=== PATIENT | male | born 1950 | race Caucasian/White ===

== ENCOUNTER → 2016-10-04 | Outpatient (CLI) | payer BC ==
[2016-10-04 07:42] LABS: ALT 43 U/L (21-72); AST 22 U/L (17-59); Alkaline Phosphatase 46 U/L (38-126); Anion Gap 11 mmol/L; Blood Urea Nitrogen 32 mg/dL (9-20); Calcium 9.5 mg/dL (8.4-10.2); Carbon Dioxide 26 mmol/L (22-30); Chloride 105 mmol/L (98-107); Cholesterol 197 mg/dL (<200); Glucose 102 mg/dL (74-99); HDL Cholesterol 38 mg/dL (40-60); Non-African American GFR(MDRD) >60 (>60 ml/min/1.73 sqM); Potassium 3.8 mmol/L (3.5-5.1); Sodium 142 mmol/L (137-145); Total Bilirubin 0.6 mg/dL (0.2-1.3); Total Protein 7.5 g/dL (6.3-8.2); Triglycerides 257 mg/dL (<150)
== END | disposition home or self-care (01) ==
LOC: LABWHC1 06:39
PROVIDERS: ATTEND Internal Medicine Endocrinology, Diabetes & Metabolism
DX: E11.65 Type 2 diabetes mellitus with hyperglycemia (principal)
CPT/HCPCS: 36415; 80053; 80061; 82043

== ENCOUNTER → 2018-01-01 | Outpatient (CLI) | payer MEDICARE ==
[2018-01-01 13:26] LABS: ALT 31 U/L (21-72); AST 21 U/L (17-59); Albumin 4.5 g/dL (3.5-5.0); Alkaline Phosphatase 67 U/L (38-126); Anion Gap 14 mmol/L; Blood Urea Nitrogen 27 mg/dL (9-20); Calcium 9.8 mg/dL (8.4-10.2); Carbon Dioxide 29 mmol/L (22-30); Chloride 98 mmol/L (98-107); Cholesterol 160 mg/dL (<200); Glucose 110 mg/dL (74-99); HDL Cholesterol 35 mg/dL (40-60); LDL Cholesterol,Calculated 75 mg/dL (0-99); Potassium 4.3 mmol/L (3.5-5.1); Sodium 141 mmol/L (137-145); Total Protein 7.5 g/dL (6.3-8.2); Triglycerides 250 mg/dL (<150)
== END ==
LOC: LABWHC1 12:27
PROVIDERS: ATTEND Internal Medicine Endocrinology, Diabetes & Metabolism
DX: E11.65 Type 2 diabetes mellitus with hyperglycemia (principal)
CPT/HCPCS: 36415; 80053; 80061; 82043; 82570

== ENCOUNTER → 2018-09-25 | Outpatient (CLI) | payer MEDICARE ==
[2018-09-25 09:54] LABS: HGB 15.3 gm/dL (13.0-17.5); MCH 28.5 pg (25.0-35.0); MCHC 32.6 g/dL (31.0-37.0); MCV 87.4 fL (80.0-100.0); Mean Platelet Volume 6.7; Platelet Count 237 k/uL (150-450); RBC 5.38 m/uL (4.30-5.90); RDW 14.5 % (11.5-15.5); WBC 5.5 k/uL (3.8-10.6)
[2018-09-25 10:04] LABS: Anion Gap 9 mmol/L; Blood Urea Nitrogen 30 mg/dL (9-20); Carbon Dioxide 27 mmol/L (22-30); Chloride 105 mmol/L (98-107); Potassium 4.4 mmol/L (3.5-5.1); Sodium 141 mmol/L (137-145)
== END | disposition home or self-care (01) ==
LOC: LABPAT 08:54
PROVIDERS: ATTEND Internal Medicine Interventional Cardiology
DX: I10 Essential (primary) hypertension (principal); I20.9 Angina pectoris, unspecified; I44.7 Left bundle-branch block, unspecified
CPT/HCPCS: 80051; 82565; 84520; 85027

== ENCOUNTER 2018-10-08 10:08 | Day surgery (SDC) | payer MEDICARE ==
[2018-10-06 13:25] VITALS: BMI 51.3
[~2018-10-08 10:08] MED LIST: ALPRAZolam 0.25 MG TAB PO PRN; ALPRAZolam 0.5 MG TAB PO PRN; ASPIRIN 325 MG TAB PO ONE; ATORVASTATIN 80 MG TAB PO ONE; NITROGLYCERIN SL TABS 0.4 MG TAB SUBLINGUAL PRN; SODIUM CHLORIDE 0.9% 1,000 ML in EMPTY BAG 1 BAG IV ONE
[2018-10-08 11:04] VITALS: TEMP 98.1
[2018-10-08 11:06] LABS: Glucose,Whole Blood 131 mg/dL (75-99)
[2018-10-08] MEDS ORDERED: SODIUM CHLORIDE 0.9% 1,000 ML IV ONE (11:16)
[2018-10-08] MEDS ORDERED: HEPARIN SODIUM 1,000 UN/ML (10ML VL) ONE (12:49)
[2018-10-08] MEDS ORDERED: VERAPAMIL 2.5 MG/ML 2 ML AMP ONE (12:49)
[2018-10-08] MEDS ORDERED: LIDOCAINE 1% INJ 10MG/ML (20 ML MDV) ONE (12:49)
[2018-10-08] MEDS ORDERED: fentaNYL (PF) 50 MCG/ML 2 ML AMP ONE (12:49)
[2018-10-08] MEDS ORDERED: fentaNYL (PF) 50 MCG/ML 2 ML AMP IV ONE (12:53)
[2018-10-08] MEDS ORDERED: LIDOCAINE 1% INJ 10MG/ML (20 ML MDV) SQ ONE ×2 (12:56→12:57)
[2018-10-08] MEDS ORDERED: VERAPAMIL SYRINGE (5 MG/10 ML) INTRAARTER ONE (12:57)
[2018-10-08] MEDS ORDERED: HEPARIN SODIUM 1,000 UN/ML (10ML VL) IV ONE (13:00)
[2018-10-08] MEDS ORDERED: IOPAMIDOL-370 125ML BTL INJ ONE (13:12)
[2018-10-08] MEDS ORDERED: RX INFO: IV CONTRAST WAS GIVEN 1 EACH MISC MISCELLANE PRN (13:29)
[2018-10-08] MEDS ORDERED: SODIUM CHLORIDE 0.9% 1,000 ML IV SCH (13:30)
--- NOTE | 2018-10-08 14:08 | CC ---
CARDIAC CATHETERIZATION REPORT Mr. Baez is a 68-year-old male with known history of hypertension, hyperlipidemia, diabetes mellitus, who recently was found to have evidence of left bundle branch block. He has been complaining of progressive dyspnea on exertion. His echocardiogram revealed evidence of mild cardiomyopathy and he had a fixed inferoapical inferoseptal wall defect with mild normalization. In view of that, recommendation made regarding cardiac catheterization. The procedures, risks and complications were discussed with the patient who is in full understanding and agreement. PROCEDURE: Patient was brought to the labeler in a fasting semi-sedated state after receiving fentanyl and Benadryl and achieving moderate conscious sedated state. Using Xylocaine anesthesia and Seldinger technique, a a 6-Vietnamese sheath was introduced in the right radial artery. Selective right and left coronary angiography was performed using 5- Vietnamese 3.5 bend right and left Juan catheter, multiple views of the coronary artery including hemiaxial views obtained. Following that, a 5-Vietnamese tight pigtail catheter was introduced in the left ventricle and a 30 degree JAMISON view of the left ventricle was obtained. Following that, catheter and sheath were removed. Hemostasis was obtained with deployment of a TR band. There was no immediate complication. Patient is returned to his room in stable condition. Of note, the patient received 5000 units of intravenous heparin as well as intra-arterial verapamil. FINDINGS: LEFT MAIN: This is a large-sized vessel bifurcating into left circumflex, left anterior descending artery, left main coronary artery has no evidence of high-grade stenosis. LEFT ANTERIOR DESCENDING ARTERY: This is a large-sized vessel, reaching toward the apex, tapers down the distal third, giving rise to 2 diagonal branches, proximally the left anterior descending artery has a 30% to 40% plaque. The rest of the vessel has no high-grade stenosis. LEFT CIRCUMFLEX: This is a codominant vessel, large in caliber, giving rise to a large obtuse marginal branch, distally giving rise to a PDA and a PLV. The left circumflex as well as branches have no evidence of high-grade stenosis. RIGHT CORONARY ARTERY: This is a codominant vessel, moderate in caliber, bifurcating distally into PDA and posterolateral segment branches. The right coronary artery as well as branches have no evidence of obstructive coronary artery disease. LEFT VENTRICULOGRAM: Left ventriculogram is performed in 30 degree JAMISON view and revealed normal left ventricular size with mild global hypokinesis. The estimated ejection fraction is 45%. There was no significant mitral regurgitation. HEMODYNAMICS: There was no gradient across the aortic valve. The left ventricle end-diastolic pressure was 12 to 14 mmHg. CONCLUSION: 1. Mild proximal LAD plaque. 2. Mildly impaired left ventricular systolic function. RECOMMENDATION: In view of finding anatomy, I would recommend continue medical therapy with aggressive coronary risk modifications being initiated. Depending on his left ventricular systolic function, the patient may be a candidate for a biventricular ICD implantation. Those findings and recommendation were discussed with the patient and his family and they are in full understanding and agreement. Duration of procedure, 21 minutes. MMODL / IJN: [id number] /
--- NOTE | 2018-10-08 14:14 | LTR ---
DATE OF SERVICE: 10/08/2017 RE: BaezGamaliel Dear Dr. Juarez; I had the pleasure to perform cardiac catheterization on Mr. Baez at [facility] on October 08, 2018 and a full copy of the procedure note will be forwarded to you. In brief, he was found to have mild disease involving the proximal LAD with a mildly impaired left ventricular systolic function. At this time, I would recommend to maximize his medical therapy and follow his left ventricular systolic function and depending on his progress, he may be a candidate for biventricular pacing. I will keep you updated on his progress and thank you again for allowing me to participate in this patient's care. Please feel free to call for any questions. Sincerely yours, MD NAYE Cardenas / ALBERTO: [id number] /
[2018-10-08 16:05] VITALS: PULSE 71; RESP 18
[2018-10-08] MEDS ORDERED: INSULIN ASPART 40 UNIT SQ SCH (17:30)
[2018-10-08 18:29] VITALS: BP 133/74
[2018-10-08] MEDS ORDERED: GLIPIZIDE 10 MG PO SCH (21:00)
[2018-10-08] MEDS ORDERED: NON-FORMULARY DRUG (Rosuvastatin 10 MG) PO SCH (21:00)
[2018-10-08] MEDS ORDERED: ENALAPRIL MALEATE 20 MG PO SCH (21:00)
[2018-10-08] MEDS ORDERED: INSULIN GLARGINE HUM REC ANLOG 100 UNIT SQ SCH (21:00)
[2018-10-09] MEDS ORDERED: NON-FORMULARY DRUG (Ubidecarenone [Co Q-10] 100 MG) PO SCH (09:00)
[2018-10-09] MEDS ORDERED: CHLORTHALIDONE 25 MG TAB PO SCH (09:00)
[2018-10-09] MEDS ORDERED: ASPIRIN 81 MG PO SCH (09:00)
[2018-10-09] MEDS ORDERED: ATENOLOL 50 MG TAB PO SCH (09:00)
[2018-10-09] MEDS ORDERED: Canagliflozin [Invokana] 300 MG PO SCH (09:00)
[2018-10-09] MEDS ORDERED: MULTIVITAMINS, THERA 1 EACH TAB PO SCH (12:00)
== END 2018-10-08 18:20 | disposition home or self-care (01) ==
LOC: CATHCVL 10:08
PROVIDERS: ATTEND Internal Medicine Interventional Cardiology
DX: I25.10 Atherosclerotic heart disease of native coronary artery without angina pectoris (principal); I11.9 Hypertensive heart disease without heart failure; I44.7 Left bundle-branch block, unspecified; Z82.49 Family history of ischemic heart disease and other diseases of the circulatory system; E78.2 Mixed hyperlipidemia; E78.00 Pure hypercholesterolemia, unspecified; G47.33 Obstructive sleep apnea (adult) (pediatric); E11.9 Type 2 diabetes mellitus without complications; Z79.4 Long term (current) use of insulin; Z79.899 Other long term (current) drug therapy
CPT/HCPCS: 93458; C1894; C1769; J2001; J3010; J1644; Q9967

== ENCOUNTER → 2018-10-23 | Outpatient (CLI) | payer MEDICARE ==
[2018-10-23 15:48] LABS: Basophils % (A) 1 %; Eosinophils # (A) 0.2 k/uL (0-0.7); Eosinophils % (A) 3 %; HCT 46.6 % (39.0-53.0); HGB 15.5 gm/dL (13.0-17.5); Lymphocytes # (A) 1.2 k/uL (1.0-4.8); Lymphocytes % (A) 16 %; MCH 29.1 pg (25.0-35.0); MCHC 33.2 g/dL (31.0-37.0); MCV 87.5 fL (80.0-100.0); Mean Platelet Volume 6.7; Monocytes # (A) 0.6 k/uL (0-1.0); Monocytes % (A) 8 %; Neutrophils # (A) 5.2 k/uL (1.3-7.7); Neutrophils % (A) 71 %; Platelet Count 236 k/uL (150-450); RBC 5.33 m/uL (4.30-5.90); RDW 14.4 % (11.5-15.5); WBC 7.4 k/uL (3.8-10.6)
[2018-10-23 23:07] LABS: Calcium 9.3 mg/dL (8.7-10.3); Potassium 4.9 mmol/L (3.5-5.5)
[2018-10-24 00:43] LABS: Anion Gap 12.1 mmol/L (4.00-12.00); Carbon Dioxide 26.9 mmol/L (21.6-31.8)
== END | disposition home or self-care (01) ==
LOC: LABWHC1 14:59
PROVIDERS: ATTEND Radiology Radiation Oncology
DX: C61 Malignant neoplasm of prostate (principal); Z92.3 Personal history of irradiation
CPT/HCPCS: 36415; 80048; 84153; 85025

== ENCOUNTER → 2019-04-19 | Outpatient (CLI) | payer MEDICARE ==
[2019-04-19 12:40] LABS: Basophils % (A) 1 %; Eosinophils # (A) 0.2 k/uL (0-0.7); Eosinophils % (A) 3 %; HCT 45.8 % (39.0-53.0); HGB 15.6 gm/dL (13.0-17.5); Lymphocytes # (A) 1.2 k/uL (1.0-4.8); Lymphocytes % (A) 19 %; MCH 29.6 pg (25.0-35.0); MCHC 34.1 g/dL (31.0-37.0); MCV 86.7 fL (80.0-100.0); Monocytes # (A) 0.5 k/uL (0-1.0); Monocytes % (A) 9 %; Neutrophils # (A) 4.3 k/uL (1.3-7.7); Neutrophils % (A) 67 %; Platelet Count 223 k/uL (150-450); RBC 5.28 m/uL (4.30-5.90); RDW 14.2 % (11.5-15.5); WBC 6.4 k/uL (3.8-10.6)
[2019-04-19 19:06] LABS: African American GFR (CKD) 102.1 (60.0-200.0); Anion Gap 7.2 mmol/L (4.00-12.00); BUN/Creat Ratio 42.22 Ratio (12.00-20.00); Calcium 9.6 mg/dL (8.7-10.3); Carbon Dioxide 27.8 mmol/L (21.6-31.8)
== END | disposition home or self-care (01) ==
LOC: LABWHC1 12:10
PROVIDERS: ATTEND Radiology Radiation Oncology
DX: C61 Malignant neoplasm of prostate (principal); Z92.3 Personal history of irradiation
CPT/HCPCS: 36415; 80048; 84153; 85025

== ENCOUNTER → 2019-06-17 | Outpatient (CLI) | payer MEDICARE ==
[2019-06-17 23:35] LABS: African American GFR (CKD) 102.1 (60.0-200.0); Albumin 4.5 g/dL (3.80-4.90); Albumin/Globulin Ratio 1.96 (1.60-3.17); Anion Gap 9.7 mmol/L (4.00-12.00); BUN/Creat Ratio 38.89 Ratio (12.00-20.00); Calcium 9.4 mg/dL (8.7-10.3); Carbon Dioxide 26.3 mmol/L (21.6-31.8); Chol/HDL Ratio 4.47; Globulin 2.3 g/dL (1.6-3.3); LDL Cholesterol,Calculated 62.4 mg/dL (0.0-131.0); Potassium 4.5 mmol/L (3.5-5.5); Total Bilirubin 0.7 mg/dL (0.3-1.2); Total Protein 6.8 g/dL (6.2-8.2); VLDL Calculation 55.6 mg/dL (5.00-40.00)
== END | disposition home or self-care (01) ==
LOC: LABWHC1 09:28
PROVIDERS: ATTEND Internal Medicine Endocrinology, Diabetes & Metabolism
DX: E11.65 Type 2 diabetes mellitus with hyperglycemia (principal)
CPT/HCPCS: 36415; 80053; 80061; 82043; 82570; 84443

== ENCOUNTER 2019-07-16 06:14 | Day surgery (SDC) | payer MEDICARE ==
[2019-07-14 10:40] VITALS: BMI 51.6
[~2019-07-16 06:14] MED LIST changes: -ALPRAZolam 0.25 MG TAB PO PRN; -ALPRAZolam 0.5 MG TAB PO PRN; -ASPIRIN 325 MG TAB PO ONE; -ATORVASTATIN 80 MG TAB PO ONE; +LACTATED RINGERS 1,000 ML IV SCH; -NITROGLYCERIN SL TABS 0.4 MG TAB SUBLINGUAL PRN; -SODIUM CHLORIDE 0.9% 1,000 ML in EMPTY BAG 1 BAG IV ONE
[2019-07-16 06:50] VITALS: TEMP 97.9
[2019-07-16 06:50] LABS: Glucose,Whole Blood 86 mg/dL (75-99)
[2019-07-16] MEDS ORDERED: fentaNYL (PF) 50 MCG/ML 2 ML AMP ONE (07:01)
[2019-07-16] MEDS ORDERED: PROPOFOL 10 MG/ML 20 ML VIAL IV ONE (07:01)
[2019-07-16] MEDS ORDERED: MIDAZOLAM 2 MG/2 ML VIAL ONE (07:01)
--- NOTE | 2019-07-16 07:36 | P.PCN ---
Date of Procedure: 07/16/19 Procedure(s) Performed: BRIEF HISTORY: Patient is a 69-year-old pleasant white male scheduled for an elective colonoscopy as a part of screening for colorectal neoplasia. PROCEDURE PERFORMED: Colonoscopy with snare polypectomy. PREOPERATIVE DIAGNOSIS: Screening for colon cancer. IV sedation per Anesthesia. PROCEDURE: After informed consent was obtained, the patient, was brought into the endoscopy unit. IV sedation was administered by Anesthesia under continuous monitoring. Digital rectal examination was normal. Initially the Olympus CF-160 flexible video colonoscope was then inserted in the rectum, gradually advanced into the cecum without any difficulty. Careful examination was performed as the scope was gradually being withdrawn. Ileocecal valve and the appendiceal orifice were visualized and appeared normal. Prep was extremely poor throughout the entire colon. Thorough irrigation was performed. Visualized portions of the mucosa of the cecum, appeared normal. In the ascending colon there were 2 polyps measuring 5 mm in size both of which were removed by snare polypectomy. In the proximal transverse colon there was a 2 mm sessile polyp removed by snare polypectomy. Rest of the visualized portions of the mucosa of the ascending colon, transverse colon, descending colon, sigmoid colon, and rectum appeared normal. . Areas in the descending colon; could not be adequately visualized because of poor prep that could not be thoroughly irrigated. Retroflexion was performed in the rectum and no lesions were seen. The patient tolerated the procedure well. IMPRESSION: 5 mm proximal ascending colon polyp status post polypectomy 2 mm sessile transverse colon polyp status post-polypectomy Extremely poor prep throughout the entire colon RECOMMENDATIONS: Findings of this examination were discussed with the patient as well as his family. He was advised to follow with the biopsy results and have a repeat coloscopy in 3 years
[2019-07-16 07:40] VITALS: RESP 16
[2019-07-16 07:45] LABS: Glucose,Whole Blood 82 mg/dL (75-99)
[2019-07-16 07:55] VITALS: BP 103/67; PULSE 90
== END 2019-07-16 08:23 | disposition home or self-care (01) ==
LOC: ORWHC2ENDO 06:14
PROVIDERS: ATTEND Internal Medicine Gastroenterology
DX: Z12.11 Encounter for screening for malignant neoplasm of colon (principal); D12.2 Benign neoplasm of ascending colon; I10 Essential (primary) hypertension; E78.5 Hyperlipidemia, unspecified; E11.9 Type 2 diabetes mellitus without complications; Z87.891 Personal history of nicotine dependence; Z85.46 Personal history of malignant neoplasm of prostate; Z79.4 Long term (current) use of insulin; Z79.899 Other long term (current) drug therapy; Z96.659 Presence of unspecified artificial knee joint
CPT/HCPCS: 88305; 45385; J2250; J3010; J2704

== ENCOUNTER → 2019-10-07 | Outpatient (CLI) | payer MEDICARE ==
[2019-10-07 13:08] LABS: Urine Creatinine 65.3 mg/dL
[2019-10-07 14:01] LABS: Hemoglobin A1C 8.3 % (4.0-6.0)
[2019-10-07 14:24] LABS: African American GFR (CKD) 102.1 (60.0-200.0); Albumin 4.8 g/dL (3.80-4.90); Albumin/Globulin Ratio 2.09 (1.60-3.17); Anion Gap 11.5 mmol/L (4.00-12.00); BUN/Creat Ratio 45.56 Ratio (12.00-20.00); Calcium 9.6 mg/dL (8.7-10.3); Carbon Dioxide 24.5 mmol/L (21.6-31.8); Globulin 2.3 g/dL (1.6-3.3); Non-African American GFR(CKD) 88.1 (60.0-200.0); Potassium 4.6 mmol/L (3.5-5.5); Total Bilirubin 0.6 mg/dL (0.2-1.2); Total Protein 7.1 g/dL (6.2-8.2)
[2019-10-07 14:25] LABS: Chol/HDL Ratio 4.27; LDL Cholesterol,Calculated 58.6 mg/dL (0.0-131.0); VLDL Calculation 49.4 mg/dL (5.00-40.00)
== END | disposition home or self-care (01) ==
LOC: LABWHC1 07:30
PROVIDERS: ATTEND Internal Medicine Endocrinology, Diabetes & Metabolism
DX: E11.65 Type 2 diabetes mellitus with hyperglycemia (principal)
CPT/HCPCS: 36415; 80053; 80061; 82043; 82570; 83036; 84443

== ENCOUNTER 2020-01-25 05:19 | Emergency (ER) | payer MEDICARE ==
[2020-01-25 05:30] VITALS: PULSE 111; RESP 22; TEMP 98.4
[2020-01-25 05:56] LABS: Appearance,Urine Cloudy (Clear); Bilirubin,Urine Negative (Negative); Blood,Urine Large (Negative); Color,Urine Red; Glucose,Urine (UA) 4+ (Negative); Ketones,Urine Negative (Negative); Leukocyte Esterase,Urine Moderate (Negative); Nitrite,Urine Negative (Negative); PH, Urine 5.5 (5.0-8.0); Protein,Urine 1+ (Negative); RBC,Urine >182 /hpf (0-5); Specific Gravity,Urine 1.017 (1.001-1.035); Urobilinogen,Urine <2.0 mg/dL (<2.0)
[2020-01-25 05:57] LABS: WBC,Urine 10 /hpf (0-5)
--- NOTE | 2020-01-25 05:58 | ED ---
Male Urogenital HPI - General Chief complaint: Urogenital Stated complaint: Blood in urine Time Seen by Provider: 01/25/20 05:51 Source: patient Mode of arrival: ambulatory Limitations: no limitations - History of Present Illness Initial comments: This patient is 69-year-old man who presents to be evaluated for symptoms related to urination that is been going on for about 2 hours now. Patient states that he started feeling near to urinate and then noticed that his urine initially had a or just tinge and then became frankly bloody. He is feeling fr equent urge to urinate but only urinating small volumes. He denies other symptoms. No fever or chills. No dysuria. No penile discharge. No abdominal or flank pain. No testicular pain or mass. MD Complaint: other Onset/Timin -: hour(s) Severity scale (1-10): 0 Consistency: constant Improves with: none Worsens with: none Reports: blood in urine, other (Frequency) - Related Data Home Medications Medication Instructions Recorded Confirmed Atenolol/Chlorthalidone 1 tab PO DAILY 09/13/17 01/25/20 [Atenolol-Chlorthalidone 50-25] Canagliflozin [Invokana] 300 mg PO DAILY 09/13/17 01/25/20 Enalapril Maleate [Vasotec] 20 mg PO BID 09/13/17 01/25/20 Multivitamin/Iron/Folic Acid 1 tab PO DAILY 09/13/17 01/25/20 [Centrum Complete Multivit Tab] Ubidecarenone [Co Q-10] 100 mg PO DAILY 09/13/17 01/25/20 glipiZIDE XL [Glucotrol XL] 10 mg PO BID 09/13/17 01/25/20 metFORMIN HCL ER [Glucophage Xr] 1,000 mg PO BID 09/14/17 01/25/20 Insulin Aspart [NovoLOG Flexpen] 40 units SQ TID-W/MEALS 10/06/18 01/25/20 Insulin Glargine,Hum.rec.anlog 100 units SQ BID 10/06/18 01/25/20 [Tousarah Solostar] Rosuvastatin Calcium 20 mg PO HS 07/14/19 01/25/20 Previous Rx's Medication Instructions Recorded Ciprofloxacin HCl [Cipro] 500 mg PO Q12HR #14 tablet 01/25/20 Phenazopyridine [Pyridium] 100 mg PO TID #6 tablet 01/25/20 Allergies Allergy/AdvReac Type Severity Reaction Status Date / Time No Known Allergies Allergy Verified 01/25/20 05:30 Review of Systems ROS Statement: Those systems with pertinent positive or pertinent negative responses have been documented in the HPI. ROS Other: All systems not noted in ROS Statement are negative. Constitutional: Denies: fever, chills Respiratory: Denies: cough, dyspnea Cardiovascular: Denies: chest pain, palpitations, edema Gastrointestinal: Denies: abdominal pain, nausea, vomiting, diarrhea, constipation Genitourinary: Reports: frequency, hematuria. Denies: dysuria, discharge, testicular pain, testicular mass Musculoskeletal: Denies: back pain Skin: Denies: rash Hematological/Lymphatic: Denies: easy bleeding Past Medical History Past Medical History: Diabetes Mellitus, Hyperlipidemia, Hypertension History of Any Multi-Drug Resistant Organisms: None Reported Past Surgical History: Appendectomy, Orthopedic Surgery Past Anesthesia/Blood Transfusion Reactions: No Reported Reaction Past Psychological History: No Psychological Hx Reported Smoking Status: Never smoker Past Alcohol Use History: Rare Past Drug Use History: None Reported - Past Family History Father Family Medical History: Cancer Brother(s) Family Medical History: Cancer General Exam Limitations: no limitations General appearance: alert, in no apparent distress Head exam: Present: atraumatic, normocephalic Eye exam: Present: normal appearance Respiratory exam: Present: normal lung sounds bilaterally. Absent: respiratory distress, wheezes, rales, rhonchi, stridor Cardiovascular Exam: Present: regular rate, normal rhythm, normal heart sounds. Absent: systolic murmur, diastolic murmur, rubs, gallop GI/Abdominal exam: Present: soft. Absent: distended, tenderness, guarding, rebound, rigid, mass Extremities exam: Present: normal capillary refill, pedal edema. Absent: calf tenderness Back exam: Absent: CVA tenderness (R), CVA tenderness (L) Neurological exam: Present: alert Skin exam: Present: warm, dry, intact, normal color. Absent: rash Course Vital Signs 01/25/20 05:24 Temperature 98.4 F Pulse Rate 111 H Respiratory 22 Rate Blood Pressure 154/105 O2 Sat by Pulse 94 L Oximetry Medical Decision Making - Lab Data Lab Results 01/25/20 Range/Units 05:37 Urine Color Red Urine Appearance Cloudy (Clear) Urine pH 5.5 (5.0-8.0) Ur Specific [place] 1.017 (1.001-1.035) Urine Protein 1+ H (Negative) Urine Glucose (UA) 4+ H (Negative) Urine Ketones Negative (Negative) Urine Blood Large H (Negative) Urine Nitrite Negative (Negative) Urine Bilirubin Negative (Negative) Urine Urobilinogen <2.0 (<2.0) mg/dL Ur Leukocyte Esterase Moderate H (Negative) Urine RBC >182 H (0-5) /hpf Urine WBC 10 H (0-5) /hpf Disposition Clinical Impression: Hematuria Disposition: HOME SELF-CARE Condition: Good Instructions (If sedation given, give patient instructions): Urinary Tract Infection in Men (ED) Prescriptions: Ciprofloxacin HCl [Cipro] 500 mg PO Q12HR #14 tablet Phenazopyridine [Pyridium] 100 mg PO TID #6 tablet Is patient prescribed a controlled substance at d/c from ED?: No Referrals: Darren Juarez DO [Primary Care Provider] - 1-2 days
--- NOTE | 2020-01-25 07:02 | CT ---
EXAMINATION TYPE: CT abdomen pelvis wo con DATE OF EXAM: 01/25/2020 HISTORY: Hematuria CT DLP: 2877 mGycm. Automated Exposure Control for Dose Reduction was Utilized. TECHNIQUE: CT scan of the abdomen and pelvis is performed without oral or IV contrast. COMPARISON: CT abdomen and pelvis September 13, 2017. FINDINGS: Within the limitations of a non-contrast study, the following observations are made. LUNG BASES: Focal Left basilar linear scarring and/or atelectasis redemonstrated. LIVER/GB: No significant abnormality is appreciated. PANCREAS: No significant abnormality is seen. SPLEEN: No significant abnormality is seen. ADRENALS: No significant abnormality is seen. KIDNEYS: No renal stones or hydronephrosis is seen bilaterally. No intraluminal calculi in the poorly distended bladder. BOWEL: Small bowel feces sign in the terminal ileum. No suspicious small or large bowel dilatation. F inding consistent with delayed passage of ingested material to colonic level. GENITAL ORGANS: Upper limits of normal. Occasional scattered phleboliths. LYMPH NODES: No greater than 1cm abdominal or pelvic lymph nodes are appreciated. OSSEOUS STRUCTURES: Moderate chronic compression fracture L1 level. Reversal of normal curvature. Mod erate multilevel disc space narrowing and vacuum disc phenomenon mid to lower lumbar spine. OTHER: No significant additional abnormality is seen. IMPRESSION: No renal stones or hydronephrosis is seen bilaterally. No acute findings clearly identifi ed.
[2020-01-25] MEDS ORDERED: LEVOFLOXACIN 750 MG TAB PO STA (07:20)
[2020-01-25] MEDS ORDERED: PHENAZOPYRIDINE 100 MG TAB PO STA (07:20)
[2020-01-25 08:00] VITALS: BP 149/99
== END 2020-01-25 08:00 | disposition home or self-care (01) ==
LOC: EC 05:19
DX: R31.9 Hematuria, unspecified (principal); E11.9 Type 2 diabetes mellitus without complications; E78.5 Hyperlipidemia, unspecified; I10 Essential (primary) hypertension; Z79.4 Long term (current) use of insulin; Z79.899 Other long term (current) drug therapy
CPT/HCPCS: 74176; 81001; 87086; 99284

== ENCOUNTER 2020-04-12 18:27 | Inpatient (IN) | payer MEDICARE ==
[2020-04-12] MEDS ORDERED: ACETAMINOPHEN TAB 500 MG TAB PO STA (18:48)
--- NOTE | 2020-04-12 19:02 | ED ---
General Adult HPI - General Chief complaint: Skin/Abscess/Foreign Body Stated complaint: leg swelling/redness Time Seen by Provider: 04/12/20 18:48 Source: patient Mode of arrival: wheelchair Limitations: no limitations - History of Present Illness Initial comments: Dictation was produced using [employer] dictation software. please excuse any grammatical, word or spelling errors. This patient was cared for during a federal and state declared state of emergency secondary to Covid 19 Chief Complaint: 70-year-old male presents with left lower extremity cellulitic symptoms History of Present Illness: Patient is a 70-year-old male he has past medical history of cellulitis to both extremities on multiple occasions. Since yesterday patient has been having redness and pain to his left lower extremity. 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 They've been applying this new medication on there. Yesterday his leg started to look red and painful. Today patient has been feeling consti tutional symptoms. He has been feeling lightheaded and having fevers with chills. at bedside reports that patient usually presents this way when he's had cellulitis in his legs before. Denies any urinary symptoms. No cough no abdominal pain. The ROS documented in this emergency department record has been reviewed and confirmed by me. Those systems with pertinent positive or negative responses have been documented in the HPI. All other systems are other negative and/or noncontributory. PHYSICAL EXAM: General Impression: Alert and oriented x3, not in acute distress HEENT: Normocephalic atraumatic, extra-ocular movements intact, pupils equal and reactive to light bilaterally, mucous membranes moist. Cardiovascular: Heart regular rate and rhythm Chest: Able to complete full sentences, no retractions, no tachypnea Abdomen: abdomen soft, non-tender, non-distended, no organomegaly Musculoskeletal: Pulses present and equal in all extremities, no peripheral edema Motor: no focal deficits noted Neurological: CN II-XII grossly intact, no focal motor or sensory deficits noted Skin: Warm and redness to the left lower extremity, circumferential. Tenderness to palpation of the left tibial area Psych: Normal affect and mood ED course: 70-year-old male presents with clinical presentation consistent with cellulitis. Vital signs upon arrival shows temperature 102.8, heart rate 123, oxygen saturation of 90%. Clinical presentation concerning for sepsis secondary to shortness cellulitis. Patient given 2250 mL of normal saline per sepsis guidelines. His ideal body weight is 75 kg for 5 10 height. Laboratory evaluation obtained. No leukocytosis. Rest of CBC unremarkable. Coag panel unremarkable. Metabolic panel shows elevated BUN. Glucose 102. Urinalysis shows greater than 182 white blood cells. X-ray of the tibia-fibula shows edema and cellulitis without any soft tissue gas chest x-ray is nonacute. Patient will be admitted for early sepsis. No concern for necrotizing fasciitis at this time given that patient labs are benign and imaging does not suggest any gas formation in the leg. Discussed patient case with Dr. Juarez was A patient care. Patient given vancomycin and Zosyn. Family is agreeable to disposition. Infectious disease on consult EKG interpretation: Ventricular rate 119, sinus tachycardia, left bundle branch block. Interval 136, QRS 134, QTC 549. No AL prolongation, no QTC prolongation, no ST or T-wave changes noted. No old EKG for comparison. Overall, this EKG is unremarkable - Related Data Home Medications Medication Instructions Recorded Confirmed Atenolol/Chlorthalidone 1 tab PO DAILY 09/13/17 01/25/20 [Atenolol-Chlorthalidone 50-25] Canagliflozin [Invokana] 300 mg PO DAILY 09/13/17 01/25/20 Enalapril Maleate [Vasotec] 20 mg PO BID 09/13/17 01/25/20 Multivitamin/Iron/Folic Acid 1 tab PO DAILY 09/13/17 01/25/20 [Centrum Complete Multivit Tab] Ubidecarenone [Co Q-10] 100 mg PO DAILY 09/13/17 01/25/20 glipiZIDE XL [Glucotrol XL] 10 mg PO BID 09/13/17 01/25/20 metFORMIN HCL ER [Glucophage Xr] 1,000 mg PO BID 09/14/17 01/25/20 Insulin Aspart [NovoLOG Flexpen] 40 units SQ TID-W/MEALS 10/06/18 01/25/20 Insulin Glargine,Hum.rec.anlog 100 units SQ BID 10/06/18 01/25/20 [Tousarah Solostar] Rosuvastatin Calcium 20 mg PO HS 07/14/19 01/25/20 Previous Rx's Medication Instructions Recorded Ciprofloxacin HCl [Cipro] 500 mg PO Q12HR #14 tablet 01/25/20 Phenazopyridine [Pyridium] 100 mg PO TID #6 tablet 01/25/20 Allergies Allergy/AdvReac Type Severity Reaction Status Date / Time No Known Allergies Allergy Verified 04/12/20 18:40 Review of Systems ROS Statement: Those systems with pertinent positive or pertinent negative responses have been documented in the HPI. ROS Other: All systems not noted in ROS Statement are negative. Past Medical History Past Medical History: Diabetes Mellitus, Hyperlipidemia, Hypertension History of Any Multi-Drug Resistant Organisms: None Reported Past Surgical History: Appendectomy, Orthopedic Surgery Past Anesthesia/Blood Transfusion Reactions: No Reported Reaction Past Psychological History: No Psychological Hx Reported Smoking Status: Former smoker Past Alcohol Use History: Rare Past Drug Use History: None Reported - Past Family History Father Family Medical History: Cancer Brother(s) Family Medical History: Cancer General Exam Limitations: no limitations Course Vital Signs 04/12/20 04/12/20 18:37 19:45 Temperature 102.8 F H 99.9 F H Pulse Rate 123 H 110 H Respiratory 20 18 Rate Blood Pressure 142/59 128/71 O2 Sat by Pulse 90 L 98 Oximetry Medical Decision Making - Lab Data Result diagrams: 04/12/20 19:12 04/12/20 19:12 Lab Results 04/12/20 04/12/20 04/12/20 Range/Units 19:12 19:12 19:12 WBC 8.9 (3.8-10.6) k/uL RBC 5.45 (4.30-5.90) m/uL Hgb 15.6 (13.0-17.5) gm/dL Hct 47.5 (39.0-53.0) % MCV 87.2 (80.0-100.0) fL MCH 28.6 (25.0-35.0) pg MCHC 32.8 (31.0-37.0) g/dL RDW 15.0 (11.5-15.5) % Plt Count 207 (150-450) k/uL Neutrophils % 94 % Lymphocytes % 3 % Monocytes % 1 % Eosinophils % 1 % Basophils % 0 % Neutrophils # 8.4 H (1.3-7.7) k/uL Lymphocytes # 0.3 L (1.0-4.8) k/uL Monocytes # 0.1 (0-1.0) k/uL Eosinophils # 0.1 (0-0.7) k/uL Basophils # 0.0 (0-0.2) k/uL PT 10.1 (9.0-12.0) sec INR 1.0 (<1.2) APTT 25.6 (22.0-30.0) sec Sodium (137-145) mmol/L Potassium (3.5-5.1) mmol/L Chloride (98-107) mmol/L Carbon Dioxide (22-30) mmol/L Anion Gap mmol/L BUN (9-20) mg/dL Creatinine (0.66-1.25) mg/dL Est GFR (CKD-EPI)AfAm (>60 ml/min/1.73 sqM) Est GFR (CKD-EPI)NonAf (>60 ml/min/1.73 sqM) Glucose (74-99) mg/dL Plasma Lactic Acid Salomon (0.7-2.0) mmol/L Calcium (8.4-10.2) mg/dL Total Bilirubin (0.2-1.3) mg/dL AST (17-59) U/L ALT (4-49) U/L Alkaline Phosphatase (38-126) U/L Creatine Kinase (55-170) U/L Total Protein (6.3-8.2) g/dL Albumin (3.5-5.0) g/dL Urine Color Yellow Urine Appearance Cloudy (Clear) Urine pH 6.0 (5.0-8.0) Ur Specific [place] 1.023 (1.001-1.035) Urine Protein 1+ H (Negative) Urine Glucose (UA) 4+ H (Negative) Urine Ketones Negative (Negative) Urine Blood Small H (Negative) Urine Nitrite Negative (Negative) Urine Bilirubin Negative (Negative) Urine Urobilinogen <2.0 (<2.0) mg/dL Ur Leukocyte Esterase Large H (Negative) Urine RBC 5 (0-5) /hpf Urine WBC >182 H (0-5) /hpf Urine WBC Clumps Many H (None) /hpf Urine Bacteria Few H (None) /hpf Hyaline Casts 1 (0-2) /lpf Urine Mucus Rare H (None) /hpf 07/29/20 07/29/20 Range/Units 19:12 19:12 WBC (3.8-10.6) k/uL RBC (4.30-5.90) m/uL Hgb (13.0-17.5) gm/dL Hct (39.0-53.0) % MCV (80.0-100.0) fL MCH (25.0-35.0) pg MCHC (31.0-37.0) g/dL RDW (11.5-15.5) % Plt Count (150-450) k/uL Neutrophils % % Lymphocytes % % Monocytes % % Eosinophils % % Basophils % % Neutrophils # (1.3-7.7) k/uL Lymphocytes # (1.0-4.8) k/uL Monocytes # (0-1.0) k/uL Eosinophils # (0-0.7) k/uL Basophils # (0-0.2) k/uL PT (9.0-12.0) sec INR (<1.2) APTT (22.0-30.0) sec Sodium 136 L (137-145) mmol/L Potassium 4.2 (3.5-5.1) mmol/L Chloride 101 (98-107) mmol/L Carbon Dioxide 25 (22-30) mmol/L Anion Gap 10 mmol/L BUN 41 H (9-20) mg/dL Creatinine 1.06 (0.66-1.25) mg/dL Est GFR (CKD-EPI)AfAm 84 (>60 ml/min/1.73 sqM) Est GFR (CKD-EPI)NonAf 72 (>60 ml/min/1.73 sqM) Glucose 192 H (74-99) mg/dL Plasma Lactic Acid Salomon 1.5 (0.7-2.0) mmol/L Calcium 8.6 (8.4-10.2) mg/dL Total Bilirubin 1.5 H (0.2-1.3) mg/dL AST 40 (17-59) U/L ALT 28 (4-49) U/L Alkaline Phosphatase 77 (38-126) U/L Creatine Kinase 417 H (55-170) U/L Total Protein 7.1 (6.3-8.2) g/dL Albumin 4.1 (3.5-5.0) g/dL Urine Color Urine Appearance (Clear) Urine pH (5.0-8.0) Ur Specific [place] (1.001-1.035) Urine Protein (Negative) Urine Glucose (UA) (Negative) Urine Ketones (Negative) Urine Blood (Negative) Urine Nitrite (Negative) Urine Bilirubin (Negative) Urine Urobilinogen (<2.0) mg/dL Ur Leukocyte Esterase (Negative) Urine RBC (0-5) /hpf Urine WBC (0-5) /hpf Urine WBC Clumps (None) /hpf Urine Bacteria (None) /hpf Hyaline Casts (0-2) /lpf Urine Mucus (None) /hpf Disposition Clinical Impression: Cellulitis, UTI (urinary tract infection) Disposition: ADMITTED IP TO THIS HOSP Condition: Fair Referrals: Darren Juarez DO [Primary Care Provider] - 1-2 days Decision Time: 20:55
[2020-04-12] MEDS ORDERED: SODIUM CHLORIDE 0.9% 500 ML 250 ML IV STA (19:03)
[2020-04-12] MEDS ORDERED: VANCOMYCIN IV PER PHARMACY 1 EACH MISC MISCELLANE PRN (19:04)
[2020-04-12] MEDS ORDERED: VANCOMYCIN 2,500 MG in SODIUM CHLORIDE 0.9% 500 ML 500 ML IVPB STA (19:09)
[2020-04-12] MEDS: SODIUM CHLORIDE 0.9% 500 ML 500 ML IV SCH ×4 (19:15→21:07)
[2020-04-12 19:21] LABS: Basophils % (A) 0 %; Eosinophils # (A) 0.1 k/uL (0-0.7); Eosinophils % (A) 1 %; HCT 47.5 % (39.0-53.0); HGB 15.6 gm/dL (13.0-17.5); Lymphocytes # (A) 0.3 k/uL (1.0-4.8); Lymphocytes % (A) 3 %; MCH 28.6 pg (25.0-35.0); MCHC 32.8 g/dL (31.0-37.0); MCV 87.2 fL (80.0-100.0); Mean Platelet Volume 7.6; Monocytes # (A) 0.1 k/uL (0-1.0); Monocytes % (A) 1 %; Neutrophils # (A) 8.4 k/uL (1.3-7.7); Neutrophils % (A) 94 %; Platelet Count 207 k/uL (150-450); RBC 5.45 m/uL (4.30-5.90); WBC 8.9 k/uL (3.8-10.6)
[2020-04-12 19:33] LABS: Albumin 4.1 g/dL (3.5-5.0); Calcium 8.6 mg/dL (8.4-10.2); Potassium 4.2 mmol/L (3.5-5.1); Total Bilirubin 1.5 mg/dL (0.2-1.3); Total Protein 7.1 g/dL (6.3-8.2)
[2020-04-12 19:39] LABS: Partial Thromboplastin Time 25.6 sec (22.0-30.0); Prothrombin Time 10.1 sec (9.0-12.0)
[2020-04-12 19:42] LABS: Appearance,Urine Cloudy (Clear); Bacteria,Urine Few /hpf; Bilirubin,Urine Negative (Negative); Blood,Urine Small (Negative); Color,Urine Yellow; Glucose,Urine (UA) 4+ (Negative); Hyaline Casts,Urine 1 /lpf (0-2); Ketones,Urine Negative (Negative); Leukocyte Esterase,Urine Large (Negative); Mucus,Urine Rare /hpf; Nitrite,Urine Negative (Negative); Protein,Urine 1+ (Negative); RBC,Urine 5 /hpf (0-5); Specific Gravity,Urine 1.023 (1.001-1.035); Urobilinogen,Urine <2.0 mg/dL (<2.0); WBC,Urine >182 /hpf (0-5)
--- NOTE | 2020-04-12 19:43 | XR ---
Left leg HISTORY: Cellulitis Frontal and lateral views of the left leg, correlation prior exam left knee 02/16/2013 Patient is status post left knee arthroplasty. There is lucency in the soft tissues. No periostitis e vident to suggest osteomyelitis. No fracture or dislocation. IMPRESSION: Correlate for edema, cellulitis.
--- NOTE | 2020-04-12 19:45 | XR ---
EXAMINATION TYPE: XR chest 1V portable DATE OF EXAM: 04/12/2020 COMPARISON: Prior chest x-ray 09/16/2017 HISTORY: Fever, abnormal chest x-ray TECHNIQUE: Single frontal view of the chest is obtained on 2 images. FINDINGS: There is no focal air space opacity, pleural effusion, or pneumothorax seen. Some minimal scarring thought present in the lingula The cardiac silhouette size is within normal limits. The o sseous structures are remarkable for some deformities in the left suggesting old fractures which have healed. Postop change in the left shoulder IMPRESSION: No acute process. Old fractures, correlate for appropriate history, there is scarring at the left lung base
[2020-04-12] MEDS ORDERED: PIPERACILLIN-TAZOBACTAM 3.375 GM in SODIUM CHLORIDE 0.9% 100 ML IVPB STA (19:55)
[2020-04-12] MEDS ORDERED: NALOXONE 0.4 MG/ML 1 ML VIAL IV PRN (20:51)
[2020-04-12] MEDS ORDERED: ACETAMINOPHEN TAB 325 MG TAB PO PRN (20:51)
[2020-04-12] MEDS ORDERED: ONDANSETRON 4 MG/2 ML VIAL IVP PRN (20:51)
[2020-04-12] MEDS ORDERED: MORPHINE SULFATE 4 MG/ML SYRINGE IV PRN (20:51)
[2020-04-12] MEDS: SODIUM CHLORIDE 0.9% 1,000 ML IV SCH (22:25)
[2020-04-12] MEDS: HEPARIN SODIUM,PORCINE 5,000 UNIT/ML 1 ML VIAL SQ SCH (23:58)
[2020-04-13 07:00] LABS: Glucose,Whole Blood 131 mg/dL (75-99)
[2020-04-13] MEDS: PANTOPRAZOLE 40 MG/10 ML VIAL IV SCH (09:00)
[2020-04-13] MEDS: HEPARIN SODIUM,PORCINE 5,000 UNIT/ML 1 ML VIAL SQ SCH ×3 (09:00→23:44)
[2020-04-13] MEDS ORDERED: CHLORTHALIDONE PO SCH (09:30)
[2020-04-13] MEDS ORDERED: ATENOLOL PO SCH (09:30)
[2020-04-13] MEDS ORDERED: NON FORMULARY DRUG (Ubidecarenone [Co Q-10] 100 MG) PO SCH (09:30)
[2020-04-13] MEDS: CANAGLIFLOZIN 300 MG PO SCH (10:29)
[2020-04-13] MEDS ORDERED: VANCOMYCIN 2,250 MG in SODIUM CHLORIDE 0.9% 500 ML 500 ML IVPB SCH (11:00)
[2020-04-13] MEDS: CALCIUM ACETATE-ALUMINUM SULF 1 EACH PACKET TOPICAL SCH ×2 (11:10→20:28)
[2020-04-13] MEDS: atenoloL 50 MG TAB PO SCH (11:11)
[2020-04-13] MEDS: INSULIN DETEMIR (LEVEMIR) 100 UNIT/ML SYR SQ SCH ×2 (11:11→20:27)
[2020-04-13] MEDS: glipiZIDE 10 MG TAB PO SCH ×2 (11:11→20:28)
[2020-04-13] MEDS: lisinopriL 20 MG TAB PO SCH ×2 (11:11→20:28)
--- NOTE | 2020-04-13 11:29 | P.HPIM ---
History of Present Illness H&P Date: 04/13/20 Chief Complaint: Worsening lower extremity cellulitis, chills, fevers This is a 70-year-old gentleman with medical history of chronic back pain, lumbar fracture, diabetes, hypertension, hyperlipidemia and multiple other medical issues presented to the ER with complaints of worsening cellulitis of the left lower extremity, 2 days of fever and chills, nausea vomiting 1 with accompanying lightheadedness. On admission T-max 102.8, normal WBC. Hematology unremarkable with the exception of elevated neutrophils 8.4 and low lymphocytes 0.3. Sodium 136, potassium 4.2, BUN 41, creatinine 1.06, glucose 192, total bili 1.5, creatinine kinase 417. Coagulation unremarkable. UA reporting elevated WBCs 182, large leukocytes, negative nitrates, 4+ glucose, negative ketones, culture pending. Blood cultures pending. Coronavirus pending. Chest x-ray reports no acute process, old healed fractures scarring of left lung base. 2 feeds via x-ray reporting lucency and soft tissues, no periostitis to suggest osteomyelitis, no fracture or dislocation, positive edema, positive cellulitis. EKG reporting sinus tachycardia, left bundle branch block. Denies any chest pain, palpitations or shortness of breath. Currently denies any lightheadedness, dizziness or focal deficits. Denies any abdominal pain. Denies urinary frequency or suprapubic pain. Review of Systems ROS Statement: Those systems with pertinent positive or pertinent negative responses have been documented in the HPI. ROS Other: All systems not noted in ROS Statement are negative. Past Medical History Past Medical History: Diabetes Mellitus, Hyperlipidemia, Hypertension History of Any Multi-Drug Resistant Organisms: None Reported Past Surgical History: Appendectomy, Orthopedic Surgery Past Anesthesia/Blood Transfusion Reactions: No Reported Reaction Past Psychological History: No Psychological Hx Reported Smoking Status: Never smoker Past Alcohol Use History: Rare Past Drug Use History: None Reported - Past Family History Father Family Medical History: Cancer Brother(s) Family Medical History: Cancer Medications and Allergies Home Medications Medication Instructions Recorded Confirmed Type Atenolol/Chlorthalidone 1 tab PO DAILY 09/13/17 04/12/20 History [Atenolol-Chlorthalidone 50-25] Canagliflozin [Invokana] 300 mg PO DAILY 09/13/17 04/12/20 History Enalapril Maleate [Vasotec] 20 mg PO BID 09/13/17 04/12/20 History Multivitamin/Iron/Folic Acid 1 tab PO HS 09/13/17 04/12/20 History [Centrum Complete Multivit Tab] Ubidecarenone [Co Q-10] 100 mg PO DAILY 09/13/17 04/12/20 History glipiZIDE XL [Glucotrol XL] 10 mg PO BID 09/13/17 04/12/20 History metFORMIN HCL ER [Glucophage Xr] 1,000 mg PO BID 09/14/17 04/12/20 History Insulin Aspart [NovoLOG Flexpen] See Protocol SQ TID-W/MEALS 10/06/18 04/12/20 History Insulin Glargine,Hum.rec.anlog 60 units SQ BID 10/06/18 04/12/20 History [Toujeo Solostar] Rosuvastatin Calcium 20 mg PO HS 07/14/19 04/12/20 History Aspirin EC [Ecotrin Low Dose] 81 mg PO HS 04/12/20 04/12/20 History Calcium Acetate-Aluminum Sulf 1 packet TOPICAL BID 04/12/20 04/12/20 History [[place] Packet] Clobetasol Propionate [Temovate 1 applic TOPICAL BID 04/12/20 04/12/20 History 0.05% Oint] Hydrocortisone Oint 1 applic TOPICAL BID 04/12/20 04/12/20 History [Hydrocortisone 2.5% Oint] Rosuvastatin [Crestor] 20 mg PO HS 04/12/20 04/12/20 History Allergies Allergy/AdvReac Type Severity Reaction Status Date / Time No Known Allergies Allergy Verified 04/12/20 20:56 Physical Exam Vitals: Vital Signs Temp Pulse Pulse Resp BP BP Pulse Ox 04/13/20 07:00 98.0 F 86 16 122/76 91 L 04/13/20 01:19 98.0 F 89 20 137/75 94 L 04/13/20 00:00 92 20 04/12/20 22:00 98.2 F 92 20 135/75 92 L 04/12/20 21:09 98.4 F 95 16 131/65 93 L 04/12/20 19:45 99.9 F H 110 H 18 128/71 93 L 04/12/20 18:37 102.8 F H 123 H 20 142/59 90 L Intake and Output 04/12/20 04/13/20 04/13/20 22:59 06:59 14:59 Intake Total 300 620 Balance 300 620 Intake: Intake, IV Titration 100 220 Amount Piperacillin-Tazobactam 3 100 100 .375 gm In Sodium Chloride 0.9% 100 ml @ 200 mls/hr IVPB ONCE STA Rx#:[id number] Sodium Chloride 0.9% 1, 120 000 ml @ 20 mls/hr IV . Q24H [facility] Rx#:[id number] Oral 200 400 Other: Voiding Method Toilet # Voids 3 Weight 167.829 kg PHYSICAL EXAM: VITAL SIGNS: As above GENERAL: Sitting up in bed, in no acute distress HEENT: Conjunctivae normal. eyes normal. Oral mucosa moist NECK: No JVD. No thyroid enlargement. No LNs CARDIOVASCULAR: S1, S2 regular.. No murmur RESPIRATION: Breath sounds diminished in the bases. No rhonchi or crackles. No bronchial breathing. ABDOMEN: Soft, nontender . No guarding. no masses palpable. No ascites, No hepatosplenomegaly.Bowel sounds heard. LEGS: Bilateral lower extremity with stasis dermatitis, left lower extremity with topical anterior tibia molting/weeping with edema, redness, erythema, tenderness. PSYCHIATRY: Alert and oriented X3, mood and affect normal. NERVOUS SYSTEM: Cranial N 2-12 grossly normal. Moves all 4 limbs. Diffuse weakness No focal deficits. Strength and sensation grossly intact.. Skin: Warm and dry, no rash Lymphatic system. No LN neck axilla. Results CBC & Chem 7: 04/12/20 19:12 04/12/20 19:12 Labs: Abnormal Lab Results - Last 24 Hours (Table) 04/12/20 04/12/20 04/12/20 Range/Units 19:12 19:12 19:12 Neutrophils # 8.4 H (1.3-7.7) k/uL Lymphocytes # 0.3 L (1.0-4.8) k/uL Sodium 136 L (137-145) mmol/L BUN 41 H (9-20) mg/dL Glucose 192 H (74-99) mg/dL POC Glucose (mg/dL) (75-99) mg/dL Total Bilirubin 1.5 H (0.2-1.3) mg/dL Creatine Kinase 417 H (55-170) U/L Urine Protein 1+ H (Negative) Urine Glucose (UA) 4+ H (Negative) Urine Blood Small H (Negative) Ur Leukocyte Esterase Large H (Negative) Urine WBC >182 H (0-5) /hpf Urine WBC Clumps Many H (None) /hpf Urine Bacteria Few H (None) /hpf Urine Mucus Rare H (None) /hpf 04/13/20 Range/Units 06:59 Neutrophils # (1.3-7.7) k/uL Lymphocytes # (1.0-4.8) k/uL Sodium (137-145) mmol/L BUN (9-20) mg/dL Glucose (74-99) mg/dL POC Glucose (mg/dL) 131 H (75-99) mg/dL Total Bilirubin (0.2-1.3) mg/dL Creatine Kinase (55-170) U/L Urine Protein (Negative) Urine Glucose (UA) (Negative) Urine Blood (Negative) Ur Leukocyte Esterase (Negative) Urine WBC (0-5) /hpf Urine WBC Clumps (None) /hpf Urine Bacteria (None) /hpf Urine Mucus (None) /hpf Microbiology - Last 24 Hours (Table) 04/12/20 19:12 Urine Culture - Preliminary Urine,Voided Thrombosis Risk Factor Assmnt - Choose All That Apply Each Factor Represents 1 point: Obesity (BMI >25), Swollen legs (current) Each Risk Factor Represents 2 Points: Age 61-74 years Thrombosis Risk Factor Assessment Total Risk Factor Score: 4 Thrombosis Risk Factor Assessment Level: Moderate Risk Assessment and Plan Assessment: Sepsis secondary to bilateral lower lower extremity cellulitis, greatest on the left, possible acute UTI, possible bacteremia present on admission. Workup in progress. Diabetes mellitus type 2, uncontrolled, hyperglycemia Hypertension Hyperlipidemia Degenerative joint disease Chronic back pain Morbid obesity, BMI currently not documented Hospital course: Continue on current medication regime ,monitoring and symptomatic treatment. Silvadene wraps ordered for bilateral lower extremity cellulitis. Urine cultures pending. Currently on Zosyn for antibiotic coverage. Infectious disease consulted with recommendations pending. Tight blood sugar control. GI and DVT prophylaxis in place. The impression and plan of care has been dictated as directed. : I performed a history and examination of this patient, discussed the same with the dictator. I agree with the dictator's note ,documented as a scribe. Any additional findings or plans will be noted.
[2020-04-13 11:30] LABS: Glucose,Whole Blood 173 mg/dL (75-99)
[2020-04-13] MEDS ORDERED: PIPERACILLIN-TAZOBACTAM 3.375 GM in SODIUM CHLORIDE 0.9% 100 ML IVPB SCH (12:00)
[2020-04-13] MEDS: INSULIN ASPART (NovoLOG) 100 UNIT/ML VIAL SQ SCH ×3 (13:15→20:37)
[2020-04-13 16:42] LABS: Glucose,Whole Blood 266 mg/dL (75-99)
[2020-04-13 17:47] LABS: Hemoglobin A1C 8.8 % (4.0-6.0)
[2020-04-13 20:27] LABS: Glucose,Whole Blood 281 mg/dL (75-99)
[2020-04-13] MEDS: ASPIRIN 81 MG PO SCH (20:27)
[2020-04-13] MEDS: MULTIVITAMINS, THERA 1 EACH TAB PO SCH (20:27)
[2020-04-13] MEDS: ATORVASTATIN 40 MG TAB PO SCH (20:27)
[2020-04-13] MEDS: SODIUM CHLORIDE 0.9% 1,000 ML IV SCH (20:28)
--- NOTE | 2020-04-13 23:25 | P.CONS ---
History of Present Illness - Reason for Consult Consult date: 04/13/20 left lower extremity cellulitis Requesting physician: Darren Juarez - Chief Complaint left leg swelling and redness 1 day - History of Present Illness patient is 70-year-old male with a past medical history significant for bilateral lower extremity wound and cellulitis in this patient is in the hospital with acute pain and swelling and redness of left lower extremity of one day duration, patient did have diffuse swelling and redness of left lower extremity in the complaining of some dull aching pain to the left leg with intensity 4-5 out of 10 and no radiation patient currently do not have any open wound or any purulent drainage patient has been complaining of some chills and on arrival to the ER the patient did have a fever of 102F the patient did have x-rays of the left leg which did show some soft tissue swelling correlated for cellulitis chest x-ray was negative patient has been started on vancomycin and Zosyn and admitted to the hospital infectious disease was consulted for further management of antibiotic therapy Review of Systems Positive point has been mentioned in the HPI rest of the systems are negative Past Medical History Past Medical History: Diabetes Mellitus, Hyperlipidemia, Hypertension History of Any Multi-Drug Resistant Organisms: None Reported Past Surgical History: Appendectomy, Orthopedic Surgery Past Anesthesia/Blood Transfusion Reactions: No Reported Reaction Past Psychological History: No Psychological Hx Reported Smoking Status: Never smoker Past Alcohol Use History: Rare Past Drug Use History: None Reported - Past Family History Father Family Medical History: Cancer Brother(s) Family Medical History: Cancer Medications and Allergies Home Medications Medication Instructions Recorded Confirmed Type Atenolol/Chlorthalidone 1 tab PO DAILY 09/13/17 04/12/20 History [Atenolol-Chlorthalidone 50-25] Canagliflozin [Invokana] 300 mg PO DAILY 09/13/17 04/12/20 History Enalapril Maleate [Vasotec] 20 mg PO BID 09/13/17 04/12/20 History Multivitamin/Iron/Folic Acid 1 tab PO HS 09/13/17 04/12/20 History [Centrum Complete Multivit Tab] Ubidecarenone [Co Q-10] 100 mg PO DAILY 09/13/17 04/12/20 History glipiZIDE XL [Glucotrol XL] 10 mg PO BID 09/13/17 04/12/20 History metFORMIN HCL ER [Glucophage Xr] 1,000 mg PO BID 09/14/17 04/12/20 History Insulin Aspart [NovoLOG Flexpen] See Protocol SQ TID-W/MEALS 10/06/18 04/12/20 History Insulin Glargine,Hum.rec.anlog 60 units SQ BID 10/06/18 04/12/20 History [Toujeo Solostar] Rosuvastatin Calcium 20 mg PO HS 07/14/19 04/12/20 History Aspirin EC [Ecotrin Low Dose] 81 mg PO HS 04/12/20 04/12/20 History Calcium Acetate-Aluminum Sulf 1 packet TOPICAL BID 04/12/20 04/12/20 History [[place] Packet] Clobetasol Propionate [Temovate 1 applic TOPICAL BID 04/12/20 04/12/20 History 0.05% Oint] Hydrocortisone Oint 1 applic TOPICAL BID 04/12/20 04/12/20 History [Hydrocortisone 2.5% Oint] Rosuvastatin [Crestor] 20 mg PO HS 04/12/20 04/12/20 History Allergies Allergy/AdvReac Type Severity Reaction Status Date / Time No Known Allergies Allergy Verified 04/12/20 20:56 Physical Exam Vitals: Vital Signs Temp Pulse Pulse Resp BP BP Pulse Ox 04/13/20 14:10 98.0 F 68 17 122/83 93 L 04/13/20 07:00 98.0 F 86 16 122/76 91 L 04/13/20 01:19 98.0 F 89 20 137/75 94 L 04/13/20 00:00 92 20 04/12/20 22:00 98.2 F 92 20 135/75 92 L 04/12/20 21:09 98.4 F 95 16 131/65 93 L 04/12/20 19:45 99.9 F H 110 H 18 128/71 93 L 04/12/20 18:37 102.8 F H 123 H 20 142/59 90 L Intake and Output 04/13/20 04/13/20 04/13/20 06:59 14:59 22:59 Intake Total 620 540 Balance 620 540 Intake: Intake, IV Titration 220 Amount Piperacillin-Tazobactam 3 100 .375 gm In Sodium Chloride 0.9% 100 ml @ 200 mls/hr IVPB ONCE STA Rx#:[id number] Sodium Chloride 0.9% 1, 120 000 ml @ 20 mls/hr IV . Q24H [facility] Rx#:[id number] Oral 400 540 Other: Voiding Method Toilet Toilet # Voids 3 3 GENERAL DESCRIPTION: an elderly male lying in bed, no distress. No tachypnea or accessory muscle of respiration use. HEENT: Shows Pallor , no scleral icterus. Oral mucous membrane is dry. No pharyngeal erythema or thrush NECK: Trachea central, no thyromegaly. LUNGS: Unlabored breathing. Clear to auscultation anteriorly. No wheeze or crackle. HEART: S1, S2, regular rate and rhythm. No loud murmur ABDOMEN: Soft, no tenderness , guarding or rigidity, no organomegaly EXTREMITIES: left leg with diffuse swelling redness or warmth no induration. SKIN: No rash, no masses palpable. NEUROLOGICAL: The patient is awake, alert, oriented x3, mood and affect normal. Results CBC & Chem 7: 04/12/20 19:12 04/12/20 19:12 Labs: Abnormal Lab Results - Last 24 Hours (Table) 04/12/20 04/12/20 04/12/20 Range/Units 19:12 19:12 19:12 Neutrophils # 8.4 H (1.3-7.7) k/uL Lymphocytes # 0.3 L (1.0-4.8) k/uL Sodium 136 L (137-145) mmol/L BUN 41 H (9-20) mg/dL Glucose 192 H (74-99) mg/dL POC Glucose (mg/dL) (75-99) mg/dL Total Bilirubin 1.5 H (0.2-1.3) mg/dL Creatine Kinase 417 H (55-170) U/L Urine Protein 1+ H (Negative) Urine Glucose (UA) 4+ H (Negative) Urine Blood Small H (Negative) Ur Leukocyte Esterase Large H (Negative) Urine WBC >182 H (0-5) /hpf Urine WBC Clumps Many H (None) /hpf Urine Bacteria Few H (None) /hpf Urine Mucus Rare H (None) /hpf 04/13/20 04/13/20 Range/Units 06:59 11:29 Neutrophils # (1.3-7.7) k/uL Lymphocytes # (1.0-4.8) k/uL Sodium (137-145) mmol/L BUN (9-20) mg/dL Glucose (74-99) mg/dL POC Glucose (mg/dL) 131 H 173 H (75-99) mg/dL Total Bilirubin (0.2-1.3) mg/dL Creatine Kinase (55-170) U/L Urine Protein (Negative) Urine Glucose (UA) (Negative) Urine Blood (Negative) Ur Leukocyte Esterase (Negative) Urine WBC (0-5) /hpf Urine WBC Clumps (None) /hpf Urine Bacteria (None) /hpf Urine Mucus (None) /hpf Microbiology - Last 24 Hours (Table) 04/12/20 19:12 Urine Culture - Preliminary Urine,Voided Assessment and Plan Assessment: 1- patient presented to hospital with sepsis in this patient did have a fever tachycardia cirrhosis acute left lower extremity cellulitis in this patient did have diffuse swelling and redness likely represents streptococcal cellulitis clinically doubt MRSA or gram-negative infection (1) Sepsis Current Visit: Yes Status: Acute Code(s): A41.9 - SEPSIS, UNSPECIFIED ORGANISM SNOMED Code(s): 81588493 (2) Left leg cellulitis Current Visit: Yes Status: Acute Code(s): L03.116 - CELLULITIS OF LEFT LOWER LIMB SNOMED Code(s): 910423130 Plan: 1- discontinue vancomycin and Zosyn 2- start the patient cefazolin 2 g every 8 hours 3- Bernardino wrap to the leg from just above the toe to below the knee We will follow on clinical condition and cultures to further adjust medication if needed Thank you for this consultation will follow this patient with you Time with Patient: Greater than 30
[2020-04-14 06:54] LABS: Glucose,Whole Blood 118 mg/dL (75-99)
[2020-04-14] MEDS: INSULIN ASPART (NovoLOG) 100 UNIT/ML VIAL SQ SCH ×4 (07:51→21:37)
[2020-04-14] MEDS: CANAGLIFLOZIN 300 MG PO SCH (07:51)
[2020-04-14] MEDS: lisinopriL 20 MG TAB PO SCH ×2 (08:03→21:36)
[2020-04-14] MEDS: glipiZIDE 10 MG TAB PO SCH ×2 (08:03→21:36)
[2020-04-14] MEDS: atenoloL 50 MG TAB PO SCH (08:03)
[2020-04-14] MEDS: HEPARIN SODIUM,PORCINE 5,000 UNIT/ML 1 ML VIAL SQ SCH ×2 (08:04→16:48)
[2020-04-14] MEDS: PANTOPRAZOLE 40 MG/10 ML VIAL IV SCH (08:07)
[2020-04-14] MEDS: CALCIUM ACETATE-ALUMINUM SULF 1 EACH PACKET TOPICAL SCH ×2 (08:14→21:44)
[2020-04-14] MEDS: INSULIN DETEMIR (LEVEMIR) 100 UNIT/ML SYR SQ SCH ×2 (08:15→21:35)
[2020-04-14 08:18] LABS: HCT 46.5 % (39.0-53.0); HGB 14.9 gm/dL (13.0-17.5); MCH 28.4 pg (25.0-35.0); MCV 88.8 fL (80.0-100.0); Mean Platelet Volume 7.5; Platelet Count 212 k/uL (150-450); RBC 5.23 m/uL (4.30-5.90); RDW 14.9 % (11.5-15.5); WBC 6.5 k/uL (3.8-10.6)
[2020-04-14 08:50] LABS: ALT 29 U/L (4-49); AST 30 U/L (17-59); African American GFR (CKD) >90 (>60 ml/min/1.73 sqM); Albumin 3.9 g/dL (3.5-5.0); Alkaline Phosphatase 64 U/L (38-126); Anion Gap 10 mmol/L; Blood Urea Nitrogen 26 mg/dL (9-20); Calcium 8.7 mg/dL (8.4-10.2); Carbon Dioxide 26 mmol/L (22-30); Chloride 107 mmol/L (98-107); Glucose 109 mg/dL (74-99); Non-African American GFR(CKD) >90 (>60 ml/min/1.73 sqM); Potassium 4.5 mmol/L (3.5-5.1); Sodium 143 mmol/L (137-145); Total Bilirubin 0.8 mg/dL (0.2-1.3); Total Protein 6.9 g/dL (6.3-8.2)
[2020-04-14 09:58] LABS: Band Neutrophils % 1 %; Eosinophils # (M) 0.13 k/uL (0-0.7); Lymphocytes # (M) 1.04 k/uL (1.0-4.8); Monocytes # (M) 0.52 k/uL (0-1.0); Neutrophils % (M) 73 %; Nucleated Red Blood Cells 0 /100 WBC (0-0); Poikilocytosis (M) Present; Total Cells Counted 100
[2020-04-14] MEDS: SILVER sulfADIAZINE Cream 400 GM 1 APPLIC APPLIC TOPICAL SCH (10:01)
[2020-04-14 11:23] LABS: Glucose,Whole Blood 213 mg/dL (75-99)
--- NOTE | 2020-04-14 15:04 | P.PN ---
Subjective Progress Note Date: 04/14/20 Principal diagnosis: Chief Complaint: Worsening lower extremity cellulitis, chills, fevers This is a 70-year-old gentleman with medical history of chronic back pain, lumbar fracture, diabetes, hypertension, hyperlipidemia and multiple other medical issues presented to the ER with complaints of worsening cellulitis of the left lower extremity, 2 days of fever and chills, nausea vomiting 1 with accompanying lightheadedness. On admission T-max 102.8, normal WBC. Hematology unremarkable with the exception of elevated neutrophils 8.4 and low lymphocytes 0.3. Sodium 136, potassium 4.2, BUN 41, creatinine 1.06, glucose 192, total bili 1.5, creatinine kinase 417. Coagulation unremarkable. UA reporting elevated WBCs 182, large leukocytes, negative nitrates, 4+ glucose, negative ketones, culture pending. Blood cultures pending. Coronavirus pending. Chest x-ray reports no acute process, old healed fractures scarring of left lung base. 2 feeds via x-ray reporting lucency and soft tissues, no periostitis to suggest osteomyelitis, no fracture or dislocation, positive edema, positive cellulitis. EKG reporting sinus tachycardia, left bundle branch block. Denies any chest pain, palpitations or shortness of breath. Currently denies any lig htheadedness, dizziness or focal deficits. Denies any abdominal pain. Denies urinary frequency or suprapubic pain. 04/14/2020 Patient is seen and evaluated in follow-up with urine cultures preliminary showing gram-negative bacilli. Patient is being closely monitored. Infectious disease is following. Patient is maintained on IV antibiotics in the form of cefazolin and will continue at this time while awaiting for cultures to finalize. Blood cultures thus far continue to be negative. white blood count is 6.5 today. Sodium is 143, creatinine is 0.75. Patient remains on sliding scale along with long-acting and will continue at this time. Continue monitoring blood sugars before meals and at bedtime and treat accordingly. Patient also has some bilateral lower extremity cellulitis worse on the left and is continued on wound care. Bernardino wraps noted in dressings are dry and intact. Patient does have bilateral lower extremities elevated at this time. No edema noted. Currently patient denies any chest pain, shortness of breath, or palpitations. Patient is afebrile. No reports of nausea or vomiting and patient is tolerating diet. Review of systems: constitutional: No reports of fatigue, fevers, or chills Cardiovascular: No reports of chest pain or palpitations Respiratory: No reports of shortness of breath or cough GI: No reports of nausea, vomiting, or diarrhea : No reports of dysuria or retention Active Medications Acetaminophen (Tylenol Tab) 650 mg PO Q6HR PRN PRN Reason: Mild Pain or Fever > 100.5 Aluminum Sulfate/Calcium Acetate ([place] Packet) 1 each TOPICAL BID [facility] Last Admin: 04/14/20 08:14 Dose: Not Given Documented by: Aspirin (Aspirin) 81 mg PO [facility] Last Admin: 04/13/20 20:27 Dose: 81 mg Documented by: Atenolol (Tenormin) 50 mg PO DAILY [facility] Last Admin: 04/14/20 08:03 Dose: 50 mg Documented by: Atorvastatin Calcium (Lipitor) 40 mg PO [facility] Last Admin: 04/13/20 20:27 Dose: 40 mg Documented by: Glipizide (Glucotrol) 10 mg PO BID [facility] Last Admin: 04/14/20 08:03 Dose: 10 mg Documented by: Heparin Sodium (Porcine) (Heparin) 5,000 unit SQ Q8HR [facility] Last Admin: 04/14/20 08:04 Dose: 5,000 unit Documented by: Sodium Chloride (Saline 0.9%) 1,000 mls @ 20 mls/hr IV .Q24H [facility] Last Admin: 04/13/20 20:28 Dose: 20 mls/hr Documented by: Cefazolin Sodium 2 gm/ Sodium (Chloride) 50 mls @ 100 mls/hr IVPB Q8HR [facility] Last Admin: 04/14/20 08:27 Dose: 100 mls/hr Documented by: Insulin Aspart (Novolog) 0 unit SQ ACHS [facility]; Protocol Last Admin: 04/14/20 11:37 Dose: 6 unit Documented by: Insulin Detemir (Levemir) 60 unit SQ BID@0700,2100 [facility] Last Admin: 04/14/20 08:15 Dose: 60 unit Documented by: Lisinopril (Zestril) 40 mg PO BID [facility] Last Admin: 04/14/20 08:03 Dose: 40 mg Documented by: Morphine Sulfate (Morphine Sulfate (Inj)) 4 mg IV Q4HR PRN PRN Reason: Severe Pain Multivitamins (Theragran) 1 each PO HS [facility] Last Admin: 04/13/20 20:27 Dose: 1 each Documented by: Naloxone HCl (Narcan) 0.2 mg IV Q2M PRN PRN Reason: Opioid Reversal Non-Formulary Medication (Canagliflozin [Invokana]) 300 mg PO DAILY [facility] Last Admin: 04/14/20 07:51 Dose: Not Given Documented by: Ondansetron HCl (Zofran) 4 mg IVP Q8HR PRN PRN Reason: Nausea And Vomiting Pantoprazole Sodium (Protonix) 40 mg IV DAILY [facility] Last Admin: 04/14/20 08:07 Dose: 40 mg Documented by: Silver Sulfadiazine (Silvadene Cream) 1 applic TOPICAL DAILY [facility] Last Admin: 04/14/20 10:01 Dose: 1 applic Documented by: Objective - Vital Signs Vital signs: Vital Signs Temp 99.2 F 04/14/20 07:00 Pulse 79 04/14/20 10:38 Resp 20 04/14/20 07:00 BP 149/89 04/14/20 07:00 Pulse Ox 94 L 04/14/20 07:00 Intake & Output 04/13/20 04/14/20 04/14/20 18:59 06:59 18:59 Intake Total 540 960 200 Balance 540 960 200 Intake: Intake, IV Titration 60 Amount Sodium Chloride 0.9% 1, 60 000 ml @ 20 mls/hr IV . Q24H [facility] Rx#:[id number] Oral 540 900 200 Other: Voiding Method Toilet Toilet Toilet # Voids 3 2 2 - Exam VITAL SIGNS:temp is 97.8F, pulse is 66, respirations are 17, blood pressure is 121/80, oxygen saturation is 94% on room air. GENERAL: asleep but easily arousable sitting up in the chair, alert and oriented 3, well-developed, well-nourished, obese HEENT: Conjunctivae normal. eyes normal. Oral mucosa moist NECK: No JVD. No thyroid enlargement. No LNs CARDIOVASCULAR: S1, S2 regular.. No murmur RESPIRATION: Breath sounds diminished in the bases. No rhonchi or crackles. No bronchial breathing. ABDOMEN: Soft, obese, nontender . No guarding. no masses palpable. No ascites, No hepatosplenomegaly. Bowel sounds heard. LEGS: Bilateral lower extremity with stasis dermatitis, left lower extremity with topical anterior tibia molting/weeping with edema, redness, erythema, tenderness. erythema and swelling slightly improved. Bernardino wraps and dressings recently changed and are dry and intact PSYCHIATRY: Alert and oriented X3, mood and affect normal. NERVOUS SYSTEM: Cranial N 2-12 grossly normal. Moves all 4 limbs. Diffuse weakness No focal deficits. Strength and sensation grossly intact.. Skin: Warm and dry, no rash Lymphatic system. No LN neck axilla. - Labs CBC & Chem 7: 04/14/20 07:45 04/14/20 07:45 Labs: Abnormal Lab Results - Last 24 Hours (Table) 04/12/20 04/13/20 04/13/20 Range/Units 19:10 16:41 20:26 BUN (9-20) mg/dL Glucose (74-99) mg/dL POC Glucose (mg/dL) 266 H 281 H (75-99) mg/dL Hemoglobin A1c 8.8 H (4.0-6.0) % 04/14/20 04/14/20 04/14/20 Range/Units 06:52 07:45 11:22 BUN 26 H (9-20) mg/dL Glucose 109 H (74-99) mg/dL POC Glucose (mg/dL) 118 H 213 H (75-99) mg/dL Hemoglobin A1c (4.0-6.0) % Microbiology - Last 24 Hours (Table) 04/12/20 20:59 Blood Culture - Preliminary Blood No Growth after 24 hours 04/12/20 19:12 Urine Culture - Preliminary Urine,Voided Gram Neg Bacilli Assessment and Plan Assessment: Sepsis secondary to bilateral lower lower extremity cellulitis, greatest on the left, possible acute UTI, possible bacteremia present on admission. Diabetes mellitus type 2, uncontrolled, hyperglycemia Hypertension Hyperlipidemia Degenerative joint disease Chronic back pain Morbid obesity, BMI currently not documented GI prophylaxis: Protonix DVT prophylaxis: Subcu heparin plan: Continue current medications, management, and symptomatic treatment. She continues on IV cefazolin and will continue at this time. To continue with lo graham wound care and Silvadene wraps along with Bernardino wraps to bilateral lower extremities. Instructed to continue elevating the legs while at rest. Urine culture preliminary showing gram-negative bacilli and awaiting for culture finalization. Infectious disease is following. Patient to continue on sliding scale along with long-acting and will continue to monitor closely.CBC and BMP within normal limits. Will repeat a.m. labs and monitor closely. Further recommendations to follow. Will discharge in 24-48 hours.
[2020-04-14 17:00] LABS: Glucose,Whole Blood 259 mg/dL (75-99)
[2020-04-14 20:02] VITALS: RESP 18
[2020-04-14 20:39] LABS: Glucose,Whole Blood 320 mg/dL (75-99)
[2020-04-14] MEDS: ATORVASTATIN 40 MG TAB PO SCH (21:36)
[2020-04-14] MEDS: MULTIVITAMINS, THERA 1 EACH TAB PO SCH (21:36)
[2020-04-14] MEDS: ASPIRIN 81 MG PO SCH (21:36)
[2020-04-14] MEDS: SODIUM CHLORIDE 0.9% 1,000 ML IV SCH (21:38)
--- NOTE | 2020-04-14 23:39 | PN ---
PROGRESS NOTE DATE OF SERVICE: 04/14/2020 REASON FOR FOLLOWUP: Left lower extremity cellulitis. INTERVAL HISTORY: The patient is currently afebrile. The patient is breathing comfortably. The patient denies having any chest pain or shortness of breath or cough. No nausea, vomiting. No abdominal pain or diarrhea. PHYSICAL EXAMINATION: Blood pressure is 138/80 with a pulse of 77, temperature 98.5. He is 92% on room air. General description is an elderly male lying in bed in no distress. RESPIRATORY SYSTEM: Unlabored breathing. Clear to auscultation anteriorly. HEART: S1, S2. Regular rate and rhythm. ABDOMEN: Soft. No tenderness. Left leg swelling and redness slightly decreased. LABS: Hemoglobin is 14.9, white count 6.5, BUN of 26, creatinine 0.75. DIAGNOSTIC IMPRESSION AND PLAN: 1. Patient with left lower extremity cellulitis in this patient who is currently clinically responding to the cefazolin; to continue along with Bernardino wrap. 2. Positive urine culture. However, the patient does not have any urinary symptoms. Clinically doubt symptomatic UTI. No need for further coverage for the same. MMODL / IJN: [id number] /
[2020-04-15] MEDS: HEPARIN SODIUM,PORCINE 5,000 UNIT/ML 1 ML VIAL SQ SCH ×2 (00:29→07:33)
[2020-04-15 06:39] LABS: Glucose,Whole Blood 102 mg/dL (75-99)
[2020-04-15] MEDS: INSULIN ASPART (NovoLOG) 100 UNIT/ML VIAL SQ SCH ×2 (07:27→12:18)
[2020-04-15] MEDS: INSULIN DETEMIR (LEVEMIR) 100 UNIT/ML SYR SQ SCH (07:31)
[2020-04-15 07:33] VITALS: BP 142/86; PULSE 76; TEMP 98.7
[2020-04-15] MEDS: atenoloL 50 MG TAB PO SCH (07:34)
[2020-04-15] MEDS: lisinopriL 20 MG TAB PO SCH (07:34)
[2020-04-15] MEDS: glipiZIDE 10 MG TAB PO SCH (07:34)
[2020-04-15] MEDS: PANTOPRAZOLE 40 MG/10 ML VIAL IV SCH (07:34)
[2020-04-15] MEDS: CALCIUM ACETATE-ALUMINUM SULF 1 EACH PACKET TOPICAL SCH (07:35)
[2020-04-15] MEDS: SILVER sulfADIAZINE Cream 400 GM 1 APPLIC APPLIC TOPICAL SCH (07:35)
[2020-04-15] MEDS: CANAGLIFLOZIN 300 MG PO SCH (07:35)
[2020-04-15 07:44] LABS: African American GFR (CKD) >90 (>60 ml/min/1.73 sqM); Non-African American GFR(CKD) >90 (>60 ml/min/1.73 sqM)
[2020-04-15 07:49] LABS: HCT 42.6 % (39.0-53.0); HGB 14.1 gm/dL (13.0-17.5); MCH 29.4 pg (25.0-35.0); MCHC 33.2 g/dL (31.0-37.0); MCV 88.5 fL (80.0-100.0); Mean Platelet Volume 7.7; Platelet Count 197 k/uL (150-450); RBC 4.81 m/uL (4.30-5.90); RDW 14.8 % (11.5-15.5); WBC 6.1 k/uL (3.8-10.6)
[2020-04-15 08:26] LABS: Eosinophils # (M) 0.12 k/uL (0-0.7); Lymphocytes # (M) 0.85 k/uL (1.0-4.8); Monocytes # (M) 1.28 k/uL (0-1.0); Neutrophils # (M) 3.84 k/uL (1.3-7.7); Neutrophils % (M) 63 %; Nucleated Red Blood Cells 0 /100 WBC (0-0); Total Cells Counted 100
[2020-04-15 11:43] LABS: Glucose,Whole Blood 162 mg/dL (75-99)
--- NOTE | 2020-04-15 14:20 | PN ---
PROGRESS NOTE This is a redictation. REASON FOR FOLLOWUP: Left lower extremity cellulitis. INTERVAL HISTORY: Patient is currently afebrile. The patient is breathing comfortably. Patient denies having any chest pain. No shortness of breath or cough. No nausea, vomiting. No abdominal pain. Overall pain discomfort to the left leg has decreased. PHYSICAL EXAMINATION: Blood pressure is 140/86, pulse of 73, temperature 98.7. He is 95% on room air. General description is an elderly male up in the chair in no distress. Respiratory system: Unlabored breathing. Clear to auscultation anteriorly. Heart S1, S2. Regular rate and rhythm. Abdomen soft, no tenderness. Left leg swelling and redness has decreased. LABS: Hemoglobin is 14.3, white count 6.1, creatinine 0.76. Urine with Enterobacter. DIAGNOSTIC IMPRESSION AND PLAN: 1. Patient with left lower extremity cellulitis in this patient with overall clinical improvement on cefazolin, likely streptococcal disease. Finish therapy with oral Keflex. Prescription was sent to the pharmacy. 2. Positive culture with Enterobacter. Patient did not have any urinary symptom, possible contaminant. No need for any specific treatment for the same. This has been discussed in detail with the patient as well as at the bedside. MMODL / IJN: [id number] /
--- NOTE | 2020-04-15 20:32 | PN ---
PROGRESS NOTE DATE OF SERVICE: 04/15/2020. REASON FOR FOLLOW UP: Left lower extremity cellulitis. INTERVAL HISTORY: The patient is currently afebrile. The patient is breathing comfortably. He denies having any chest pain or shortness of breath or cough. No nausea or vomiting. No abdominal pain. No urinary symptoms. Left leg pain and swelling has improved. On examination, blood pressure is 142/86. Pulse is 76. Temperature 98.7. MMODL / IJN: [id number] /
[2020-04-16] MEDS ORDERED: PANTOPRAZOLE 40 MG TABLET PO SCH (09:00)
--- NOTE | 2020-04-17 15:09 | CDI ---
cellulitis follo Documentation Clarification Form Date: 04/17/2020 02:53:02 PM From: Sophie Ayala Phone: If you have a question about this query, please contact Josee Melendez [employer] at [phone] between 8am and 5pm. Admit Date: 04/12/2020 08:51:00 PM Patient Name: Gamaliel Baez Visit Number: [id number] Discharge Date: 04/15/2020 02:50:00 PM ATTENTION: The Clinical Documentation Specialists (CDI) and [facility] Coding Staff appreciate your assistance in clarifying documentation. Please respond to the clarification below the line at the bottom and electronically sign. The CDI & [facility] Coding staff will review the response and follow-up if needed. Please note: Queries are made part of the Legal Health Record. If you have any questions, please contact the author of this message via ITS. Dr. Darren Juarez Sepsis secondary to bilateral LE cellulits, greatest on the left. Patient also had DM with hyperglycemia. Please clarify if there is a link between the patient's cellulitis and diabetes. Clinical Indicators: cellulitis and DM fever Labs: Glucose 192 on admit Vital Signs: 102.8 F, 123 bpm, 20, 142/89 90% RA Other Clinical Indicators fever Treatment: Silvadene wraps for bilateral cellulitis, Zosyn Tigh Blood sugar controls Medication: Zosyn Consults: ID conult In your professional opinion, can you clarify if the cellulitis is linked to the DM Cellulitis linked to DM Cellulitis not linked to DM Other, please specify: Unable to determine cellulitis linked to diabetes and obesity MTDD
--- NOTE | 2020-04-23 22:59 | P.DS ---
Providers Date of admission: 04/12/20 20:51 Expected date of discharge: 04/15/20 Attending physician: Darren Juarez Consults: 04/12/20 20:52 Consult Physician Routine Consulting Provider: Piedad Nieves Consult Reason/Comments: infection Do you want consulting provider notified?: Yes Primary care physician: Darren Juarez [facility] Course: Discharge diagnosis Sepsis secondary to bilateral lower lower extremity cellulitis, greatest on the left, possible acute UTI,. urine culture showed Enterobacter species. Possible contaminant. No urinary symptoms. No need for antibiotics as per ID. Diabetes mellitus type 2, uncontrolled, hyperglycemia Hypertension Hyperlipidemia Degenerative joint disease Chronic back pain Morbid obesity, BMI currently not documented GI prophylaxis: Protonix DVT prophylaxis: Subcu heparin hospital course This is a 70-year-old gentleman with medical history of chronic back pain, lumba r fracture, diabetes, hypertension, hyperlipidemia and multiple other medical issues presented to the ER with complaints of worsening cellulitis of the left lower extremity, 2 days of fever and chills, nausea vomiting 1 with accompanying lightheadedness. On admission T-max 102.8, normal WBC. Hematology unremarkable with the exception of elevated neutrophils 8.4 and low lymphocytes 0.3. Sodium 136, potassium 4.2, BUN 41, creatinine 1.06, glucose 192, total bili 1.5, creatinine kinase 417. Coagulation unremarkable. UA reporting elevated WBCs 182, large leukocytes, negative nitrates, 4+ glucose, negative ketones, culture pending. Blood cultures pending. Coronavirus pending. Chest x-ray reports no acute process, old healed fractures scarring of left lung base. 2 feeds via x-ray reporting lucency and soft tissues, no periostitis to suggest osteomyelitis, no fracture or dislocation, positive edema, positive cellulitis. EKG reporting sinus tachycardia, left bundle branch block. Denies any chest pain, palpitations or shortness of breath. Currently denies any lightheadedness, dizziness or focal deficits. Denies any abdominal pain. Denies urinary frequency or suprapubic pain. 04/14/2020 Patient is seen and evaluated in follow-up with urine cultures preliminary showing gram-negative bacilli. Patient is being closely monitored. Infectious disease is following. Patient is maintained on IV antibiotics in the form of cefazolin and will continue at this time while awaiting for cultures to finalize. Blood cultures thus far continue to be negative. white blood count is 6.5 today. Sodium is 143, creatinine is 0.75. Patient remains on sliding scale along with long-acting and will continue at this time. Continue monitoring blood sugars before meals and at bedtime and treat accordingly. Patient also has some bilateral lower extremity cellulitis worse on the left and is continued on wound care. Bernardino wraps noted in dressings are dry and intact. Patient does have bilateral lower extremities elevated at this time. No edema noted. Currently patient denies any chest pain, shortness of breath, or palpitations. Patient is afebrile. No reports of nausea or vomiting and patient is tolerating diet. 04/15/2020 Patient is currently resting in the bed comfortably. Denied any complaints of chest pain or shortness of breath. No cough or sputum production. No dysuria or hematuria. Left leg pain and swelling is much improved. Patient will be discharged home with antibiotics and follow-up Keflex as per ID recommendations. Urine culture showed Enterobacter species. Patient does not have any urinary symptoms. No need for antibiotic regimen at this time. Patient has been afebrile.. PHYSICAL EXAMINATION GENERAL: asleep but easily arousable sitting up in the chair, alert and oriented 3, well-developed, well-nourished, obese HEENT: Conjunctivae normal. eyes normal. Oral mucosa moist NECK: No JVD. No thyroid enlargement. No LNs CARDIOVASCULAR: S1, S2 regular.. No murmur RESPIRATION: Breath sounds diminished in the bases. No rhonchi or crackles. No bronchial breathing. ABDOMEN: Soft, obese, nontender . No guarding. no masses palpable. No ascites, No hepatosplenomegaly. Bowel sounds heard. LEGS: Bilateral lower extremity with stasis dermatitis, left lower extremity with topical anterior tibia molting/weeping with edema, redness, erythema, tenderness. erythema and swelling slightly improved. Bernardino wraps and dressings recently changed and are dry and intact PSYCHIATRY: Alert and oriented X3, mood and affect normal. NERVOUS SYSTEM: Cranial N 2-12 grossly normal. Moves all 4 limbs. Diffuse weakness No focal deficits. Strength and sensation grossly intact.. Skin: Warm and dry, no rash Lymphatic system. No LN neck axilla. Discharge vitals reviewed. Patient Condition at Discharge: Fair Plan - Discharge Summary Discharge Rx Participant: Yes New Discharge Prescriptions: New Cephalexin [Keflex] 500 mg PO Q6HR #40 cap Continue glipiZIDE XL [Glucotrol XL] 10 mg PO BID Enalapril Maleate [Vasotec] 20 mg PO BID Ubidecarenone [Co Q-10] 100 mg PO DAILY Multivitamin/Iron/Folic Acid [Centrum Complete Multivit Tab] 1 tab PO HS Canagliflozin [Invokana] 300 mg PO DAILY Atenolol/Chlorthalidone [Atenolol-Chlorthalidone 50-25] 1 tab PO DAILY metFORMIN HCL ER [Glucophage Xr] 1,000 mg PO BID Insulin Aspart [NovoLOG Flexpen] See Protocol SQ TID-W/MEALS Insulin Glargine,Hum.rec.anlog [Toujeo Solostar] 60 units SQ BID Aspirin EC [Ecotrin Low Dose] 81 mg PO HS Rosuvastatin [Crestor] 20 mg PO HS Clobetasol Propionate [Temovate 0.05% Oint] 1 applic TOPICAL BID Hydrocortisone Oint [Hydrocortisone 2.5% Oint] 1 applic TOPICAL BID Calcium Acetate-Aluminum Sulf [[place] Packet] 1 packet TOPICAL BID Discontinued Rosuvastatin Calcium 20 mg PO HS Discharge Medication List Atenolol/Chlorthalidone [Atenolol-Chlorthalidone 50-25] 1 tab PO DAILY 09/13/17 [History] Canagliflozin [Invokana] 300 mg PO DAILY 09/13/17 [History] Enalapril Maleate [Vasotec] 20 mg PO BID 09/13/17 [History] Multivitamin/Iron/Folic Acid [Centrum Complete Multivit Tab] 1 tab PO HS 09/13/17 [History] Ubidecarenone [Co Q-10] 100 mg PO DAILY 09/13/17 [History] glipiZIDE XL [Glucotrol XL] 10 mg PO BID 09/13/17 [History] metFORMIN HCL ER [Glucophage Xr] 1,000 mg PO BID 09/14/17 [History] Insulin Aspart [NovoLOG Flexpen] See Protocol SQ TID-W/MEALS 10/06/18 [History] Insulin Glargine,Hum.rec.anlog [Toujeo Solostar] 60 units SQ BID 10/06/18 [History] Aspirin EC [Ecotrin Low Dose] 81 mg PO HS 04/12/20 [History] Calcium Acetate-Aluminum Sulf [[place] Packet] 1 packet TOPICAL BID 04/12/20 [History] Clobetasol Propionate [Temovate 0.05% Oint] 1 applic TOPICAL BID 04/12/20 [History] Hydrocortisone Oint [Hydrocortisone 2.5% Oint] 1 applic TOPICAL BID 04/12/20 [History] Rosuvastatin [Crestor] 20 mg PO HS 04/12/20 [History] Cephalexin [Keflex] 500 mg PO Q6HR #40 cap 04/15/20 [Rx] Follow up Appointment(s)/Referral(s): Darren Juarez DO [Primary Care Provider] - 1-2 days Patient Instructions/Handouts: Cellulitis (DC) Discharge Disposition: HOME SELF-CARE
== END 2020-04-15 14:50 | disposition home or self-care (01) | DRG 872 ==
LOC: EC 18:27 → 4SSUR 20:51
PROVIDERS: ADMIT Family Medicine; ATTEND Family Medicine
DX: A40.9 Streptococcal sepsis, unspecified (principal); L03.116 Cellulitis of left lower limb; L03.115 Cellulitis of right lower limb; Z68.43 Body mass index [BMI] 50.0-59.9, adult; N39.0 Urinary tract infection, site not specified; E11.65 Type 2 diabetes mellitus with hyperglycemia; E66.01 Morbid (severe) obesity due to excess calories; E78.5 Hyperlipidemia, unspecified; G89.29 Other chronic pain; I10 Essential (primary) hypertension; I44.7 Left bundle-branch block, unspecified; M19.90 Unspecified osteoarthritis, unspecified site; M54.9 Dorsalgia, unspecified; Z79.4 Long term (current) use of insulin; Z79.899 Other long term (current) drug therapy; Z90.49 Acquired absence of other specified parts of digestive tract; Z80.9 Family history of malignant neoplasm, unspecified; Z88.1 Allergy status to other antibiotic agents; Z88.8 Allergy status to other drugs, medicaments and biological substances; Z87.81 Personal history of (healed) traumatic fracture; Z87.891 Personal history of nicotine dependence; Z11.59 Encounter for screening for other viral diseases; E11.628 Type 2 diabetes mellitus with other skin complications; Z20.828 Contact with and (suspected) exposure to other viral communicable diseases; B96.89 Other specified bacterial agents as the cause of diseases classified elsewhere
CPT/HCPCS: 36415; 71045; 80053; 81001; 82550; 82565; 83036; 83605; 85025; 85610; 85730; 87040; 87077; 87086; 87186; 93005; 96365; 96366; 99284

== ENCOUNTER 2020-05-20 19:39 | Observation (INO) | payer MEDICARE ==
[2020-05-20] MEDS ORDERED: cefTRIAXone IN SWFI 1,000 MG/10 ML SYRINGE IVP STA (20:16)
[2020-05-20] MEDS ORDERED: SODIUM CHLORIDE 0.9% 1,000 ML IV STA (20:16)
[2020-05-20] MEDS ORDERED: Acetaminophen-Codeine 300-30mg TAB PO STA (20:17)
--- NOTE | 2020-05-20 20:21 | ED ---
Extremity Problem HPI - General Chief complaint: Extremity Problem,Nontraumatic Stated complaint: Lt leg redness Time Seen by Provider: 05/20/20 20:03 Source: patient, family Mode of arrival: ambulatory Limitations: no limitations - History of Present Illness Initial comments: Patient is a 70-year-old male morbidly obese, diabetic, chronic wound presenting to the emergency department with chief complaint of an infection. Patient states that he was watching TV about 5 hours prior to arrival and felt sudden discomfort in his infected wound on the left lower leg. States he examined the wound and noticed it was more erythematous than usual and felt warm. Patient reports he felt pain in the region of erythema. Patient reports he was recently admitted and treated with IV antibiotics for the wound. He denies any trauma to the region. Denies any night sweats fevers or chills. States there are some blisters on the wound the same improved since his last admission. Patient reports the pain is particularly exacerbated with ambulation and palpation to the region. - Related Data Home Medications Medication Instructions Recorded Confirmed Atenolol/Chlorthalidone 1 tab PO DAILY 09/13/17 04/12/20 [Atenolol-Chlorthalidone 50-25] Canagliflozin [Invokana] 300 mg PO DAILY 09/13/17 04/12/20 Enalapril Maleate [Vasotec] 20 mg PO BID 09/13/17 04/12/20 Multivitamin/Iron/Folic Acid 1 tab PO HS 09/13/17 04/12/20 [Centrum Complete Multivit Tab] Ubidecarenone [Co Q-10] 100 mg PO DAILY 09/13/17 04/12/20 glipiZIDE XL [Glucotrol XL] 10 mg PO BID 09/13/17 04/12/20 metFORMIN HCL ER [Glucophage Xr] 1,000 mg PO BID 09/14/17 04/12/20 Insulin Aspart [NovoLOG Flexpen] See Protocol SQ TID-W/MEALS 10/06/18 04/12/20 Insulin Glargine,Hum.rec.anlog 60 units SQ BID 10/06/18 04/12/20 [Daxa Cuevas] Aspirin EC [Ecotrin Low Dose] 81 mg PO HS 04/12/20 04/12/20 Calcium Acetate-Aluminum Sulf 1 packet TOPICAL BID 04/12/20 04/12/20 [[place]omeboro Packet] Clobetasol Propionate [Temovate 1 applic TOPICAL BID 04/12/20 04/12/20 0.05% Oint] Hydrocortisone Oint 1 applic TOPICAL BID 04/12/20 04/12/20 [Hydrocortisone 2.5% Oint] Rosuvastatin [Crestor] 20 mg PO HS 04/12/20 04/12/20 Previous Rx's Medication Instructions Recorded Cephalexin [Keflex] 500 mg PO Q6HR #40 cap 04/15/20 Allergies Allergy/AdvReac Type Severity Reaction Status Date / Time No Known Allergies Allergy Verified 05/20/20 20:01 Review of Systems ROS Statement: Those systems with pertinent positive or pertinent negative responses have been documented in the HPI. ROS Other: All systems not noted in ROS Statement are negative. Past Medical History Past Medical History: Diabetes Mellitus, Hyperlipidemia, Hypertension History of Any Multi-Drug Resistant Organisms: None Reported Past Surgical History: Appendectomy, Orthopedic Surgery Past Anesthesia/Blood Transfusion Reactions: No Reported Reaction Past Psychological History: No Psychological Hx Reported Smoking Status: Never smoker Past Alcohol Use History: Rare Past Drug Use History: None Reported - Past Family History Father Family Medical History: Cancer Brother(s) Family Medical History: Cancer General Exam Limitations: no limitations General appearance: alert, in no apparent distress, obese (Morbid) Head exam: Present: atraumatic, normocephalic, normal inspection Eye exam: Present: normal appearance, PERRL, EOMI Pupils: Present: normal accommodation ENT exam: Present: normal exam, normal oropharynx, mucous membranes moist Neck exam: Present: normal inspection, full ROM. Absent: tenderness Respiratory exam: Present: normal lung sounds bilaterally. Absent: respiratory distress, wheezes, rales Cardiovascular Exam: Present: regular rate, normal rhythm, normal heart sounds Extremities exam: Present: full ROM, tenderness (Tenderness at the site of infection), normal capillary refill, other (+2 dorsalis pedis. Unable to detect posterior tibialis. Patient reports his feet are slightly discolored at baseline.). Absent: normal inspection (Very mild stasis dermatitis noted on the posterior aspect of bilateral lower extremities. Overlying cellulitic skin changes noted on the anterior aspect of the left lower leg measuring approx imately 20 cm 15 cm. Bullae information on top of the cellulitic region.) Back exam: Present: normal inspection, full ROM. Absent: tenderness Neurological exam: Present: alert, oriented X3 Psychiatric exam: Present: normal affect, normal mood Skin exam: Present: warm, dry, intact, normal color Course Vital Signs 05/20/20 19:52 Temperature 98.4 F Pulse Rate 89 Respiratory 18 Rate Blood Pressure 165/90 O2 Sat by Pulse 92 L Oximetry Medical Decision Making - Medical Decision Making Patient is 70-year-old male with history of diabetes, morbid obesity, chronic wounds presenting to emergency with chief complaint of infection. Exam patient does have overlies a lytic skin changes on his chronic wound on the anterior aspect of the left lower extremity. It appears to be infected with feeling warm and erythematous. It is tender to palpation. X-ray reveals some subcutaneous edema but otherwise no other acute findings. CBC reveals no leukocytosis. CMP is unremarkable. Patient was started on fluids and antibiotics. Patient is concerned with infection considering he has been previously admitted with the exact infection. Clinically, the wound does appear to be infected. Patient will be admitted for further medical management. Case discussed with Admitting physician is Dr.Khan AMIN consulted - Lab Data Result diagrams: 05/20/20 20:45 05/20/20 20:45 Lab Results 05/20/20 05/20/20 05/20/20 Range/Units 20:45 20:45 20:45 WBC 9.9 (3.8-10.6) k/uL RBC 5.25 (4.30-5.90) m/uL Hgb 15.1 (13.0-17.5) gm/dL Hct 45.7 (39.0-53.0) % MCV 87.1 (80.0-100.0) fL MCH 28.8 (25.0-35.0) pg MCHC 33.1 (31.0-37.0) g/dL RDW 14.8 (11.5-15.5) % Plt Count 247 (150-450) k/uL Neutrophils % 77 % Lymphocytes % 11 % Monocytes % 6 % Eosinophils % 4 % Basophils % 1 % Neutrophils # 7.6 (1.3-7.7) k/uL Lymphocytes # 1.1 (1.0-4.8) k/uL Monocytes # 0.6 (0-1.0) k/uL Eosinophils # 0.4 (0-0.7) k/uL Basophils # 0.1 (0-0.2) k/uL Sodium 137 (137-145) mmol/L Potassium 4.0 (3.5-5.1) mmol/L Chloride 104 (98-107) mmol/L Carbon Dioxide 24 (22-30) mmol/L Anion Gap 9 mmol/L BUN 35 H (9-20) mg/dL Creatinine 0.94 (0.66-1.25) mg/dL Est GFR (CKD-EPI)AfAm >90 (>60 ml/min/1.73 sqM) Est GFR (CKD-EPI)NonAf 83 (>60 ml/min/1.73 sqM) Glucose 165 H (74-99) mg/dL Plasma Lactic Acid Salomon 1.2 (0.7-2.0) mmol/L Calcium 9.5 (8.4-10.2) mg/dL Total Bilirubin 0.8 (0.2-1.3) mg/dL AST 20 (17-59) U/L ALT 18 (4-49) U/L Alkaline Phosphatase 61 (38-126) U/L Total Protein 7.1 (6.3-8.2) g/dL Albumin 4.1 (3.5-5.0) g/dL Disposition Clinical Impression: Cellulitis of leg, left Disposition: ADMITTED IP TO THIS HOSP Condition: Stable Additional Instructions: Patient will be admitted Is patient prescribed a controlled substance at d/c from ED?: No Referrals: Darren Juarez DO [Primary Care Provider] - 1-2 days Time of Disposition: 22:40
[2020-05-20 21:04] LABS: Basophils # (A) 0.1 k/uL (0-0.2); Basophils % (A) 1 %; Eosinophils # (A) 0.4 k/uL (0-0.7); Eosinophils % (A) 4 %; HCT 45.7 % (39.0-53.0); HGB 15.1 gm/dL (13.0-17.5); Lymphocytes # (A) 1.1 k/uL (1.0-4.8); Lymphocytes % (A) 11 %; MCH 28.8 pg (25.0-35.0); MCHC 33.1 g/dL (31.0-37.0); MCV 87.1 fL (80.0-100.0); Mean Platelet Volume 7.4; Monocytes # (A) 0.6 k/uL (0-1.0); Monocytes % (A) 6 %; Neutrophils # (A) 7.6 k/uL (1.3-7.7); Neutrophils % (A) 77 %; Platelet Count 247 k/uL (150-450); RBC 5.25 m/uL (4.30-5.90); RDW 14.8 % (11.5-15.5); WBC 9.9 k/uL (3.8-10.6)
[2020-05-20 21:20] LABS: ALT 18 U/L (4-49); AST 20 U/L (17-59); African American GFR (CKD) >90 (>60 ml/min/1.73 sqM); Albumin 4.1 g/dL (3.5-5.0); Alkaline Phosphatase 61 U/L (38-126); Anion Gap 9 mmol/L; Blood Urea Nitrogen 35 mg/dL (9-20); Calcium 9.5 mg/dL (8.4-10.2); Carbon Dioxide 24 mmol/L (22-30); Chloride 104 mmol/L (98-107); Glucose 165 mg/dL (74-99); Non-African American GFR(CKD) 83 (>60 ml/min/1.73 sqM); Sodium 137 mmol/L (137-145); Total Bilirubin 0.8 mg/dL (0.2-1.3); Total Protein 7.1 g/dL (6.3-8.2)
[2020-05-20] MEDS ORDERED: HYDROmorphone 1 MG/ML 1 ML SYRINGE IVP STA (21:33)
--- NOTE | 2020-05-20 21:44 | XR ---
EXAMINATION TYPE: XR tibia fibula LT DATE OF EXAM: 05/20/2020 COMPARISON: 04/12/2020 HISTORY: Redness and swelling TECHNIQUE: 3 views FINDINGS: There is subcutaneous edema around the lower leg. There is left knee prosthesis. I see no f racture nor dislocation. There is no evidence of focal bone destruction. Ankle mortise is anatomic. IMPRESSION: Subcutaneous edema similar to old exam. No fracture. No sign of osteomyelitis.
[2020-05-20] MEDS ORDERED: ACETAMINOPHEN TAB 325 MG TAB PO PRN (22:18)
[2020-05-20] MEDS ORDERED: NALOXONE 0.4 MG/ML 1 ML VIAL IV PRN (22:18)
[2020-05-20] MEDS ORDERED: HYDROmorphone 0.5 MG/0.5 ML SYRINGE IVP PRN (22:18)
[2020-05-20] MEDS ORDERED: LORazepam 2 MG/ML INJ IV PRN (22:18)
[2020-05-20] MEDS ORDERED: ONDANSETRON 4 MG/2 ML VIAL IVP PRN (22:18)
[2020-05-20] MEDS ORDERED: HYDROmorphone 1 MG/ML 1 ML SYRINGE IVP PRN (22:18)
[2020-05-20] MEDS: SODIUM CHLORIDE 0.9% 1,000 ML IV SCH (23:50)
[2020-05-21 00:57] LABS: Glucose,Whole Blood 103 mg/dL (75-99)
[2020-05-21 06:12] LABS: Glucose,Whole Blood 115 mg/dL (75-99)
[2020-05-21] MEDS ORDERED: VANCOMYCIN IV PER PHARMACY 1 EACH MISC MISCELLANE PRN (10:15)
[2020-05-21] MEDS ORDERED: VANCOMYCIN 2,500 MG in SODIUM CHLORIDE 0.9% 500 ML 500 ML IVPB SCH (11:00)
[2020-05-21] MEDS: lisinopriL 20 MG TAB PO SCH ×2 (11:19→20:12)
[2020-05-21] MEDS: atenoloL 50 MG TAB PO SCH (11:19)
[2020-05-21] MEDS: CALCIUM ACETATE-ALUMINUM SULF 1 EACH PACKET TOPICAL SCH (11:19)
[2020-05-21] MEDS: CHLORTHALIDONE 25 MG TAB PO SCH (11:19)
[2020-05-21] MEDS: PIPERACILLIN-TAZOBACTAM 3.375 GM in SODIUM CHLORIDE 0.9% 100 ML IVPB SCH ×2 (11:20→17:06)
[2020-05-21] MEDS: SODIUM CHLORIDE 0.9% 1,000 ML IV SCH (11:22)
[2020-05-21 11:30] LABS: Glucose,Whole Blood 167 mg/dL (75-99)
--- NOTE | 2020-05-21 16:17 | P.HPIM ---
History of Present Illness H&P Date: 05/21/20 Chief Complaint: Redness left lower extremity 70-year-old male morbidly obese, diabetic, chronic wound presenting to the emergency department with chief complaint of an infection. Patient states that he was watching TV about 5 hours prior to arrival and felt sudden discomfort in his infected wound on the left lower leg. States he examined the wound and noticed it was more erythematous than usual and felt warm. Patient reports he felt pain in the region of erythema. Patient reports he was recently admitted and treated with IV antibiotics for the wound. He denies any trauma to the region. Denies any night sweats fevers or chills. States there are some blisters on the wound the same improved since his last admission. Patient reports the pain is particularly exacerbated with ambulation and palpation to the region. Patient does have chronic wounds with worsening of the wound of the left lower extremity which appears markedly elevated at the meatus and inflamed; x-ray was done which revealed subcutaneous edema; CBC and serum BMP is within normal limits; patient is admitted to the hospital for further IV antibiotic treatment and evaluation by ID Review of Systems REVIEW OF SYSTEMS: CONSTITUTIONAL: No fever, no malaise, no fatigue. HEENT: No recent visual problems or hearing problems. Denied any sore throat. CARDIOVASCULAR: No chest pain, orthopnea, PND, no palpitations, no syncope. PULMONARY: No shortness of breath, no cough, no hemoptysis. GASTROINTESTINAL: No diarrhea, no nausea, no vomiting, no abdominal pain. NEUROLOGICAL: No headaches, no weakness, no numbness. HEMATOLOGICAL: Denies any bleeding or petechiae. GENITOURINARY: Denies any burning micturition, frequency, or urgency. MUSCULOSKELETAL/RHEUMATOLOGICAL: Denies any joint pain, swelling, or any muscle pain. ENDOCRINE: Denies any polyuria or polydipsia. The rest of the 14-point review of systems is negative. Past Medical History Past Medical History: Diabetes Mellitus, Hyperlipidemia, Hypertension, Sleep Apnea/CPAP/BIPAP History of Any Multi-Drug Resistant Organisms: None Reported Past Surgical History: Appendectomy, Orthopedic Surgery Past Anesthesia/Blood Transfusion Reactions: No Reported Reaction Past Psychological History: No Psychological Hx Reported Smoking Status: Never smoker Past Alcohol Use History: Rare Past Drug Use History: None Reported - Past Family History Father Family Medical History: Cancer Brother(s) Family Medical History: Cancer Medications and Allergies Home Medications Medication Instructions Recorded Confirmed Type Atenolol/Chlorthalidone 1 tab PO DAILY 09/13/17 05/21/20 History [Atenolol-Chlorthalidone 50-25] Canagliflozin [Invokana] 300 mg PO DAILY 09/13/17 05/21/20 History Enalapril Maleate [Vasotec] 20 mg PO BID 09/13/17 05/21/20 History Multivitamin/Iron/Folic Acid 1 tab PO HS 09/13/17 05/21/20 History [Centrum Complete Multivit Tab] Ubidecarenone [Co Q-10] 100 mg PO DAILY 09/13/17 05/21/20 History glipiZIDE XL [Glucotrol XL] 10 mg PO BID 09/13/17 05/21/20 History metFORMIN HCL ER [Glucophage Xr] 1,000 mg PO BID 09/14/17 05/21/20 History Insulin Aspart [NovoLOG Flexpen] See Protocol SQ TID-W/MEALS 10/06/18 05/21/20 History Insulin Glargine,Hum.rec.anlog 60 units SQ BID 10/06/18 05/21/20 History [[place] Solostar] Aspirin EC [Ecotrin Low Dose] 81 mg PO HS 04/12/20 05/21/20 History Calcium Acetate-Aluminum Sulf 1 packet TOPICAL DAILY 04/12/20 05/21/20 History [[place] Packet] Rosuvastatin [Crestor] 20 mg PO HS 04/12/20 05/21/20 History Ibuprofen [Motrin] 800 mg PO DAILY 05/20/20 05/21/20 History Allergies Allergy/AdvReac Type Severity Reaction Status Date / Time No Known Allergies Allergy Verified 05/21/20 00:19 Physical Exam Vitals: Vital Signs Temp Pulse Pulse Resp BP BP Pulse Ox 05/21/20 07:37 99.0 F 72 16 122/76 05/21/20 01:11 98.2 F 71 20 113/72 94 L 05/20/20 23:48 98.1 F 76 19 147/85 96 05/20/20 22:28 96 05/20/20 22:25 84 18 136/78 92 L 05/20/20 19:52 98.4 F 89 18 165/90 92 L Intake and Output 05/20/20 05/21/20 05/21/20 22:59 06:59 14:59 Other: Voiding Method Toilet Toilet # Voids 2 2 Weight 171.912 kg General appearance: alert, in no apparent distress, obese (Morbid) Head exam: Present: atraumatic, normocephalic, normal inspection Eye exam: Present: normal appearance, PERRL, EOMI Pupils: Present: normal accommodation ENT exam: Present: normal exam, normal oropharynx, mucous membranes moist Neck exam: Present: normal inspection, full ROM. Absent: tenderness Respiratory exam: Present: normal lung sounds bilaterally. Absent: respiratory distress, wheezes, rales Cardiovascular Exam: Present: regular rate, normal rhythm, normal heart sounds Extremities exam: Present: full ROM, tenderness (Tenderness at the site of infection), normal capillary refill, other (+2 dorsalis pedis. Unable to detect posterior tibialis. Patient reports his feet are slightly discolored at baseline.). Absent: normal inspection (Very mild stasis dermatitis noted on the posterior aspect of bilateral lower extremities. Overlying cellulitic skin changes noted on the anterior aspect of the left lower leg measuring ap proximately 20 cm 15 cm. Bullae information on top of the cellulitic region.) Results CBC & Chem 7: 05/20/20 20:45 05/20/20 20:45 Labs: Abnormal Lab Results - Last 24 Hours (Table) 05/20/20 05/21/20 05/21/20 Range/Units 20:45 00:55 06:11 BUN 35 H (9-20) mg/dL Glucose 165 H (74-99) mg/dL POC Glucose (mg/dL) 103 H 115 H (75-99) mg/dL Thrombosis Risk Factor Assmnt - Choose All That Apply Any of the Below Risk Factors Present?: Yes Each Factor Represents 1 point: Obesity (BMI >25), Swollen legs (current) Other Risk Factors: Yes Each Risk Factor Represents 2 Points: Age 61-74 years Other congenital or acquired thrombophilia - If yes, enter type in comment: No Thrombosis Risk Factor Assessment Total Risk Factor Score: 4 Thrombosis Risk Factor Assessment Level: Moderate Risk Assessment and Plan Assessment: 1. Cellulitis left lower extremity - Patient's left lower extremity is markedly inflamed and erythematous with significant soft tissue swelling; patient does have history of diabetes; patient is given IV Rocephin ED which we will discontinue and start patient on IV vancomycin and Zosyn; monitor CRP and pro-calcitonin levels; consult ID for further recommendations 2. Mild renal injury/dehydration; patient advised to increase oral fluid intake; we will monitor strict JOEL's, daily weights, renal function and electrolytes; avoid nephrotoxic and hypotensive agents; patient is restarted on home dose of chlorthalidone with close monitoring of renal function; recommending discontinuing chlorthalidone if B UN/creatinine worsens 2. Hyperglycemia; uncontrolled diabetes mellitus type 1; Levemir 60 mg subcu twice a day along with metformin thousand milligrams twice a day; hold glipizide while in the hospital 3. Hypertension; atenolol/hydrochlorothiazide 5025 milligrams daily; Vasotec 20 mg twice a day 4. Hyperlipidemia; continue with home statin therapy 5. Morbid obesity; counseling done on needed and benefits of weight reduction DVT prophylaxis; SCDs CODE STATUS; full code
[2020-05-21 16:37] LABS: Glucose,Whole Blood 168 mg/dL (75-99)
[2020-05-21] MEDS ORDERED: PIPERACILLIN-TAZOBACTAM 3.375 GM in SODIUM CHLORIDE 0.9% 100 ML IVPB SCH (18:00)
[2020-05-21 20:05] LABS: Glucose,Whole Blood 228 mg/dL (75-99)
[2020-05-21] MEDS: ASPIRIN 81 MG PO SCH (20:11)
[2020-05-21] MEDS: metFORMIN 500 MG TAB PO SCH (20:12)
[2020-05-21] MEDS: MULTIVITAMINS, THERA 1 EACH TAB PO SCH (20:14)
[2020-05-21] MEDS: ATORVASTATIN 40 MG TAB PO SCH (20:14)
[2020-05-21] MEDS: INSULIN DETEMIR (LEVEMIR) 100 UNIT/ML SYR SQ SCH (20:14)
--- NOTE | 2020-05-21 22:07 | P.CONS ---
History of Present Illness - Reason for Consult Consult date: 05/21/20 Left lower extremity cellulitis Requesting physician: Paulette Hope - Chief Complaint Left leg swelling and redness 1 day - History of Present Illness Patient is 70-year-old male with past medical history significant for chronic swelling lower extremity venous stasis ulcer and cellulitis in this patient presented to the hospital yesterday with a chief complaints of sudden onset of the left leg swelling and redness that progressively got worse within 5 hours, patient is complaining of diffuse swelling in his left leg he did have a pain which is sharp in the left leg with a density 6-7 out of 10 and no radiation, patient currently did have small blisters but didn't have any open wound or any drainage has been complaining of fever with chills the symptom the patient presented to hospital on arrival to the ER, the patient was afebrile did have a normal white count patient did have x-rays of the left tibia and fibula with tissue some soft tissue swelling but no bony changes patient was started on vancomycin has been treated with the hospital infectious disease was consulted for further management of antibiotic therapy Review of Systems Positive point has been mentioned in the HPI rest of the systems are negative Past Medical History Past Medical History: Diabetes Mellitus, Hyperlipidemia, Hypertension, Sleep Apnea/CPAP/BIPAP History of Any Multi-Drug Resistant Organisms: None Reported Past Surgical History: Appendectomy, Orthopedic Surgery Past Anesthesia/Blood Transfusion Reactions: No Reported Reaction Past Psychological History: No Psychological Hx Reported Smoking Status: Never smoker Past Alcohol Use History: Rare Past Drug Use History: None Reported - Past Family History Father Family Medical History: Cancer Brother(s) Family Medical History: Cancer Medications and Allergies Home Medications Medication Instructions Recorded Confirmed Type Atenolol/Chlorthalidone 1 tab PO DAILY 09/13/17 05/21/20 History [Atenolol-Chlorthalidone 50-25] Canagliflozin [Invokana] 300 mg PO DAILY 09/13/17 05/21/20 History Enalapril Maleate [Vasotec] 20 mg PO BID 09/13/17 05/21/20 History Multivitamin/Iron/Folic Acid 1 tab PO HS 09/13/17 05/21/20 History [Centrum Complete Multivit Tab] Ubidecarenone [Co Q-10] 100 mg PO DAILY 09/13/17 05/21/20 History glipiZIDE XL [Glucotrol XL] 10 mg PO BID 09/13/17 05/21/20 History metFORMIN HCL ER [Glucophage Xr] 1,000 mg PO BID 09/14/17 05/21/20 History Insulin Aspart [NovoLOG Flexpen] See Protocol SQ TID-W/MEALS 10/06/18 05/21/20 History Insulin Glargine,Hum.rec.anlog 60 units SQ BID 10/06/18 05/21/20 History [T[place]arah Solostar] Aspirin EC [Ecotrin Low Dose] 81 mg PO HS 04/12/20 05/21/20 History Calcium Acetate-Aluminum Sulf 1 packet TOPICAL DAILY 04/12/20 05/21/20 History [[place] Packet] Rosuvastatin [Crestor] 20 mg PO HS 04/12/20 05/21/20 History Ibuprofen [Motrin] 800 mg PO DAILY 05/20/20 05/21/20 History Allergies Allergy/AdvReac Type Severity Reaction Status Date / Time No Known Allergies Allergy Verified 05/21/20 00:19 Physical Exam Vitals: Vital Signs Temp Pulse Pulse Resp BP BP Pulse Ox 05/21/20 14:40 98.6 F 72 16 131/71 95 05/21/20 07:37 99.0 F 72 16 122/76 05/21/20 01:11 98.2 F 71 20 113/72 94 L 05/20/20 23:48 98.1 F 76 19 147/85 96 05/20/20 22:28 96 05/20/20 22:25 84 18 136/78 92 L 05/20/20 19:52 98.4 F 89 18 165/90 92 L Intake and Output 05/21/20 05/21/20 05/21/20 06:59 14:59 22:59 Other: Voiding Method Toilet Toilet # Voids 2 1 GENERAL DESCRIPTION: An elderly male lying in bed, no distress. No tachypnea or accessory muscle of respiration use. HEENT: Shows Pallor , no scleral icterus. Oral mucous membrane is dry. No pharyngeal erythema or thrush NECK: Trachea central, no thyromegaly. LUNGS: Unlabored breathing. Clear to auscultation anteriorly. No wheeze or crackle. HEART: S1, S2, regular rate and rhythm. No loud murmur ABDOMEN: Soft, no tenderness , guarding or rigidity, no organomegaly EXTREMITIES: Diffuse swelling to the left leg with erythema warmth to touch no drainage SKIN: No rash, no masses palpable. NEUROLOGICAL: The patient is awake, alert, oriented x3, mood and affect normal. Results CBC & Chem 7: 05/20/20 20:45 05/20/20 20:45 Labs: Abnormal Lab Results - Last 24 Hours (Table) 05/20/20 05/21/20 05/21/20 Range/Units 20:45 00:55 06:11 BUN 35 H (9-20) mg/dL Glucose 165 H (74-99) mg/dL POC Glucose (mg/dL) 103 H 115 H (75-99) mg/dL 05/21/20 05/21/20 Range/Units 11:26 16:31 BUN (9-20) mg/dL Glucose (74-99) mg/dL POC Glucose (mg/dL) 167 H 168 H (75-99) mg/dL Assessment and Plan Assessment: 1-patient presented to hospital with acute left lower extremity swelling and redness in this patient who did have diffuse swelling redness and rapid progression likely pointing towards streptococcal cellulitis with no evidence of any abscess or deep collection (1) Left leg cellulitis Current Visit: Yes Status: Acute Code(s): L03.116 - CELLULITIS OF LEFT LOWER LIMB SNOMED Code(s): 264480290 Plan: 1-discontinue vancomycin 2-start the patient cefazolin 2 g every 8 hours 3-marked the area of the redness 4-Bernardino wrap to the leg from just above the toe to below the knee We will follow on clinical condition and cultures to further adjust medication if needed Thank you for this consultation will follow this patient with you
[2020-05-22] MEDS: SODIUM CHLORIDE 0.9% 1,000 ML IV SCH ×3 (01:29→22:40)
[2020-05-22 05:57] LABS: Basophils % (A) 0 %; Eosinophils # (A) 0.3 k/uL (0-0.7); Eosinophils % (A) 3 %; HCT 43.1 % (39.0-53.0); Lymphocytes # (A) 0.8 k/uL (1.0-4.8); Lymphocytes % (A) 10 %; MCHC 32.4 g/dL (31.0-37.0); MCV 89.3 fL (80.0-100.0); Mean Platelet Volume 7.5; Monocytes # (A) 0.7 k/uL (0-1.0); Monocytes % (A) 8 %; Neutrophils # (A) 6.4 k/uL (1.3-7.7); Neutrophils % (A) 76 %; Platelet Count 196 k/uL (150-450); RBC 4.83 m/uL (4.30-5.90); WBC 8.4 k/uL (3.8-10.6)
[2020-05-22 06:10] LABS: African American GFR (CKD) >90 (>60 ml/min/1.73 sqM); Anion Gap 8 mmol/L; Blood Urea Nitrogen 29 mg/dL (9-20); Carbon Dioxide 29 mmol/L (22-30); Chloride 103 mmol/L (98-107); Glucose 167 mg/dL (74-99); Non-African American GFR(CKD) 88 (>60 ml/min/1.73 sqM); Sodium 140 mmol/L (137-145)
[2020-05-22 06:14] LABS: Glucose,Whole Blood 158 mg/dL (75-99)
[2020-05-22] MEDS: INSULIN DETEMIR (LEVEMIR) 100 UNIT/ML SYR SQ SCH ×2 (08:14→22:45)
[2020-05-22] MEDS: atenoloL 50 MG TAB PO SCH (08:15)
[2020-05-22] MEDS: CALCIUM ACETATE-ALUMINUM SULF 1 EACH PACKET TOPICAL SCH (08:15)
[2020-05-22] MEDS: CHLORTHALIDONE 25 MG TAB PO SCH (08:15)
[2020-05-22] MEDS: metFORMIN 500 MG TAB PO SCH ×2 (08:15→22:44)
[2020-05-22] MEDS: lisinopriL 20 MG TAB PO SCH ×2 (08:15→22:45)
[2020-05-22] MEDS: CANAGLIFLOZIN 300 MG PO SCH (08:16)
[2020-05-22 11:43] LABS: Glucose,Whole Blood 142 mg/dL (75-99)
[2020-05-22] MEDS ORDERED: ALPRAZolam 0.25 MG TAB PO PRN (15:15)
--- NOTE | 2020-05-22 16:04 | PN ---
PROGRESS NOTE DATE OF SERVICE: This is 05/22/2020 This 65-year-old gentleman was admitted with significant cellulitis, also had renal failure, possibly prerenal acute renal failure. With hydration the creatinine is improved. Blood sugar is elevated. The patient is on IV antibiotics. Local dressing has been done. The patient is extremely obese with body mass index of 53.6. PAST MEDICAL HISTORY: Reviewed. REVIEW OF SYSTEMS: CARDIOVASCULAR No angina or palpitations. RESPIRATORY As mentioned earlier. GI No nausea, vomiting, or diarrhea. No dysuria or hematuria. NERVOUS No numbness or weakness. CURRENT MEDICATIONS: Reviewed and include Tylenol p.r.n., aspirin, Tenormin, Lipitor, cefazolin 2 g IV q8, Dilaudid, Levemir, Zestril, Ativan, Glucophage, Narcan, Zofran. PHYSICAL EXAMINATION: Alert and oriented x3. Pulse 80, blood pressure 143/82, respiration 16, temperature 97.7, pulse ox 98% on room air. HEENT: Conjunctivae normal. Oral mucosa moist. NECK: No jugular venous distention. No lymph node enlargement. CARDIOVASCULAR: S1, S2, muffled. No S3, no S4, RESPIRATORY: Diminished breath sounds at the bases. A few scattered rhonchi. ABDOMEN: Soft, obese, nontender. No mass palpable. Minimal erythema present. LEGS: ( ) erythema and cellulitis of the left leg. NERVOUS SYSTEM: No focal deficits. LAB STUDIES: CBC within normal limits. BUN is 29, creatinine 0.8 and glucose noted. ASSESSMENT: 1. Acute severe cellulitis of the left lower extremity, on IV antibiotics. 2. Mild acute renal failure with acute tubular necrosis. 3. Hyperglycemia. 4. Hypertension. 5. Hyperlipidemia. 6. Super morbid obesity with body mass index of 53.6. 7. Sleep apnea. 8. History of degenerative joint disease. 9. FULL CODE. RECOMMENDATIONS AND DISCUSSION: In this 70-year-old gentleman who presented with multiple complex medical issues, we will monitor the patient closely, continue local dressing. Monitor blood sugars closely. Patient is on Levemir 60 units b.i.d. Otherwise, continue with metformin, cautious hydration, repeat labs in the morning. Guarded prognosis because of multiple complex medical issues. Further recommendations to follow. MMODL / IJN: [id number] /
[2020-05-22 16:40] LABS: Glucose,Whole Blood 229 mg/dL (75-99)
[2020-05-22 20:35] LABS: Glucose,Whole Blood 296 mg/dL (75-99)
[2020-05-22] MEDS: ATORVASTATIN 40 MG TAB PO SCH (22:44)
[2020-05-22] MEDS: HEPARIN SODIUM,PORCINE 5,000 UNIT/ML 1 ML VIAL SQ SCH (22:45)
[2020-05-22] MEDS: MULTIVITAMINS, THERA 1 EACH TAB PO SCH (22:45)
[2020-05-22] MEDS: ASPIRIN 81 MG PO SCH (22:45)
--- NOTE | 2020-05-23 04:27 | PN ---
PROGRESS NOTE DATE OF SERVICE: 05/22/2020 REASON FOR FOLLOWUP: Left lower extremity cellulitis. INTERVAL HISTORY: The patient is currently afebrile, has been breathing comfortably. The patient denies having any chest pain or shortness of breath or cough. No nausea, no vomiting. No abdominal pain. Overall pain and swelling to the left foot have decreased. PHYSICAL EXAMINATION: Blood pressure is 154/74 with a pulse of 77, temperature 98.1. He is 92% on room air. General description is an elderly male, lying in bed in no distress. RESPIRATORY SYSTEM: Unlabored breathing, clear to auscultation anteriorly. HEART: S1, S2. Regular rate and rhythm. ABDOMEN: Soft, no tenderness. Left lower extremity swelling has slightly decreased. LABS: Hemoglobin is 14, white count 8.4, BUN of 29, creatinine 0.89. Blood culture has been negative. DIAGNOSTIC IMPRESSION AND PLAN: Patient with acute left lower extremity cellulitis with diffuse swelling and redness likely streptococcal disease. Patient clinically responding to the cefazolin to continue along with Bernardino wrap. We will evaluate the leg tomorrow. Continue with supportive care. Family at the bedside. Questions were answered. MMODL / IJN: [id number] /
[2020-05-23 06:23] LABS: Basophils # (A) 0.1 k/uL (0-0.2); Basophils % (A) 1 %; Eosinophils # (A) 0.2 k/uL (0-0.7); Eosinophils % (A) 3 %; HGB 14.8 gm/dL (13.0-17.5); Lymphocytes % (A) 15 %; MCH 28.3 pg (25.0-35.0); MCHC 31.6 g/dL (31.0-37.0); MCV 89.7 fL (80.0-100.0); Mean Platelet Volume 7.7; Monocytes # (A) 0.6 k/uL (0-1.0); Monocytes % (A) 8 %; Neutrophils # (A) 4.8 k/uL (1.3-7.7); Neutrophils % (A) 69 %; Platelet Count 222 k/uL (150-450); RBC 5.23 m/uL (4.30-5.90); RDW 14.8 % (11.5-15.5)
[2020-05-23 06:25] LABS: Glucose,Whole Blood 154 mg/dL (75-99)
[2020-05-23 06:50] LABS: African American GFR (CKD) >90 (>60 ml/min/1.73 sqM); Anion Gap 9 mmol/L; Blood Urea Nitrogen 23 mg/dL (9-20); Calcium 9.2 mg/dL (8.4-10.2); Carbon Dioxide 24 mmol/L (22-30); Chloride 107 mmol/L (98-107); Glucose 159 mg/dL (74-99); Non-African American GFR(CKD) >90 (>60 ml/min/1.73 sqM); Potassium 4.3 mmol/L (3.5-5.1); Sodium 140 mmol/L (137-145)
[2020-05-23] MEDS ORDERED: PANTOPRAZOLE 40 MG TABLET PO SCH (07:30)
[2020-05-23 08:38] VITALS: RESP 16
[2020-05-23] MEDS: atenoloL 50 MG TAB PO SCH (08:39)
[2020-05-23] MEDS: CALCIUM ACETATE-ALUMINUM SULF 1 EACH PACKET TOPICAL SCH (08:39)
[2020-05-23] MEDS: metFORMIN 500 MG TAB PO SCH (08:39)
[2020-05-23] MEDS: CHLORTHALIDONE 25 MG TAB PO SCH (08:39)
[2020-05-23] MEDS: CANAGLIFLOZIN 300 MG PO SCH (08:39)
[2020-05-23] MEDS: lisinopriL 20 MG TAB PO SCH (08:39)
[2020-05-23] MEDS: HEPARIN SODIUM,PORCINE 5,000 UNIT/ML 1 ML VIAL SQ SCH (08:40)
[2020-05-23] MEDS: INSULIN DETEMIR (LEVEMIR) 100 UNIT/ML SYR SQ SCH (08:40)
--- NOTE | 2020-05-23 10:37 | P.DS ---
Providers Date of admission: 05/23/20 06:36 Expected date of discharge: 05/23/20 Attending physician: Debbie Hope Consults: 05/20/20 22:40 Consult Physician Stat Consulting Provider: Piedad Nieves Consult Reason/Comments: Cellulitis on the leg Do you want consulting provider notified?: Yes Primary care physician: Darren Juarez Hospital Course: Final Diagnoses: Acute left lower extremity cellulitis, failed outpatient treatment ,suspect streptococcal disease Mild dehydration Mild acute renal failure secondary to the above, resolved with IV fluid hydration Diabetes mellitus, hyperglycemia, improving Hypertension Hyperlipidemia Morbid obesity, BMI 53.6 Hospital course: This a 70-year-old gentleman admitted with acute left lower extremity cellulitis, failed outpatient treatment. Evaluated by infectious disease. Maintained on local wound care, IV cefazolin with significant clinical improvement. Patient is discharged home today in a stable condition with car prognosis pending final DC recommendations and clearance from infectious disease. Microbiology 05/20/20 20:45 Blood Blood Culture - Preliminary No Growth after 48 hours The impression and plan of care has been dictated as directed. Dr.: I performed a history and examination of this patient, discussed the same with the dictator. I agree with the dictator's note ,documented as a scribe. Any additional findings or plans will be noted. Patient Condition at Discharge: Stable Plan - Discharge Summary Discharge Rx Participant: No New Discharge Prescriptions: New Pantoprazole [Protonix] 40 mg PO AC-BRKFST #14 tablet. Acetaminophen Tab [Tylenol] 650 mg PO Q6HR PRN tab PRN Reason: Mild Pain Or Fever > 100.5 Continue glipiZIDE XL [Glucotrol XL] 10 mg PO BID Enalapril Maleate [Vasotec] 20 mg PO BID Ubidecarenone [Co Q-10] 100 mg PO DAILY Multivitamin/Iron/Folic Acid [Centrum Complete Multivit Tab] 1 tab PO HS Canagliflozin [Invokana] 300 mg PO DAILY Atenolol/Chlorthalidone [Atenolol-Chlorthalidone 50-25] 1 tab PO DAILY metFORMIN HCL ER [Glucophage Xr] 1,000 mg PO BID Insulin Aspart [NovoLOG Flexpen] See Protocol SQ TID-W/MEALS Insulin Glargine,Hum.rec.anlog [[place] Solostar] 60 units SQ BID Aspirin EC [Ecotrin Low Dose] 81 mg PO HS Rosuvastatin [Crestor] 20 mg PO HS Calcium Acetate-Aluminum Sulf [[place] Packet] 1 packet TOPICAL DAILY Ibuprofen [Motrin] 800 mg PO DAILY Discharge Medication List Atenolol/Chlorthalidone [Atenolol-Chlorthalidone 50-25] 1 tab PO DAILY 09/13/17 [History] Canagliflozin [Invokana] 300 mg PO DAILY 09/13/17 [History] Enalapril Maleate [Vasotec] 20 mg PO BID 09/13/17 [History] Multivitamin/Iron/Folic Acid [Centrum Complete Multivit Tab] 1 tab PO HS 09/13/17 [History] Ubidecarenone [Co Q-10] 100 mg PO DAILY 09/13/17 [History] glipiZIDE XL [Glucotrol XL] 10 mg PO BID 09/13/17 [History] metFORMIN HCL ER [Glucophage Xr] 1,000 mg PO BID 09/14/17 [History] Insulin Aspart [NovoLOG Flexpen] See Protocol SQ TID-W/MEALS 10/06/18 [History] Insulin Glargine,Hum.rec.anlog [[place] Solostar] 60 units SQ BID 10/06/18 [History] Aspirin EC [Ecotrin Low Dose] 81 mg PO HS 04/12/20 [History] Calcium Acetate-Aluminum Sulf [[place] Packet] 1 packet TOPICAL DAILY 04/12/20 [History] Rosuvastatin [Crestor] 20 mg PO HS 04/12/20 [History] Ibuprofen [Motrin] 800 mg PO DAILY 05/20/20 [History] Acetaminophen Tab [Tylenol] 650 mg PO Q6HR PRN tab 05/23/20 [Rx] Pantoprazole [Protonix] 40 mg PO AC-BRKFST #14 tablet. 05/23/20 [Rx] Follow up Appointment(s)/Referral(s): Darren Juarez DO [Primary Care Provider] - 3 Days Ambulatory/Diagnostic Orders: Complete Blood Count w/diff [LAB.AMB] Time Frame: 3 Days, Location: None Selected Activity/Diet/Wound Care/Special Instructions: Wound care, DC antibiotics/final DC recommendations and clearance as per ID
[2020-05-23 11:40] LABS: Glucose,Whole Blood 151 mg/dL (75-99)
--- NOTE | 2020-05-23 14:12 | PN ---
PROGRESS NOTE DATE OF SERVICE: 05/23/2020 REASON FOR FOLLOWUP: Left lower extremity cellulitis. INTERVAL HISTORY: Patient is currently afebrile. The patient is breathing comfortably. Patient denies having any chest pain or shortness of breath or cough. No nausea, no vomiting, no abdominal pain. Overall pain and discomfort to the left leg has improved. PHYSICAL EXAMINATION: Blood pressure 154/82 with a pulse of 78, temperature 97.5. He is 92% on room air. General description is an elderly male up in the bed in no distress. RESPIRATORY SYSTEM: Unlabored breathing, clear to auscultation anteriorly. HEART: S1, S2. Regular rate and rhythm. ABDOMEN: Soft, no tenderness. Left leg swelling and redness have decreased. LABS: Hemoglobin is 41, white count 7.9, BUN of 23, creatinine 0.72. Blood culture negative. DIAGNOSTIC IMPRESSION AND PLAN: Patient with acute left lower extremity cellulitis in this patient did have diffuse swelling and redness, likely streptococcal disease, clinically responding to the cefazolin. Plan is to finish therapy with oral Keflex 500 mg p.o. q.6 hours for 10 days, prescription sent to the pharmacy. MMRAMANDEEPL / WILEYN: [id number] /
[2020-05-23 15:13] VITALS: BP 147/77; PULSE 72; TEMP 97.2
[2020-05-23 16:42] LABS: Glucose,Whole Blood 191 mg/dL (75-99)
[2020-05-23] MEDS: SODIUM CHLORIDE 0.9% 1,000 ML IV SCH (18:07)
--- NOTE | 2020-05-23 18:10 | US ---
EXAMINATION TYPE: US venous doppler duplex LE LT DATE OF EXAM: 05/23/2020 3:40 PM COMPARISON: Venous ultrasound left lower extremity 12/08/2012. CLINICAL HISTORY: Erythema, warmth. Concern for DVT. SIDE PERFORMED: Left TECHNIQUE: The lower extremity deep venous system is examined utilizing real time linear array sonog selene with graded compression, doppler sonography and color-flow sonography. VESSELS IMAGED: External Iliac Vein (EIV) Common Femoral Vein Deep Femoral Vein Greater Saphenous Vein * Femoral Vein Popliteal Vein Small Saphenous Vein * Proximal Calf Veins (* superficial vessels) Left Leg: Negative for DVT. There is normal flow, compressibility, vascular waveforms. IMPRESSION: No deep venous thrombosis of the left lower extremity.
--- NOTE | 2020-05-25 23:23 | CDI ---
Documentation Clarification Form Date: 05/26/2020 From: Theo Phan Phone: If you have a question about this query, please contact Josee Melendez Substation Operator at [phone] between 8am and 5pm. Admit Date: 05/23/2020 Discharge Date: 05/23/2020 Patient Name: Gamaliel Baez Visit Number: [id number] ATTENTION: The Clinical Documentation Specialists (CDI) and [facility] Coding Staff appreciate your assistance in clarifying documentation. Please respond to the clarification below the line at the bottom and electronically sign. The CDI & [facility] Coding staff will review the response and follow-up if needed. Please note: Queries are made part of the Legal Health Record. If you have any questions, please contact the author of this message via ITS. Dear Darren Foley DO., Your patient has the documented diagnosis of Cellulitis of left lower limb and DM Type 1 in your notes. A relationship between diagnoses cannot be assumed unless documented as such by the attending physician. In order to capture the severity of condition; please document the relationship, if any, between these diagnoses. History/Risk Factors: Obesity, BMI 57, Diabetes mellitus type 1 Clinical Indicators: Redness left lower extremity Treatment:IV cefazolin Please clarify and document your clinical opinion in the progress notes and discharge summary if any relationship (due to, caused by, secondary to) exists between these two diagnoses. Cellulitis Related to DM type 1 Cellulits not related to DM type 1 Other explanation of clinical findings (please specify) Cellulitis Related to DM type 2 not type 1 MTDD
--- NOTE | 2020-05-25 23:35 | CDI ---
Documentation Clarification Form Date: 05/26/2020 From: Theo Phan Phone: If you have a question about this query, please contact Josee Melendez, Insulation Inspector at [phone] between 8am and 5pm. Admit Date: 05/23/2020 Discharge Date: 05/23/2020 Patient Name: Gamaliel Baez Visit Number: [id number] ATTENTION: The Clinical Documentation Specialists (CDI) and [facility] Coding Staff appreciate your assistance in clarifying documentation. Please respond to the clarification below the line at the bottom and electronically sign. The CDI & [facility] Coding staff will review the response and follow-up if needed. Please note: Queries are made part of the Legal Health Record. If you have any questions, please contact the author of this message via ITS. Dear Dr Darren Juarez DO., The patient presented with the Cellulitis also found to have SMITHA. History/Risk Factors:Obesity, HYN, Hyperlipidemia Clinical Indicators: Mild renal injury/dehydration Lab findings: Creatitine 0.89, 0.72 Treatment:patient advised to increase oral fluid intake; we will monitor strict JOEL's, daily weights, renal function andelectrolytes; resolved with IV fluid 05/22 Dr. Abilio Middleton note mentioned as "Mild acute renal failure with acute tubular necrosis". In your professional opinion, can you please clarify the diagnosis? SMITHA ATN Other, please specify Unable to determine acute kidney injury MTDD
== END 2020-05-23 18:40 | disposition home or self-care (01) ==
LOC: EC 19:39 → 1SOBS 22:36 → OBSVTOIN 05-23 06:36 → INTOOBSV 05-23 06:36 → UNDODISIN 05-23 18:40
PROVIDERS: ADMIT Allergy & Immunology; ATTEND Allergy & Immunology
DX: E11.628 Type 2 diabetes mellitus with other skin complications (principal); L03.116 Cellulitis of left lower limb; E11.622 Type 2 diabetes mellitus with other skin ulcer; L97.929 Non-pressure chronic ulcer of unspecified part of left lower leg with unspecified severity; E86.0 Dehydration; N17.9 Acute kidney failure, unspecified; E11.65 Type 2 diabetes mellitus with hyperglycemia; I10 Essential (primary) hypertension; E78.5 Hyperlipidemia, unspecified; E66.01 Morbid (severe) obesity due to excess calories; E11.620 Type 2 diabetes mellitus with diabetic dermatitis; I87.2 Venous insufficiency (chronic) (peripheral); G47.30 Sleep apnea, unspecified; M19.90 Unspecified osteoarthritis, unspecified site; Z68.43 Body mass index [BMI] 50.0-59.9, adult; Z79.899 Other long term (current) drug therapy; Z79.4 Long term (current) use of insulin; Z79.82 Long term (current) use of aspirin; Z79.52 Long term (current) use of systemic steroids; Z90.49 Acquired absence of other specified parts of digestive tract; Z98.890 Other specified postprocedural states; Z99.89 Dependence on other enabling machines and devices; Z80.9 Family history of malignant neoplasm, unspecified
CPT/HCPCS: 96361 ×3; 96365; 96366 ×3; 96367; 96368; 96372 ×2; 96376; 96375; 99284; 36415; 80053; 80048 ×2; 83605; 85025 ×3; 87040; 84145; 73590; 93971; G0378 ×3; J2543; J3370; J1644 ×2; J0690 ×3; J0696; J1170 ×2; 96374

== ENCOUNTER → 2020-12-06 | Outpatient (CLI) | payer MEDICARE ==
[2020-12-06 11:46] LABS: African American GFR (CKD) 79.5 (60.0-200.0); Albumin 4.5 g/dL (3.80-4.90); Albumin/Globulin Ratio 1.96 (1.60-3.17); BUN/Creat Ratio 33.64 Ratio (12.00-20.00); Chol/HDL Ratio 3.86; Globulin 2.3 g/dL (1.6-3.3); Non-African American GFR(CKD) 68.6 (60.0-200.0); Potassium 4.7 mmol/L (3.5-5.5); Total Bilirubin 0.9 mg/dL (0.2-1.2); Total Protein 6.8 g/dL (6.2-8.2)
[2020-12-06 16:39] LABS: Hemoglobin A1C 8.7 % (4.0-6.0)
[2020-12-06 22:30] LABS: Urine Creatinine 133.2 mg/dL
== END | disposition home or self-care (01) ==
LOC: LABWHC1 07:04
PROVIDERS: ATTEND Internal Medicine Endocrinology, Diabetes & Metabolism
DX: E11.65 Type 2 diabetes mellitus with hyperglycemia (principal)
CPT/HCPCS: 36415; 80053; 80061; 82043; 82570; 83036; 84443

== ENCOUNTER → 2021-02-16 | Outpatient (CLI) | payer MEDICARE ==
--- NOTE | 2021-02-21 09:34 | P.ARTDOP ---
Arterial Doppler LOWER EXTREMITY ARTERIAL DOPPLER: DATE OF SERVICE: 02/16/2021 Reason for study: Suspected vascular disease. Doppler waveforms: Multiphasic bilaterally throughout. Pulse volume recording: []. Pressure gradients: None. Ankle-brachial indices: Greater than 1 bilaterally. Toe brachial indices: 0.65 on the right, 0.67 on the left Impression: Normal study.
== END | disposition home or self-care (01) ==
LOC: RADUSWWP 10:09
PROVIDERS: ATTEND Family Medicine
DX: I73.9 Peripheral vascular disease, unspecified (principal)
CPT/HCPCS: 93922

== ENCOUNTER → 2021-07-13 | Outpatient (CLI) | payer MEDICARE ==
--- NOTE | 2021-07-13 10:33 | CT ---
EXAMINATION TYPE: CT sinus wo con DATE OF EXAM: 07/13/2021 COMPARISON: None HISTORY: 71-year-old male J01.90, Acute sinusitis CT DLP: 619 mGycm Automated exposure control for dose reduction was used. TECHNIQUE: Noncontrast axial views of the paranasal sinuses were obtained. Coronal reconstructions pe rformed. FINDINGS: PARANASAL SINUSES: Moderate mucosal thickening left sphenoid sinus along with a 1.0 cm polyp or mucosal retention cyst. Mild mucosal thickening right sphenoid sinus with a 1.2 cm polyp or mucosal retention cyst. Mild mucosal thickening bilateral ethmoid air cells and maxillary sinuses. Trace mucosal thickening anterior left frontal sinus. There is no air-fluid level. Reactive louis- osteogenesis is not seen. There is no destruction of the osseous richards of the paranasal sinuses. THE NASAL CAVITY: The osteomeatal complexes are patent. There is rightward nasal septal deviation. Questionable 7 mm fusiform prominence to the tip of the basilar artery, axial image 41. Small amount of trapped fluid in the inferior mastoid air cells on both sides. Reformatted images confirm above findings. IMPRESSION: 1. Moderate chronic left sphenoid sinus disease. Mild chronic mucosal thickening throughout the remai nder of the paranasal sinuses. A couple scattered small polyps or mucosal retention cysts measuring u p to 1.2 cm. 2. Rightward nasal septal deviation. 3. Questionable 7 mm fusiform prominence to the distal basilar artery. Recommend CT angiography or MR angiography of the [place] to exclude possible aneurysm. 4. Small amount of fluid trapped in the inferior mastoid air cells on both sides. Correlate for any m astoid pain to exclude mastoiditis.
== END | disposition home or self-care (01) ==
LOC: RADCTMAIN 07:05
PROVIDERS: ATTEND Otolaryngology
DX: J34.89 Other specified disorders of nose and nasal sinuses (principal); J34.2 Deviated nasal septum
CPT/HCPCS: 70486

== ENCOUNTER → 2021-07-24 | Outpatient (CLI) | payer MEDICARE | END | disposition home or self-care (01) | LOC: LABWHC1 07:07 | PROVIDERS: ATTEND Internal Medicine Endocrinology, Diabetes & Metabolism | DX: E11.65 Type 2 diabetes mellitus with hyperglycemia (principal) | CPT/HCPCS: 36415; 82533 ==

== ENCOUNTER → 2021-08-03 | Outpatient (CLI) | payer MEDICARE ==
[2021-08-03 07:51] LABS: African American GFR (CKD) >90 (>60 ml/min/1.73 sqM); Blood Urea Nitrogen 33 mg/dL (9-20); Non-African American GFR(CKD) 83 (>60 ml/min/1.73 sqM)
--- NOTE | 2021-08-03 10:12 | CT ---
EXAMINATION TYPE: CT angio C[facility] DATE OF EXAM: 08/03/2021 8:30 AM COMPARISON: CT brain July 02, 2011. CT sinus July 13, 2011 HISTORY: Aneurysm, abnormal recent CT. CT DLP: 1475.6 mGycm Automated exposure control for dose reduction was used. TECHNIQUE: Performed without and with IV Contrast, patient injected with 100 mL of Isovue 370. 3D reconstructed images are created on an independent workstation and reviewed.. FINDINGS: Noncontrast CT shows no acute intracranial hemorrhage or midline shift. There is mild ventricular and sulcal prominence along with mild low-attenuation in the periventricular white matter redemonstrated . Moderate mucosal thickening with mucous retention cyst or polyp in the left sphenoid sinus redemons trated. Small mucous retention cyst or polyp in the medial right sphenoid sinus redemonstrated. Mild mucosal thickening involving ethmoid sinuses left greater than right redemonstrated. CTA images show codominant vertebral arteries. There are stable focal prominence or dolichoectasia th e basilar tip series 10 image [address] and unchanged from [address], no new a neurysm is evident. Hypoplastic bilateral posterior communicating arteries. Anterior circulation shows close proximity of the anterior cerebral arteries. Hypoplastic or poorly v isualized anterior communicating artery is noted. There is no significant focal stenosis or aneurysm in the anterior circulation. [id number] calcified plaque distal internal carotid arteries bilat erally is present. 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 No n ew aneurysm is present.
== END | disposition home or self-care (01) ==
LOC: RADCTMAIN 06:41
PROVIDERS: ATTEND Otolaryngology
DX: I72.8 Aneurysm of other specified arteries (principal)
CPT/HCPCS: 70496; 82565; 84520

== ENCOUNTER 2021-11-12 17:25 | Inpatient (IN) | payer MEDICARE ==
--- NOTE | 2021-11-12 18:47 | ED ---
General Adult HPI - General Chief complaint: Wound/Laceration Stated complaint: Rt Leg Wound, PCP sent pt in Time Seen by Provider: 11/12/21 18:25 Source: patient, family, RN notes reviewed, old records reviewed Mode of arrival: ambulatory Limitations: no limitations - History of Present Illness Initial comments: This is a pleasant 71-year-old male, alert and oriented presents with his complaining of a right leg ulcer that is not responding to Bactrim that was prescribed by his primary care doctor. He states that he has had this ulcer for 2 weeks and continues to drain purulent drainage. He was sent here by Dr. Juarez for admission and IV antibiotics. He denies any pain. -: week(s) (2) Location: right, lower extremity (lower leg) Severity scale (1-10): 0 Associated Symptoms: denies other symptoms Treatments Prior to Arrival: other (bactrim) - Related Data Home Medications Medication Instructions Recorded Confirmed Atenolol/Chlorthalidone 1 tab PO DAILY 09/13/17 11/12/21 [Atenolol/Chlorthalidone 50-25] Canagliflozin [Invokana] 300 mg PO DAILY 09/13/17 11/12/21 Enalapril Maleate [Vasotec] 20 mg PO BID 09/13/17 11/12/21 glipiZIDE XL [Glucotrol XL] 10 mg PO BID 09/13/17 11/12/21 metFORMIN HCL ER [Glucophage XR] 1,000 mg PO BID 09/14/17 11/12/21 Insulin Aspart [NovoLOG Flexpen] 30 - 60 units SQ ACHS 10/06/18 11/12/21 Rosuvastatin [Crestor] 20 mg PO HS 04/12/20 11/12/21 Ibuprofen [Motrin] 800 mg PO Q8H PRN 05/20/20 11/12/21 Sulfamethox-Tmp 800-160Mg [Bactrim 1 tab PO BID 11/12/21 11/12/21 DS 800-160 mg] Allergies Allergy/AdvReac Type Severity Reaction Status Date / Time No Known Allergies Allergy Verified 11/12/21 20:34 Review of Systems ROS Statement: Those systems with pertinent positive or pertinent negative responses have been documented in the HPI. ROS Other: All systems not noted in ROS Statement are negative. Past Medical History Past Medical History: Diabetes Mellitus, Hyperlipidemia, Hypertension, Sleep Apnea/CPAP/BIPAP History of Any Multi-Drug Resistant Organisms: None Reported Past Surgical History: Appendectomy, Orthopedic Surgery Past Anesthesia/Blood Transfusion Reactions: No Reported Reaction Past Psychological History: No Psychological Hx Reported Smoking Status: Never smoker Past Alcohol Use History: Rare Past Drug Use History: None Reported - Past Family History Father Family Medical History: Cancer Brother(s) Family Medical History: Cancer General Exam Limitations: no limitations General appearance: alert, in no apparent distress Head exam: Present: atraumatic Eye exam: Present: EOMI, conjunctival injection ENT exam: Present: normal exam, normal oropharynx, mucous membranes moist Neck exam: Present: normal inspection, full ROM. Absent: tenderness, meningismus, lymphadenopathy Respiratory exam: Present: normal lung sounds bilaterally. Absent: respiratory distress, chest wall tenderness, accessory muscle use Cardiovascular Exam: Present: regular rate GI/Abdominal exam: Present: soft, distended. Absent: tenderness Extremities exam: Present: pedal edema (trace bilateral) Left Lower Leg exam: Present: full ROM, swelling, erythema (ulcer distal lower extremity medial / posterior aspect approx 7cm x 6cm) Neurovascular tendon exam: Present: no vascular compromise (Pedal pulses are present; pigment changes BLLE cap refill less than 3 seconds). Absent: abnormal cap refill, extremity cold to touch Neurological exam: Present: alert, oriented X3 Psychiatric exam: Present: normal affect, normal mood Skin exam: Present: warm, dry, other (Bilateral lower extremity venous insufficiency) Course Vital Signs 11/12/21 11/12/21 11/12/21 17:29 19:50 20:32 Temperature 97.4 F L 98.2 F Pulse Rate 68 67 Pulse Rate [ 63 Pulse Oximetery ] Respiratory 18 20 20 Rate Blood Pressure 141/70 111/65 Blood Pressure 144/84 [Right Arm] O2 Sat by Pulse 89 L 95 93 L Oximetry Medical Decision Making - Medical Decision Making Pleasant 71-year-old male presents with a right leg ulcer that is not responding to Bactrim. He denies any systemic symptoms, no nausea vomiting diarrhea or fevers. There is no evidence of leukocytosis. Blood cultures were drawn. The patient was started on vancomycin and Zosyn. Admitted for cellulitis right lower leg ulcer. - Lab Data Result diagrams: 11/12/21 19:11 11/12/21 19:11 Disposition Clinical Impression: Leg ulcer Disposition: ADMITTED IP TO THIS HOSP Decision Date: 11/12/21 Decision Time: 19:33
[2021-11-12 19:21] LABS: Basophils % (A) 0 %; Eosinophils % (A) 0 %; HCT 53.2 % (39.0-53.0); HGB 17.4 gm/dL (13.0-17.5); Lymphocytes # (A) 1.2 k/uL (1.0-4.8); Lymphocytes % (A) 17 %; MCH 30.6 pg (25.0-35.0); MCHC 32.7 g/dL (31.0-37.0); MCV 93.4 fL (80.0-100.0); Mean Platelet Volume 7.9; Monocytes # (A) 0.7 k/uL (0-1.0); Monocytes % (A) 9 %; Neutrophils # (A) 5.3 k/uL (1.3-7.7); Neutrophils % (A) 71 %; Platelet Count 219 k/uL (150-450); RDW 14.4 % (11.5-15.5); WBC 7.5 k/uL (3.8-10.6)
[2021-11-12] MEDS ORDERED: PIPERACILLIN-TAZOBACTAM 3.375 GM in SODIUM CHLORIDE 0.9% 100 ML IVPB STA (19:30)
[2021-11-12 19:32] LABS: Albumin 4.4 g/dL (3.5-5.0); Calcium 9.1 mg/dL (8.4-10.2); Potassium 4.8 mmol/L (3.5-5.1); Total Bilirubin 0.9 mg/dL (0.2-1.3); Total Protein 7.7 g/dL (6.3-8.2)
[2021-11-12] MEDS ORDERED: VANCOMYCIN 1,000 MG in SODIUM CHLORIDE 0.9% 250 ML IVPB STA (19:35)
[2021-11-12] MEDS ORDERED: VANCOMYCIN IV PER PHARMACY 1 EACH MISC MISCELLANE PRN (19:43)
[2021-11-12] MEDS ORDERED: ACETAMINOPHEN TAB 325 MG TAB PO PRN (20:12)
[2021-11-12] MEDS ORDERED: NALOXONE 0.4 MG/ML 1 ML VIAL IV PRN (20:12)
[2021-11-12] MEDS ORDERED: VANCOMYCIN 2,500 MG in SODIUM CHLORIDE 0.9% 500 ML 500 ML IVPB ONE (20:15)
[2021-11-12] MEDS ORDERED: traMADol 50 MG TAB PO PRN (22:00)
[2021-11-13] MEDS: IBUPROFEN 400 MG TAB PO PRN (01:46)
[2021-11-13 07:18] LABS: Glucose,Whole Blood 213 mg/dL (75-99)
[2021-11-13] MEDS ORDERED: NON FORMULARY DRUG (Atenolol/Chlorthalidone [Atenolol/Chlorthalidone 50-25] 1 EACH Tablet) PO SCH (10:30)
--- NOTE | 2021-11-13 11:02 | P.HPIM ---
History of Present Illness H&P Date: 11/13/21 Chief Complaint: Cellulitis, lower right leg ulcer This is a 70-year-old gentleman with medical history of morbid obesity, sleep apnea chronic back pain, lumbar fracture, diabetes, hypertension, hyperlipidemia and multiple other medical issues directed to the ER from primary care physician's office related to right lower extremity wound with purulent drainage-present 2 weeks-not responding to Bactrim, bilateral lower extremity cellulitis with significant redness, edema, dull aching pain. Afebrile, normal WBC. Hemoglobin 17.4, platelets 219. BUN 39, creatinine 1.16, blood sugars 213. Denies chest pain, palpitations or shortness of breath. Review of Systems ROS Statement: Those systems with pertinent positive or pertinent negative responses have been documented in the HPI. ROS Other: All systems not noted in ROS Statement are negative. Past Medical History Past Medical History: Diabetes Mellitus, Hyperlipidemia, Hypertension, Sleep Apnea/CPAP/BIPAP History of Any Multi-Drug Resistant Organisms: None Reported Past Surgical History: Appendectomy, Orthopedic Surgery Past Anesthesia/Blood Transfusion Reactions: No Reported Reaction Past Psychological History: No Psychological Hx Reported Smoking Status: Never smoker Past Alcohol Use History: Rare Past Drug Use History: None Reported - Past Family History Father Family Medical History: Cancer Brother(s) Family Medical History: Cancer Medications and Allergies Home Medications Medication Instructions Recorded Confirmed Type Atenolol/Chlorthalidone 1 tab PO DAILY 09/13/17 11/12/21 History [Atenolol/Chlorthalidone 50-25] Canagliflozin [Invokana] 300 mg PO DAILY 09/13/17 11/12/21 History Enalapril Maleate [Vasotec] 20 mg PO BID 09/13/17 11/12/21 History glipiZIDE XL [Glucotrol XL] 10 mg PO BID 09/13/17 11/12/21 History metFORMIN HCL ER [Glucophage XR] 1,000 mg PO BID 09/14/17 11/12/21 History Insulin Aspart [NovoLOG Flexpen] 30 - 60 units SQ ACHS 10/06/18 11/12/21 History Rosuvastatin [Crestor] 20 mg PO HS 04/12/20 11/12/21 History Ibuprofen [Motrin] 800 mg PO Q8H PRN 05/20/20 11/12/21 History Sulfamethox-Tmp 800-160Mg [Bactrim 1 tab PO BID 11/12/21 11/12/21 History DS 800-160 mg] Allergies Allergy/AdvReac Type Severity Reaction Status Date / Time No Known Allergies Allergy Verified 11/12/21 20:34 Physical Exam Vitals: Vital Signs Temp Pulse Pulse Resp BP BP Pulse Ox 11/13/21 07:00 97.4 F L 71 16 147/81 93 L 11/13/21 02:19 98.2 F 60 20 145/87 92 L 11/12/21 20:57 97.8 F 68 20 115/80 100 11/12/21 20:32 98.2 F 63 20 144/84 93 L 11/12/21 19:50 67 20 111/65 95 11/12/21 17:29 97.4 F L 68 18 141/70 89 L Intake and Output 11/12/21 11/13/21 11/13/21 22:59 06:59 14:59 Intake Total 118 Output Total 700 Balance -700 118 Intake: Oral 118 Output: Urine 700 Other: # Voids 0 1 Weight 179.169 kg PHYSICAL EXAM: VITAL SIGNS: As above GENERAL: Sitting up in bed, in no acute distress HEENT: Conjunctivae normal. eyes normal. Oral mucosa moist NECK: No JVD. No thyroid enlargement. No LNs CARDIOVASCULAR: S1, S2 regular. No murmur RESPIRATION: Breath sounds diminished in the bases. No rhonchi or crackles. No bronchial breathing. ABDOMEN: Soft, nontender . No guarding. no masses palpable. No ascites, No hepatosplenomegaly.Bowel sounds heard. LEGS: Bilateral lower extremites with stasis dermatitis, right lower medial extremity with open ulcer, purulent drainage-refer to pictures/measurements as per nursing with edema, redness, erythema, tenderness.Pos. pulses. PSYCHIATRY: Alert and oriented X3, mood and affect normal. NERVOUS SYSTEM: Cranial N 2-12 grossly normal. Moves all 4 limbs. Diffuse weakness No focal deficits. Strength and sensation grossly intact. Skin: Warm and dry, no rash Results CBC & Chem 7: 11/12/21 19:11 11/13/21 07:22 Labs: Abnormal Lab Results - Last 24 Hours (Table) 11/12/21 11/12/21 11/13/21 Range/Units 19:11 19:11 07:17 Hct 53.2 H (39.0-53.0) % BUN 39 H (9-20) mg/dL POC Glucose (mg/dL) 213 H (75-99) mg/dL Microbiology - Last 24 Hours (Table) 11/12/21 19:11 Gram Stain - Preliminary Leg - Right Wound Culture - Preliminary Assessment and Plan Assessment: Bilateral lower lower extremity cellulitis, right lower extr. ulcer, in a patient with peripheral vascular disease, venous insufficiency, failed outpatient treatment. Diabetes mellitus type 2, uncontrolled, hyperglycemia CAD Hypertension Hyperlipidemia Degenerative joint disease Chronic back pain, chronic L1 compression fracture, multiple levels of degene rative disc disease, spondylosis and mild thoracolumbar scoliosis Morbid obesity, BMI 56.7 Sleep apnea Hospital course: Continue on current medication regime ,monitoring and symptomatic treatment. Silvadene bernardino wraps ordered for bilateral lower extremity cellulitis-Beranrdino wrap to bilateral legs from just above the toes to below the knees. Blood and aerobic wound cultures obtained, results pending Currently on Zosyn, Vancomycin for antibiotic coverage.Close monitoring of renal function with repeat labs ordered for a.m. Vascular and Infectious disease consulted with recommendations pending. Tight blood sugar control. Weight loss/reduction discussed .GI and DVT prophylaxis in place. The impression and plan of care has been dictated as directed. : I performed a history and examination of this patient, discussed the same with the dictator. I agree with the dictator's note ,documented as a scribe. Any additional findings or plans will be noted.
--- NOTE | 2021-11-13 11:46 | P.GSCN ---
History of Present Illness Consult date: 11/13/21 Reason for Consult: Venous insufficiency, diabetic ulcer Requesting physician: Darren Juarez History of present illness: This is a 71-year-old male with multiple comorbidities including morbid obesity, venous stasis, chronic back pain, diabetes, hypertension, and hyperlipidemia who was sent to the emergency department as directed by his primary care physician Dr. Juarez for a diabetic ulcer and cellulitis. The patient states the ulcers started about 2 weeks ago with a blister and then popped. He states he's had some drainage, no pus or foul odor. It was not healing, then it suddenly started to scab over and yesterday it looked very dark so he was seen in the office. He denies any fevers or chills. He does have a history of venous stasis and had arterial study of the lower extremities done in February 2021 that showed a normal arterial study with ABIs greater than 1 bilaterally. Patient states he does not have significant pain in his legs he can walk with no pain other than he does not walk long distance due to his back. Review of Systems 14 point review of systems completed and all pertinent positives and negatives as stated in the HPI. Past Medical History Past Medical History: Diabetes Mellitus, Hyperlipidemia, Hypertension, Sleep Apnea/CPAP/BIPAP History of Any Multi-Drug Resistant Organisms: None Reported Past Surgical History: Appendectomy, Orthopedic Surgery Past Anesthesia/Blood Transfusion Reactions: No Reported Reaction Past Psychological History: No Psychological Hx Reported Smoking Status: Never smoker Past Alcohol Use History: Rare Past Drug Use History: None Reported - Past Family History Father Family Medical History: Cancer Brother(s) Family Medical History: Cancer Medications and Allergies Home Medications Medication Instructions Recorded Confirmed Type Atenolol/Chlorthalidone 1 tab PO DAILY 09/13/17 11/12/21 History [Atenolol/Chlorthalidone 50-25] Canagliflozin [Invokana] 300 mg PO DAILY 09/13/17 11/12/21 History Enalapril Maleate [Vasotec] 20 mg PO BID 09/13/17 11/12/21 History glipiZIDE XL [Glucotrol XL] 10 mg PO BID 09/13/17 11/12/21 History metFORMIN HCL ER [Glucophage XR] 1,000 mg PO BID 09/14/17 11/12/21 History Insulin Aspart [NovoLOG Flexpen] 30 - 60 units SQ ACHS 10/06/18 11/12/21 History Rosuvastatin [Crestor] 20 mg PO HS 04/12/20 11/12/21 History Ibuprofen [Motrin] 800 mg PO Q8H PRN 05/20/20 11/12/21 History Sulfamethox-Tmp 800-160Mg [Bactrim 1 tab PO BID 11/12/21 11/12/21 History DS 800-160 mg] Allergies Allergy/AdvReac Type Severity Reaction Status Date / Time No Known Allergies Allergy Verified 11/12/21 20:34 Surgical - Exam Vital Signs Temp Pulse Resp BP Pulse Ox 97.4 F L 68 18 141/70 89 L 11/12/21 17:29 11/12/21 17:29 11/12/21 17:29 11/12/21 17:29 11/12/21 17:29 General appearance: The patient is alert, oriented, appears in no acute distress. Morbidly obese. HET: Head is normocephalic and atraumatic. Pupils are equal and reactive. Neck: Supple without lymphadenopathy. Trachea midline. No audible carotid bruit. Heart: S1 S2. Regular rate and rhythm. Lungs: Clear to auscultation bilaterally. Abdomen: Soft, nontender, nondistended. Extremities: Bilateral lower extremities with swelling, discoloration, erythema. Right lower extremity with posterior medial ulceration that is dry, with some necrotic tissue. Venous stasis bilaterally. Palpable bilateral dorsalis pedis pulses. Neurological: No focal deficits. Strength and sensation are grossly intact. Results - Labs 11/12/21 19:11 11/13/21 07:22 Abnormal Lab Results - Last 24 Hours (Table) 11/12/21 11/12/21 11/13/21 Range/Units 19:11 19:11 07:17 Hct 53.2 H (39.0-53.0) % BUN 39 H (9-20) mg/dL POC Glucose (mg/dL) 213 H (75-99) mg/dL Microbiology - Last 24 Hours (Table) 11/12/21 19:11 Gram Stain - Preliminary Leg - Right Wound Culture - Preliminary Diabetes panel 11/12/21 Range/Units 19:11 Sodium 139 (137-145) mmol/L Potassium 4.8 (3.5-5.1) mmol/L Chloride 102 (98-107) mmol/L Carbon Dioxide 27 (22-30) mmol/L BUN 39 H (9-20) mg/dL Creatinine 1.13 (0.66-1.25) mg/dL Glucose 93 (74-99) mg/dL Calcium 9.1 (8.4-10.2) mg/dL AST 25 (17-59) U/L ALT 17 (4-49) U/L Alkaline Phosphatase 65 (38-126) U/L Total Protein 7.7 (6.3-8.2) g/dL Albumin 4.4 (3.5-5.0) g/dL Calcium panel 11/12/21 Range/Units 19:11 Calcium 9.1 (8.4-10.2) mg/dL Albumin 4.4 (3.5-5.0) g/dL Pituitary panel 11/12/21 Range/Units 19:11 Sodium 139 (137-145) mmol/L Potassium 4.8 (3.5-5.1) mmol/L Chloride 102 (98-107) mmol/L Carbon Dioxide 27 (22-30) mmol/L BUN 39 H (9-20) mg/dL Creatinine 1.13 (0.66-1.25) mg/dL Glucose 93 (74-99) mg/dL Calcium 9.1 (8.4-10.2) mg/dL Adrenal panel 11/12/21 Range/Units 19:11 Sodium 139 (137-145) mmol/L Potassium 4.8 (3.5-5.1) mmol/L Chloride 102 (98-107) mmol/L Carbon Dioxide 27 (22-30) mmol/L BUN 39 H (9-20) mg/dL Creatinine 1.13 (0.66-1.25) mg/dL Glucose 93 (74-99) mg/dL Calcium 9.1 (8.4-10.2) mg/dL Total Bilirubin 0.9 (0.2-1.3) mg/dL AST 25 (17-59) U/L ALT 17 (4-49) U/L Alkaline Phosphatase 65 (38-126) U/L Total Protein 7.7 (6.3-8.2) g/dL Albumin 4.4 (3.5-5.0) g/dL Assessment and Plan Assessment: 1. Right lower extremity diabetic ulcer 2. Venous stasis/insufficiency 3. Diabetes mellitus Plan: 1. Recommend elevation of lower extremities 2. After infectious disease sees patient, please wrap lower extremities with Bernardino wrap 3. Plan for debridement of right lower extremity tomorrow 4. Nothing by mouth after midnight Thank you for this consultation, we will continue to follow. The impression and plan of care has been dictated as directed. Dr. Negron I performed a history and examination of this patient, discussed the same with the dictator. I agree with the dictator's note ,documented as a scribe. Any additional findings or plans will be noted.
[2021-11-13] MEDS: VANCOMYCIN 2,500 MG in SODIUM CHLORIDE 0.9% 500 ML 500 ML IVPB SCH (12:19)
[2021-11-13] MEDS: NON FORMULARY DRUG (Canagliflozin [Invokana] 300 MG Tablet) PO SCH (12:21)
[2021-11-13 12:22] LABS: Glucose,Whole Blood 218 mg/dL (75-99)
[2021-11-13] MEDS: INSULIN ASPART (NovoLOG) 100 UNIT/ML VIAL SQ SCH ×5 (12:32→21:27)
[2021-11-13] MEDS: HEPARIN SODIUM,PORCINE/PF 5,000 UNIT/0.5 ML SYRINGE SQ SCH ×4 (12:33→21:29)
[2021-11-13] MEDS: CHLORTHALIDONE 25 MG TAB PO SCH (12:33)
[2021-11-13] MEDS: glipiZIDE 10 MG TAB PO SCH ×2 (12:33→17:54)
[2021-11-13] MEDS: atenoloL 50 MG TAB PO SCH (12:33)
[2021-11-13] MEDS: PANTOPRAZOLE 40 MG/10 ML VIAL IVP SCH (12:34)
[2021-11-13] MEDS: INSULIN DETEMIR (LEVEMIR) 100 UNIT/ML SYR SQ SCH (12:34)
[2021-11-13] MEDS: lisinopriL 20 MG TAB PO SCH ×2 (12:44→21:28)
[2021-11-13 17:44] LABS: Glucose,Whole Blood 231 mg/dL (75-99)
[2021-11-13 20:56] LABS: Glucose,Whole Blood 208 mg/dL (75-99)
[2021-11-13] MEDS: ATORVASTATIN 40 MG TAB PO SCH (21:27)
--- NOTE | 2021-11-13 22:39 | P.CONS ---
History of Present Illness - Reason for Consult Consult date: 11/13/21 Bilateral lower extremity cellulitis Requesting physician: Ugo Saleh - Chief Complaint Bilateral lower extremity swelling left leg wound and redness x few days - History of Present Illness Patient is a 71 male presenting to the ER last evening for evaluation of increasing swelling and redness to bilateral lower extremity especially the left leg and this patient symptom has been going off for more than a week patient noticed to having increasing swelling lower extremity subsequent developing a blister that ruptured leading to ulceration to the left leg patient mention was some clear fluid draining out of it with associated swelling redness and did have some dull aching pain 3-4 of 10 in radiation patient has been treated with the oral Bactrim DS by his primary care physician without any improvement as the patient presented to hospital on arrival to the ER the patient was afebrile patient has a normal white count kidney function was normal blood and local culture has been obtained patient was started on vancomycin infectious disease was consulted for further management of antibiotic therapy Review of Systems Positive point has been mentioned in the HPI rest of the systems are negative Past Medical History Past Medical History: Diabetes Mellitus, Hyperlipidemia, Hypertension, Sleep Apnea/CPAP/BIPAP History of Any Multi-Drug Resistant Organisms: None Reported Past Surgical History: Appendectomy, Orthopedic Surgery Past Anesthesia/Blood Transfusion Reactions: No Reported Reaction Past Psychological History: No Psychological Hx Reported Smoking Status: Never smoker Past Alcohol Use History: Rare Past Drug Use History: None Reported - Past Family History Father Family Medical History: Cancer Brother(s) Family Medical History: Cancer Medications and Allergies Home Medications Medication Instructions Recorded Confirmed Type Atenolol/Chlorthalidone 1 tab PO DAILY 09/13/17 11/12/21 History [Atenolol/Chlorthalidone 50-25] Canagliflozin [Invokana] 300 mg PO DAILY 09/13/17 11/12/21 History Enalapril Maleate [Vasotec] 20 mg PO BID 09/13/17 11/12/21 History glipiZIDE XL [Glucotrol XL] 10 mg PO BID 09/13/17 11/12/21 History metFORMIN HCL ER [Glucophage XR] 1,000 mg PO BID 09/14/17 11/12/21 History Insulin Aspart [NovoLOG Flexpen] 30 - 60 units SQ ACHS 10/06/18 11/12/21 History Rosuvastatin [Crestor] 20 mg PO HS 04/12/20 11/12/21 History Ibuprofen [Motrin] 800 mg PO Q8H PRN 05/20/20 11/12/21 History Sulfamethox-Tmp 800-160Mg [Bactrim 1 tab PO BID 11/12/21 11/12/21 History DS 800-160 mg] Allergies Allergy/AdvReac Type Severity Reaction Status Date / Time No Known Allergies Allergy Verified 11/12/21 20:34 Physical Exam Vitals: Vital Signs Temp Pulse Pulse Resp BP BP Pulse Ox 11/13/21 07:00 97.4 F L 71 16 147/81 93 L 11/13/21 02:19 98.2 F 60 20 145/87 92 L 11/12/21 20:57 97.8 F 68 20 115/80 100 11/12/21 20:32 98.2 F 63 20 144/84 93 L 11/12/21 19:50 67 20 111/65 95 11/12/21 17:29 97.4 F L 68 18 141/70 89 L Intake and Output 11/12/21 11/13/21 11/13/21 22:59 06:59 14:59 Intake Total 118 Output Total 700 Balance -700 118 Intake: Oral 118 Output: Urine 700 Other: # Voids 0 1 Weight 179.169 kg GENERAL DESCRIPTION: An elderly male lying in bed, no distress. No tachypnea or accessory muscle of respiration use. HEENT: Shows Pallor , no scleral icterus. Oral mucous membrane is dry. No phary ngeal erythema or thrush NECK: Trachea central, no thyromegaly. LUNGS: Unlabored breathing. Decreased the base. No wheeze or crackle. HEART: S1, S2, regular rate and rhythm. No loud murmur ABDOMEN: Soft, no tenderness , guarding or rigidity, no organomegaly EXTREMITIES: Diffuse swelling bilateral lower extremity left leg did have an aspiration with some slough tissue surrounding redness no drainage SKIN: No rash, no masses palpable. NEUROLOGICAL: The patient is awake, alert, oriented x3, mood and affect normal. Results CBC & Chem 7: 11/12/21 19:11 11/13/21 07:22 Labs: Abnormal Lab Results - Last 24 Hours (Table) 11/12/21 11/12/21 11/13/21 Range/Units 19:11 19:11 07:17 Hct 53.2 H (39.0-53.0) % BUN 39 H (9-20) mg/dL POC Glucose (mg/dL) 213 H (75-99) mg/dL Microbiology - Last 24 Hours (Table) 11/12/21 19:11 Gram Stain - Preliminary Leg - Right Wound Culture - Preliminary Assessment and Plan (1) Leg ulcer Current Visit: Yes Status: Acute Code(s): L97.909 - NON-PRS CHRONIC ULC UNSP PRT OF UNSP LOW LEG W UNSP SEVERITY SNOMED Code(s): 20331356 (2) Left leg cellulitis Current Visit: No Status: Acute Code(s): L03.116 - CELLULITIS OF LEFT LOWER LIMB SNOMED Code(s): 532589546 Plan: 1patient presented to hospital with bilateral lower extremity cellulitis left leg greater than right in this patient with evidence of fluid overload and cellulitis and not responding to the outpatient Bactrim DS more likely because of the burden of disease. 2vancomycin pharmacy to dose target trough of 15 while watching kidney function and vancomycin trough closely 3local wound care with [facility] followed by moist dressing and Kerlix We will follow on clinical condition and cultures to further adjust medication if needed Thank you for this consultation will follow this patient along with you
[2021-11-14] MEDS: VANCOMYCIN 2,500 MG in SODIUM CHLORIDE 0.9% 500 ML 500 ML IVPB SCH ×2 (03:08→17:32)
[2021-11-14 07:13] LABS: African American GFR (CKD) >90 (>60 ml/min/1.73 sqM); Anion Gap 6 mmol/L; Blood Urea Nitrogen 35 mg/dL (9-20); Calcium 8.8 mg/dL (8.4-10.2); Carbon Dioxide 28 mmol/L (22-30); Chloride 105 mmol/L (98-107); Glucose 164 mg/dL (74-99); Non-African American GFR(CKD) 85 (>60 ml/min/1.73 sqM); Potassium 4.5 mmol/L (3.5-5.1); Sodium 139 mmol/L (137-145)
[2021-11-14 07:40] LABS: Glucose,Whole Blood 150 mg/dL (75-99)
[2021-11-14] MEDS: INSULIN ASPART (NovoLOG) 100 UNIT/ML VIAL SQ SCH ×6 (08:19→20:58)
[2021-11-14] MEDS: PANTOPRAZOLE 40 MG/10 ML VIAL IVP SCH (08:27)
[2021-11-14] MEDS: CHLORTHALIDONE 25 MG TAB PO SCH (08:28)
[2021-11-14] MEDS: atenoloL 50 MG TAB PO SCH (08:28)
[2021-11-14] MEDS: lisinopriL 20 MG TAB PO SCH ×2 (08:28→20:58)
[2021-11-14] MEDS: HEPARIN SODIUM,PORCINE/PF 5,000 UNIT/0.5 ML SYRINGE SQ SCH ×3 (08:51→20:59)
[2021-11-14 10:52] VITALS: BMI 56.7
[2021-11-14 12:33] LABS: Glucose,Whole Blood 166 mg/dL (75-99)
[2021-11-14] MEDS: NON FORMULARY DRUG (Canagliflozin [Invokana] 300 MG Tablet) PO SCH (13:02)
[2021-11-14] MEDS: INSULIN DETEMIR (LEVEMIR) 100 UNIT/ML SYR SQ SCH (13:03)
[2021-11-14] MEDS: glipiZIDE 10 MG TAB PO SCH ×2 (13:03→18:07)
[2021-11-14] MEDS ORDERED: IV FLUID CONTINUATION 1,000 ML IV ONE (13:36)
[2021-11-14] MEDS ORDERED: METOCLOPRAMIDE 5 MG/ML 2 ML VIAL ONE (13:44)
[2021-11-14] MEDS ORDERED: ONDANSETRON 4 MG/2 ML VIAL ONE (13:44)
[2021-11-14] MEDS ORDERED: METOCLOPRAMIDE 5 MG/ML 2 ML VIAL IVP ONE (13:55)
[2021-11-14] MEDS ORDERED: ONDANSETRON 4 MG/2 ML VIAL IVP ONE (13:55)
[2021-11-14] MEDS ORDERED: LACTATED RINGERS 1,000 ML IV ONE (13:55)
--- NOTE | 2021-11-14 14:43 | P.PN ---
Progress Note - Text Progress Note Date: 11/14/21 Patient seen and examined. Questions are answered. We discussed at the bedside with the patient and his spouse that during surgery we will plan to be a full code. After the surgery we can switch back over to a status. They seemingly understand and are willing to proceed in this manner.
[2021-11-14] MEDS ORDERED: MIDAZOLAM 2 MG/2 ML VIAL ONE (15:00)
[2021-11-14] MEDS ORDERED: fentaNYL (PF) 50 MCG/ML 2 ML AMP ONE (15:00)
[2021-11-14] MEDS ORDERED: KETAMINE 10 MG/ML 20 ML VIAL ONE (15:00)
[2021-11-14 15:33] LABS: Glucose,Whole Blood 167 mg/dL (75-99)
[2021-11-14] MEDS ORDERED: HYDROmorphone 0.5 MG/0.5 ML SYRINGE IVP ONE (15:50)
[2021-11-14 17:45] LABS: Glucose,Whole Blood 158 mg/dL (75-99)
--- NOTE | 2021-11-14 18:06 | P.PN ---
Subjective Progress Note Date: 11/14/21 This is a 70-year-old gentleman with medical history of morbid obesity, sleep apnea chronic back pain, lumbar fracture, diabetes, hypertension, hyperlipidemia and multiple other medical issues directed to the ER from primary care physician's office related to right lower extremity wound with purulent drain age-present 2 weeks-not responding to Bactrim, bilateral lower extremity cellulitis with significant redness, edema, dull aching pain. Afebrile, normal WBC. Hemoglobin 17.4, platelets 219. BUN 39, creatinine 1.16, blood sugars 213. Denies chest pain, palpitations or shortness of breath. 11-14-21 scheduled for debridement today with vascular surgery. Wound and blood cultures pending .Obtained on antibiotics of vancomycin as per ID. Renal function stable. Blood sugars better controlled. Denies any chest pain, palpitations or shortness of breath. Oxygen requirements decreased to 3 L maint aining O2 sats in the 90s. Objective - Vital Signs Vital signs: Vital Signs Temp 97.7 F 11/14/21 16:49 Pulse 76 11/14/21 17:31 Resp 16 11/14/21 17:31 BP 163/82 11/14/21 17:31 Pulse Ox 96 11/14/21 17:31 Intake & Output 11/13/21 11/14/21 11/14/21 18:59 06:59 18:59 Intake Total 118 500 Output Total 850 1455 Balance -732 -955 Weight 179.169 kg Intake: IV 500 Oral 118 Output: Urine 850 1450 Estimated Blood Loss 5 Other: # Voids 1 2 - Exam PHYSICAL EXAM: VITAL SIGNS: As above GENERAL: Alert and oriented 3, Sitting up in bed, in no acute distress HEENT: Conjunctivae normal. eyes normal. Oral mucosa moist NECK: Supple, No JVD. CARDIOVASCULAR: S1, S2 regular. No murmur RESPIRATION: Breath sounds diminished in the bases. No rhonchi or crackles. No bronchial breathing. ABDOMEN: Soft, nontender . No guarding. no masses palpable. No ascites, No hepatosplenomegaly.Bowel sounds heard. LEGS: Bilateral lower extremites with stasis dermatitis, right lower medial extremity with dressing clean dry and intact, positive tenderness.Pos. pulses. NERVOUS SYSTEM: Cranial N 2-12 grossly normal. Moves all 4 limbs. Diffuse weakness No focal deficits. Strength and sensation grossly intact. Skin: Warm and dry, no rash Microbiology 11/12/21 19:11 Blood Blood Culture - Preliminary No Growth after 24 hours 11/12/21 18:50 Blood Blood Culture - Preliminary No Growth after 24 hours 11/12/21 19:11 Leg - Right Gram Stain - Preliminary 11/12/21 19:11 Leg - Right Wound Culture - Preliminary - Labs CBC & Chem 7: 11/12/21 19:11 11/14/21 06:31 Labs: Abnormal Lab Results - Last 24 Hours (Table) 11/13/21 11/14/21 11/14/21 Range/Units 20:55 06:31 07:38 BUN 35 H (9-20) mg/dL Glucose 164 H (74-99) mg/dL POC Glucose (mg/dL) 208 H 150 H (75-99) mg/dL 11/14/21 11/14/21 11/14/21 Range/Units 12:32 15:30 17:42 BUN (9-20) mg/dL Glucose (74-99) mg/dL POC Glucose (mg/dL) 166 H 167 H 158 H (75-99) mg/dL Microbiology - Last 24 Hours (Table) 11/12/21 19:11 Blood Culture - Preliminary Blood No Growth after 24 hours 11/12/21 18:50 Blood Culture - Preliminary Blood No Growth after 24 hours Assessment and Plan Assessment: Bilateral lower lower extremity cellulitis, right lower extr. ulcer, in a patie nt with peripheral vascular disease, venous insufficiency, failed outpatient treatment. Diabetes mellitus type 2, uncontrolled, hyperglycemia CAD Hypertension Hyperlipidemia Degenerative joint disease Chronic back pain, chronic L1 compression fracture, multiple levels of degenerative disc disease, spondylosis and mild thoracolumbar scoliosis Morbid obesity, BMI 56.7 Sleep apnea Hospital course: Continue on current medication regime ,monitoring and symptomatic treatment. Debridement pending. Blood and aerobic wound cultures pending. Wound care with medihoney. IV antibiotics of Vancomycin with close monitoring of renal function - repeat labs ordered for a.m. Tight blood sugar control. Weight loss/reduction discussed . The impression and plan of care has been dictated as directed. : I performed a history and examination of this patient, discussed the same with the dictator. I agree with the dictator's note ,documented as a scribe. Any additional findings or plans will be noted.
[2021-11-14 20:34] LABS: Glucose,Whole Blood 265 mg/dL (75-99)
[2021-11-14] MEDS: ATORVASTATIN 40 MG TAB PO SCH (20:58)
[2021-11-15 07:28] LABS: Glucose,Whole Blood 152 mg/dL (75-99)
[2021-11-15] MEDS: PANTOPRAZOLE 40 MG TABLET PO SCH (08:19)
[2021-11-15] MEDS: CHLORTHALIDONE 25 MG TAB PO SCH (08:19)
[2021-11-15] MEDS: HEPARIN SODIUM,PORCINE/PF 5,000 UNIT/0.5 ML SYRINGE SQ SCH ×3 (08:19→20:31)
[2021-11-15] MEDS: glipiZIDE 10 MG TAB PO SCH ×2 (08:19→17:43)
[2021-11-15] MEDS: lisinopriL 20 MG TAB PO SCH ×2 (08:19→20:31)
[2021-11-15] MEDS: INSULIN ASPART (NovoLOG) 100 UNIT/ML VIAL SQ SCH ×7 (08:20→20:30)
[2021-11-15] MEDS: NON FORMULARY DRUG (Canagliflozin [Invokana] 300 MG Tablet) PO SCH (08:20)
[2021-11-15] MEDS: atenoloL 50 MG TAB PO SCH (08:20)
--- NOTE | 2021-11-15 08:34 | P.PN ---
Subjective Progress Note Date: 11/15/21 The patient is seen and examined status post op day #1 for right lower extremity debridement. Overall patient is doing well. He is afebrile. Objective - Vital Signs Vital signs: Vital Signs Temp 98.2 F 11/15/21 07:26 Pulse 68 11/15/21 07:26 Resp 20 11/15/21 07:26 BP 125/70 11/15/21 07:26 Pulse Ox 90 L 11/15/21 07:26 Intake & Output 11/14/21 11/15/21 11/15/21 18:59 06:59 18:59 Intake Total 620 Output Total 1455 Balance -835 Weight 179.169 kg Intake: IV 500 Oral 120 Output: Urine 1450 Estimated Blood Loss 5 - Exam General appearance: The patient is alert, oriented, appears in no acute distress. Morbidly obese. HET: Head is normocephalic and atraumatic. Abdomen: Soft, nontender, nondistended. Extremities: Bilateral lower extremity edema with venous stasis. Redness to bilateral lower extremities. Right lower extremity with dressing clean dry and intact. Positive pedal pulses bilaterally. Neurological: No focal deficits. Strength and sensation are grossly intact. - Labs CBC & Chem 7: 11/12/21 19:11 11/14/21 06:31 Labs: Abnormal Lab Results - Last 24 Hours (Table) 11/14/21 11/14/21 11/14/21 Range/Units 12:32 15:30 17:42 POC Glucose (mg/dL) 166 H 167 H 158 H (75-99) mg/dL 11/14/21 11/15/21 Range/Units 20:32 07:17 POC Glucose (mg/dL) 265 H 152 H (75-99) mg/dL Microbiology - Last 24 Hours (Table) 11/12/21 19:11 Blood Culture - Preliminary Blood No Growth after 48 hours 11/12/21 18:50 Blood Culture - Preliminary Blood No Growth after 48 hours 11/12/21 19:11 Gram Stain - Preliminary Leg - Right Wound Culture - Preliminary Gram Neg Bacilli Assessment and Plan Assessment: 1. Right lower extremity diabetic ulcer status post debridement 2. Venous stasis/insufficiency 3. Diabetes mellitus 4. Morbidly obese Plan: 1. Recommend elevation of lower extremities 2. Continue dressing changes per recommendations from infectious disease 3. Plan for debridement of right lower extremity tomorrow and lower extremity compression stockings, on January wrapped with Bernardino wraps while in hospital 4. Discuss with patient recommend anything loss, kidney measured 4 compression stockings for appropriate size Thank you for this The impression and plan of care has been dictated as directed. Dr. Adan I performed a history and examination of this patient, discussed the same with the dictator. I agree with the dictator's note ,documented as a scribe. Any additional findings or plans will be noted.
[2021-11-15] MEDS: INSULIN DETEMIR (LEVEMIR) 100 UNIT/ML SYR SQ SCH (08:39)
[2021-11-15 08:49] LABS: Basophils % (A) 0 %; Eosinophils % (A) 0 %; HCT 54.1 % (39.0-53.0); HGB 17.6 gm/dL (13.0-17.5); Hypochromasia Slight; Lymphocytes # (A) 0.7 k/uL (1.0-4.8); Lymphocytes % (A) 10 %; MCH 30.7 pg (25.0-35.0); MCHC 32.5 g/dL (31.0-37.0); MCV 94.6 fL (80.0-100.0); Mean Platelet Volume 7.9; Monocytes # (A) 0.6 k/uL (0-1.0); Monocytes % (A) 8 %; Neutrophils # (A) 5.3 k/uL (1.3-7.7); Neutrophils % (A) 79 %; Platelet Count 204 k/uL (150-450); RBC 5.72 m/uL (4.30-5.90); RDW 14.5 % (11.5-15.5); WBC 6.6 k/uL (3.8-10.6)
[2021-11-15 08:52] LABS: African American GFR (CKD) 85 (>60 ml/min/1.73 sqM); Anion Gap 8 mmol/L; Blood Urea Nitrogen 35 mg/dL (9-20); Calcium 8.9 mg/dL (8.4-10.2); Carbon Dioxide 31 mmol/L (22-30); Chloride 103 mmol/L (98-107); Glucose 177 mg/dL (74-99); Non-African American GFR(CKD) 73 (>60 ml/min/1.73 sqM); Sodium 142 mmol/L (137-145)
[2021-11-15] MEDS ORDERED: INSULIN DETEMIR (LEVEMIR) 100 UNIT/ML SYR SQ ONE (09:00)
[2021-11-15] MEDS ORDERED: VANCOMYCIN TROUGH DUE 1 EACH MISC MISCELLANE ONE (09:00)
--- NOTE | 2021-11-15 10:50 | XR ---
EXAMINATION TYPE: XR chest 2V DATE OF EXAM: 11/15/2021 COMPARISON: X-ray dated 04/12/2020 HISTORY: Hypoxia TECHNIQUE: Frontal and lateral views of the chest are obtained. FINDINGS: Subtle heterogeneous opacities seen in the left upper and left lower lung zone, grossly stable compar ed to the previous CT scan and could represent chronic atelectasis or scarring. Congested pulmonary v asculature with prominent interstitial lung markings, suggestive of pulmonary edema, please clinicall y. No sizable pleural effusion or definite pneumothorax. Increased cardiac transverse diameter, possibly augmented by prominent epicardial fat pad. Old healed fractures of the posterior aspects of the left fourth, fifth, sixth and seventh ribs. Chronic anterior wedging of L1 vertebral body. IMPRESSION: Findings are suggestive of pulmonary edema, please correlate clinically. Associated infection can't b e excluded. Other incidental findings as described above.
[2021-11-15 11:39] LABS: Glucose,Whole Blood 182 mg/dL (75-99)
[2021-11-15] MEDS: VANCOMYCIN 2,500 MG in SODIUM CHLORIDE 0.9% 500 ML 500 ML IVPB SCH (11:50)
[2021-11-15] MEDS: CEFEPIME 2 GM in SODIUM CHLORIDE 0.9% 100 ML IVPB SCH ×2 (12:07→20:30)
--- NOTE | 2021-11-15 13:49 | P.PN ---
Subjective Progress Note Date: 11/15/21 This is a 70-year-old gentleman with medical history of morbid obesity, sleep apnea chronic back pain, lumbar fracture, diabetes, hypertension, hyperlipidemia and multiple other medical issues directed to the ER from primary care physician's office related to right lower extremity wound with purulent drain age-present 2 weeks-not responding to Bactrim, bilateral lower extremity cellulitis with significant redness, edema, dull aching pain. Afebrile, normal WBC. Hemoglobin 17.4, platelets 219. BUN 39, creatinine 1.16, blood sugars 213. Denies chest pain, palpitations or shortness of breath. 11-14-21 scheduled for debridement today with vascular surgery. Wound and blood cultures pending .Obtained on antibiotics of vancomycin as per ID. Renal function stable. Blood sugars better controlled. Denies any chest pain, palpitations or shortness of breath. Oxygen requirements decreased to 3 L maint aining O2 sats in the 90s. 11/15/2021 Status post debridement, tolerated procedure well. Afebrile. Sitting up in chair, eating breakfast, no nausea vomiting or diarrhea. Denies cough or congestion. Denies chest pain, palpitations or shortness of breath. Preliminary wound cultures reporting rare gram-negative bacilli. IV antibiotics adjusted to Maxipime as per ID. Objective - Vital Signs Vital signs: Vital Signs Temp 98.2 F 11/15/21 07:26 Pulse 68 11/15/21 07:26 Resp 20 11/15/21 07:26 BP 125/70 11/15/21 07:26 Pulse Ox 90 L 11/15/21 07:26 Intake & Output 11/14/21 11/15/21 11/15/21 18:59 06:59 18:59 Intake Total 620 240 Output Total 1455 Balance -835 240 Weight 179.169 kg Intake: IV 500 Oral 120 240 Output: Urine 1450 Estimated Blood Loss 5 - Exam PHYSICAL EXAM: VITAL SIGNS: As above GENERAL: Alert and oriented 3, Sitting up in bed, in no acute distress HEENT: Conjunctivae normal. eyes normal. Oral mucosa moist NECK: Supple, No JVD. CARDIOVASCULAR: S1, S2 regular. No murmur RESPIRATION: Breath sounds diminished in the bases. No rhonchi or crackles. No bronchial breathing. ABDOMEN: Soft, nontender . No guarding. no masses palpable. No ascites, No hepatosplenomegaly.Bowel sounds heard. LEGS: Bilateral lower extremites with stasis dermatitis, right lower medial extremity dressing clean dry and intact, positive tenderness.Pos. pulses. NERVOUS SYSTEM: Cranial N 2-12 grossly normal. Moves all 4 limbs. No focal deficits. Strength and sensation grossly intact. Skin: Warm and dry, no rash Microbiology 11/12/21 19:11 Blood Blood Culture - Preliminary No Growth after 48 hours 11/12/21 18:50 Blood Blood Culture - Preliminary No Growth after 48 hours 11/12/21 19:11 Leg - Right Gram Stain - Preliminary 11/12/21 19:11 Leg - Right Wound Culture - Preliminary Gram Neg Bacilli - Labs CBC & Chem 7: 11/15/21 08:00 11/15/21 08:00 Labs: Abnormal Lab Results - Last 24 Hours (Table) 11/14/21 11/14/21 11/14/21 Range/Units 15:30 17:42 20:32 Hgb (13.0-17.5) gm/dL Hct (39.0-53.0) % Lymphocytes # (1.0-4.8) k/uL Carbon Dioxide (22-30) mmol/L BUN (9-20) mg/dL Glucose (74-99) mg/dL POC Glucose (mg/dL) 167 H 158 H 265 H (75-99) mg/dL 11/15/21 11/15/21 11/15/21 Range/Units 07:17 08:00 08:00 Hgb 17.6 H (13.0-17.5) gm/dL Hct 54.1 H (39.0-53.0) % Lymphocytes # 0.7 L (1.0-4.8) k/uL Carbon Dioxide 31 H (22-30) mmol/L BUN 35 H (9-20) mg/dL Glucose 177 H (74-99) mg/dL POC Glucose (mg/dL) 152 H (75-99) mg/dL 11/15/21 Range/Units 11:37 Hgb (13.0-17.5) gm/dL Hct (39.0-53.0) % Lymphocytes # (1.0-4.8) k/uL Carbon Dioxide (22-30) mmol/L BUN (9-20) mg/dL Glucose (74-99) mg/dL POC Glucose (mg/dL) 182 H (75-99) mg/dL Microbiology - Last 24 Hours (Table) 11/12/21 19:11 Blood Culture - Preliminary Blood No Growth after 48 hours 11/12/21 18:50 Blood Culture - Preliminary Blood No Growth after 48 hours 11/12/21 19:11 Gram Stain - Preliminary Leg - Right Wound Culture - Preliminary Gram Neg Bacilli Assessment and Plan Assessment: Bilateral lower lower extremity cellulitis, right lower extr. ulcer, in a patient with peripheral vascular disease, venous insufficiency, failed outpatient treatment. Status post debridement. Preliminary wound cultures reporting rare gram-negative bacilli. Diabetes mellitus type 2, uncontrolled, hyperglycemia CAD Hypertension Hyperlipidemia Degenerative joint disease Chronic back pain, chronic L1 compression fracture, multiple levels of degenerative disc disease, spondylosis and mild thoracolumbar scoliosis Morbid obesity, BMI 56.7 Sleep apnea Hospital course: Continue on current medication regime ,monitoring and symptomatic treatment. Wound care. IV antibiotics further adjusted to Maxipime as mentioned above per ID Debridement pending. Maintain tight blood sugar control. Cleared by vascular surgery for discharge. Discharge planning in progress pending finalized blood cultures, final DC recommendations and clearance per infectious disease. The impression and plan of care has been dictated as directed. : I performed a history and examination of this patient, discussed the same with the dictator. I agree with the dictator's note ,documented as a scribe. Any additional findings or plans will be noted.
[2021-11-15] MEDS: IBUPROFEN 400 MG TAB PO PRN (16:43)
[2021-11-15 17:08] LABS: Glucose,Whole Blood 185 mg/dL (75-99)
[2021-11-15 20:10] LABS: Glucose,Whole Blood 184 mg/dL (75-99)
[2021-11-15] MEDS: ATORVASTATIN 40 MG TAB PO SCH (20:31)
--- NOTE | 2021-11-15 23:49 | P.PN ---
Subjective Progress Note Date: 11/14/21 Principal diagnosis: Right lower extremity wound and cellulitis Patient is a 71 year old male presenting to the hospital with the bilateral wrists and swelling with a wound to the right lower extremity nonhealing from ruptured blister failing outpatient oral Bactrim DS therapy On today's evaluation that is 11/14/2021, the patient denies having any fever or chills, the patient is breathing comfortably denies any chest pain or shortness of breath or cough no abdominal pain or any worsening pain to the lower extremity Objective - Vital Signs Vital signs: Vital Signs Temp 97.7 F 11/14/21 08:42 Pulse 69 11/14/21 08:42 Resp 18 11/14/21 08:42 BP 129/82 11/14/21 08:42 Pulse Ox 94 L 11/14/21 08:42 Intake & Output 11/13/21 11/14/21 11/14/21 18:59 06:59 18:59 Intake Total 118 Output Total 850 600 Balance -732 -600 Intake: Oral 118 Output: Urine 850 600 Other: # Voids 1 2 - Exam GENERAL DESCRIPTION: An elderly male lying in bed in no distress RESPIRATORY SYSTEM: Unlabored breathing , decreased breath sounds at bases HEART: S1 S2 regular rate and rhythm , ABDOMEN: Soft , no tenderness EXTREMITIES: Right leg wound is currently dressed no drainage on the dressing - Labs CBC & Chem 7: 11/15/21 08:00 11/15/21 08:00 Labs: Abnormal Lab Results - Last 24 Hours (Table) 11/12/21 11/13/21 11/13/21 Range/Units 19:11 12:21 17:43 BUN (9-20) mg/dL Glucose (74-99) mg/dL POC Glucose (mg/dL) 218 H 231 H (75-99) mg/dL Hemoglobin A1c 9.3 H (0.0-6.0) % 11/13/21 11/14/21 11/14/21 Range/Units 20:55 06:31 07:38 BUN 35 H (9-20) mg/dL Glucose 164 H (74-99) mg/dL POC Glucose (mg/dL) 208 H 150 H (75-99) mg/dL Hemoglobin A1c (0.0-6.0) % Microbiology - Last 24 Hours (Table) 11/12/21 19:11 Blood Culture - Preliminary Blood No Growth after 24 hours 11/12/21 18:50 Blood Culture - Preliminary Blood No Growth after 24 hours 11/12/21 19:11 Gram Stain - Preliminary Leg - Right Wound Culture - Preliminary Assessment and Plan (1) Leg ulcer Current Visit: Yes Status: Acute Code(s): L97.909 - NON-PRS CHRONIC ULC UNSP PRT OF UNSP LOW LEG W UNSP SEVERITY SNOMED Code(s): 15744827 (2) Left leg cellulitis Current Visit: No Status: Acute Code(s): L03.116 - CELLULITIS OF LEFT LOWER LIMB SNOMED Code(s): 735866138 Plan: 1patient presented to hospital with bilateral lower extremity cellulitis right leg greater than left in this patient with evidence of fluid overload and cellulitis and not responding to the outpatient Bactrim DS more likely because of the burden of disease. 2vancomycin pharmacy to dose target trough of 15 while watching kidney function and vancomycin trough closely 3waiting for surgical debridement of the wound and deep cultures this afternoon Time with Patient: Less than 30
--- NOTE | 2021-11-15 23:50 | P.PN ---
Subjective Progress Note Date: 11/15/21 Principal diagnosis: Right lower extremity wound and cellulitis Patient is a 71 year old male presenting to the hospital with the bilateral wrists and swelling with a wound to the right lower extremity nonhealing from ruptured blister failing outpatient oral Bactrim DS therapy, patient is status post surgical debridement of his right lower extremity wound on 11/14/2021 On today's evaluation that is 11/15/2021, the patient remains to be afebrile, the patient is breathing comfortably the patient denies any chest pain or shortness of breath or cough no abdominal pain or any worsening pain to the lower extremity Objective - Vital Signs Vital signs: Vital Signs Temp 98.2 F 11/15/21 07:26 Pulse 68 11/15/21 07:26 Resp 20 11/15/21 07:26 BP 125/70 11/15/21 07:26 Pulse Ox 90 L 11/15/21 07:26 Intake & Output 11/14/21 11/15/21 11/15/21 18:59 06:59 18:59 Intake Total 620 240 Output Total 1455 Balance -835 240 Weight 179.169 kg Intake: IV 500 Oral 120 240 Output: Urine 1450 Estimated Blood Loss 5 - Exam GENERAL DESCRIPTION: An elderly male lying in bed in no distress RESPIRATORY SYSTEM: Unlabored breathing , decreased breath sounds at bases HEART: S1 S2 regular rate and rhythm , ABDOMEN: Soft , no tenderness EXTREMITIES: Right leg wound is currently dressed no drainage on the dressing - Labs CBC & Chem 7: 11/15/21 08:00 11/15/21 08:00 Labs: Abnormal Lab Results - Last 24 Hours (Table) 11/14/21 11/14/21 11/14/21 Range/Units 12:32 15:30 17:42 Hgb (13.0-17.5) gm/dL Hct (39.0-53.0) % Lymphocytes # (1.0-4.8) k/uL Carbon Dioxide (22-30) mmol/L BUN (9-20) mg/dL Glucose (74-99) mg/dL POC Glucose (mg/dL) 166 H 167 H 158 H (75-99) mg/dL 11/14/21 11/15/21 11/15/21 Range/Units 20:32 07:17 08:00 Hgb 17.6 H (13.0-17.5) gm/dL Hct 54.1 H (39.0-53.0) % Lymphocytes # 0.7 L (1.0-4.8) k/uL Carbon Dioxide (22-30) mmol/L BUN (9-20) mg/dL Glucose (74-99) mg/dL POC Glucose (mg/dL) 265 H 152 H (75-99) mg/dL 11/15/21 Range/Units 08:00 Hgb (13.0-17.5) gm/dL Hct (39.0-53.0) % Lymphocytes # (1.0-4.8) k/uL Carbon Dioxide 31 H (22-30) mmol/L BUN 35 H (9-20) mg/dL Glucose 177 H (74-99) mg/dL POC Glucose (mg/dL) (75-99) mg/dL Microbiology - Last 24 Hours (Table) 11/12/21 19:11 Blood Culture - Preliminary Blood No Growth after 48 hours 11/12/21 18:50 Blood Culture - Preliminary Blood No Growth after 48 hours 11/12/21 19:11 Gram Stain - Preliminary Leg - Right Wound Culture - Preliminary Gram Neg Bacilli Assessment and Plan (1) Leg ulcer Current Visit: Yes Status: Acute Code(s): L97.909 - NON-PRS CHRONIC ULC UNSP PRT OF UNSP LOW LEG W UNSP SEVERITY SNOMED Code(s): 50105930 (2) Left leg cellulitis Current Visit: No Status: Acute Code(s): L03.116 - CELLULITIS OF LEFT LOWER LIMB SNOMED Code(s): 510303875 Plan: 1patient presented to hospital with bilateral lower extremity cellulitis right leg greater than left in this patient with evidence of fluid overload and cellulitis and not responding to the outpatient Bactrim DS more likely because of the burden of disease. 2patient is status post surgical debridement of the wound and deep cultures 3-initial cultures are now showing gram-negative bacilli vancomycin discontinued cefepime has been added, discharge antibiotic on the basis of culture Time with Patient: Less than 30
[2021-11-16] MEDS: CEFEPIME 2 GM in SODIUM CHLORIDE 0.9% 100 ML IVPB SCH ×2 (02:50→09:11)
[2021-11-16] MEDS: IBUPROFEN 400 MG TAB PO PRN (03:07)
[2021-11-16] MEDS ORDERED: INSULIN DETEMIR (LEVEMIR) 100 UNIT/ML SYR SQ SCH (07:00)
[2021-11-16 07:16] LABS: Glucose,Whole Blood 219 mg/dL (75-99)
[2021-11-16 07:44] VITALS: RESP 18
--- NOTE | 2021-11-16 08:22 | P.PN ---
Subjective Progress Note Date: 11/16/21 The patient is seen and examined status post op day #2 for right lower extremity debridement. Overall patient is doing well. He is afebrile. Objective - Vital Signs Vital signs: Vital Signs Temp 98 F 11/16/21 07:43 Pulse 68 11/16/21 07:43 Resp 18 11/16/21 07:43 BP 142/86 11/16/21 07:43 Pulse Ox 95 11/16/21 07:43 Intake & Output 11/15/21 11/16/21 11/16/21 18:59 06:59 18:59 Intake Total 480 Output Total 600 Balance 480 -600 Intake: Oral 480 Output: Urine 600 Other: # Voids 0 - Exam General appearance: The patient is alert, oriented, appears in no acute distress. Morbidly obese. HET: Head is normocephalic and atraumatic. Abdomen: Soft, nontender, nondistended. Extremities: Bilateral lower extremity edema with venous stasis. Redness to bilateral lower extremities. Right lower extremity ulcer s/p debridement with pi nk tissue, no eschar. Positive pedal pulses bilaterally. Neurological: No focal deficits. Strength and sensation are grossly intact. - Labs CBC & Chem 7: 11/15/21 08:00 11/16/21 06:54 Labs: Abnormal Lab Results - Last 24 Hours (Table) 11/15/21 11/15/21 11/15/21 Range/Units 08:00 08:00 11:37 Hgb 17.6 H (13.0-17.5) gm/dL Hct 54.1 H (39.0-53.0) % Lymphocytes # 0.7 L (1.0-4.8) k/uL Carbon Dioxide 31 H (22-30) mmol/L BUN 35 H (9-20) mg/dL Glucose 177 H (74-99) mg/dL POC Glucose (mg/dL) 182 H (75-99) mg/dL 11/15/21 11/15/21 11/16/21 Range/Units 17:04 20:08 07:15 Hgb (13.0-17.5) gm/dL Hct (39.0-53.0) % Lymphocytes # (1.0-4.8) k/uL Carbon Dioxide (22-30) mmol/L BUN (9-20) mg/dL Glucose (74-99) mg/dL POC Glucose (mg/dL) 185 H 184 H 219 H (75-99) mg/dL Microbiology - Last 24 Hours (Table) 11/12/21 19:11 Blood Culture - Preliminary Blood No Growth after 72 hours 11/12/21 18:50 Blood Culture - Preliminary Blood No Growth after 72 hours 11/12/21 19:11 Gram Stain - Final Leg - Right Wound Culture - Final Pseudomonas aeruginosa Assessment and Plan Assessment: 1. Right lower extremity diabetic ulcer status post debridement 2. Venous stasis/insufficiency 3. Diabetes mellitus 4. Morbidly obese Plan: 1. Recommend elevation of lower extremities 2. Continue dressing changes per recommendations from infectious disease 3. Discuss with patient recommend weight loss, compression stockings for appropriate size (script given for compression stockings) Thank you for this consultation, we will sign off at this time. The patient is cleared from vascular surgery for discharge The impression and plan of care has been dictated as directed. I performed a history and examination of this patient, discussed the same with the dictator. I agree with the dictator's note ,documented as a scribe. Any additional findings or plans will be noted.
[2021-11-16] MEDS ORDERED: VANCOMYCIN 2,500 MG in SODIUM CHLORIDE 0.9% 500 ML 500 ML IVPB SCH (09:00)
[2021-11-16] MEDS: INSULIN ASPART (NovoLOG) 100 UNIT/ML VIAL SQ SCH ×4 (09:11→16:32)
[2021-11-16] MEDS: lisinopriL 20 MG TAB PO SCH (09:12)
[2021-11-16] MEDS: PANTOPRAZOLE 40 MG TABLET PO SCH (09:12)
[2021-11-16] MEDS: CHLORTHALIDONE 25 MG TAB PO SCH (09:13)
[2021-11-16] MEDS: glipiZIDE 10 MG TAB PO SCH (09:13)
[2021-11-16] MEDS: atenoloL 50 MG TAB PO SCH (09:13)
[2021-11-16] MEDS: NON FORMULARY DRUG (Canagliflozin [Invokana] 300 MG Tablet) PO SCH (09:15)
[2021-11-16] MEDS: HEPARIN SODIUM,PORCINE/PF 5,000 UNIT/0.5 ML SYRINGE SQ SCH ×2 (09:15→16:31)
--- NOTE | 2021-11-16 10:39 | P.DS ---
Providers Date of admission: 11/14/21 16:17 Expected date of discharge: 11/16/21 Attending physician: Darren Juarez Consults: 11/12/21 20:12 Consult Physician Routine Consulting Provider: Piedad Nieves Consult Reason/Comments: Right leg ulcer cellulitis failed Outpatient treatment Do you want consulting provider notified?: Yes 11/12/21 20:13 Consult Physician Routine Consulting Provider: Wendy Cedeno Consult Reason/Comments: Venous insufficiency bilateral lower extremities Do you want consulting provider notified?: Yes Primary care physician: Darren Juarez [facility] Course: Final Diagnoses: Bilateral lower lower extremity cellulitis, right lower extr. ulcer, in a patient with peripheral vascular disease, venous insufficiency, failed outpatient treatment. Status post debridement. Wound cultures reporting Pseudomonas aeruginosa. Diabetes mellitus type 2, uncontrolled, hyperglycemia CAD Hypertension Hyperlipidemia Degenerative joint disease Chronic back pain, chronic L1 compression fracture, multiple levels of degenerative disc disease, spondylosis and mild thoracolumbar scoliosis Morbid obesity, BMI 56.7 Sleep apnea, reevaluate outpatient Atelectasis Hospital course: This is a 70-year-old gentleman with medical history of morbid obesity, sleep apnea chronic back pain, lumbar fracture, diabetes, hypertension, hyperlipidemia and multiple other medical issues directed to the ER from primary care physician's office related to right lower extremity wound with purulent drainage-present 2 weeks-not responding to Bactrim, bilateral lower extremity cellulitis with significant redness, edema, dull aching pain. Afebrile, normal WBC. Hemoglobin 17.4, platelets 219. BUN 39, creatinine 1.16, blood sugars 213. Denies chest pain, palpitations or shortness of breath. 11-14-21 scheduled for debridement today with vascular surgery. Wound and blood cultures pending .Obtained on antibiotics of vancomycin as per ID. Renal function stable. Blood sugars better controlled. Denies any chest pain, palpitations or shortness of breath. Oxygen requirements decreased to 3 L maintaining O2 sats in the 90s. Status post debridement, tolerated procedure well. Afebrile. Sitting up in chair, eating breakfast, no nausea vomiting or diarrhea. Denies cough or congestion. Denies chest pain, palpitations or shortness of breath. Preliminary wound cultures reporting rare gram-negative bacilli. IV antibiotics adjusted to Maxipime as per ID. Wound culture final is reporting pseudomonas aeruginosa, resistant to quinolones. Afebrile, normal WBC. Patient has significant sleep apnea, reported unable go to where to full CPAP mask, claustrophobic, so he never obtained one. Discussed new less constraining ones available now, patient is willing to revisit sleep study- outpatient-to be arranged per PCP(requiring oxygen when he is sleeping.) Denies chest pain, palpitations or shortness of breath. Denies cough or congestion. Denies lightheadedness, dizziness or focal deficits. Patient will be discharged home today in a stable condition pending final DC recommendations and clearance per infectious disease. The impression and plan of care has been dictated as directed. : I performed a history and examination of this patient, discussed the same with the dictator. I agree with the dictator's note ,documented as a scribe. Any additional findings or plans will be noted. Patient Condition at Discharge: Stable Plan - Discharge Summary New Discharge Prescriptions: New Pantoprazole [Protonix] 40 mg PO DAILY #30 tab Acetaminophen Tab [Tylenol] 650 mg PO Q6HR PRN tab PRN Reason: Mild Pain Or Fever > 100.5 Continue glipiZIDE XL [Glucotrol XL] 10 mg PO BID Enalapril Maleate [Vasotec] 20 mg PO BID Canagliflozin [Invokana] 300 mg PO DAILY Atenolol/Chlorthalidone [Atenolol/Chlorthalidone 50-25] 1 tab PO DAILY metFORMIN HCL ER [Glucophage XR] 1,000 mg PO BID Insulin Aspart [NovoLOG Flexpen] 30 - 60 units SQ ACHS Rosuvastatin [Crestor] 20 mg PO HS Changed Ibuprofen [Motrin] 400 mg PO Q6H PRN #0 PRN Reason: Pain No Action Sulfamethox-Tmp 800-160Mg [Bactrim DS 800-160 mg] 1 tab PO BID Discharge Medication List Atenolol/Chlorthalidone [Atenolol/Chlorthalidone 50-25] 1 tab PO DAILY 09/13/17 [History] Canagliflozin [Invokana] 300 mg PO DAILY 09/13/17 [History] Enalapril Maleate [Vasotec] 20 mg PO BID 09/13/17 [History] glipiZIDE XL [Glucotrol XL] 10 mg PO BID 09/13/17 [History] metFORMIN HCL ER [Glucophage XR] 1,000 mg PO BID 09/14/17 [History] Insulin Aspart [NovoLOG Flexpen] 30 - 60 units SQ ACHS 10/06/18 [History] Rosuvastatin [Crestor] 20 mg PO HS 04/12/20 [History] Sulfamethox-Tmp 800-160Mg [Bactrim DS 800-160 mg] 1 tab PO BID 11/12/21 [History] Acetaminophen Tab [Tylenol] 650 mg PO Q6HR PRN tab 11/15/21 [Rx] Ibuprofen [Motrin] 400 mg PO Q6H PRN #0 11/15/21 [Rx] Pantoprazole [Protonix] 40 mg PO DAILY #30 tab 11/15/21 [Rx] Follow up Appointment(s)/Referral(s): Darren Juarez DO [Primary Care Provider] - 3 Days Wendy Cedeno DO [STAFF PHYSICIAN] - 2 Weeks Activity/Diet/Wound Care/Special Instructions: OP sleep Study
[2021-11-16 12:16] LABS: Glucose,Whole Blood 209 mg/dL (75-99)
[2021-11-16 13:43] VITALS: BP 128/72; PULSE 69; TEMP 98.3
--- NOTE | 2021-11-16 16:06 | P.PN ---
Subjective Progress Note Date: 11/16/21 Principal diagnosis: Right lower extremity wound and cellulitis Patient is a 71 year old male presenting to the hospital with the bilateral wrists and swelling with a wound to the right lower extremity nonhealing from ruptured blister failing outpatient oral Bactrim DS therapy, patient is status post surgical debridement of his right lower extremity wound on 11/14/2021 On today's evaluation that is 11/16/2021, the patient denies any fever or any chills, the patient is breathing comfortably the patient denies any chest pain or shortness of breath or cough no abdominal pain, the patient pain to the lower extremity has decreased in intensity Objective - Vital Signs Vital signs: Vital Signs Temp 98 F 11/16/21 07:43 Pulse 87 11/16/21 09:44 Resp 18 11/16/21 08:38 BP 142/86 11/16/21 07:43 Pulse Ox 90 L 11/16/21 09:44 Intake & Output 11/15/21 11/16/21 11/16/21 18:59 06:59 18:59 Intake Total 480 100 Output Total 600 Balance 480 -600 100 Intake: Oral 480 100 Output: Urine 600 Other: # Voids 0 - Exam GENERAL DESCRIPTION: An elderly male lying in bed in no distress RESPIRATORY SYSTEM: Unlabored breathing , decreased breath sounds at bases HEART: S1 S2 regular rate and rhythm , ABDOMEN: Soft , no tenderness EXTREMITIES: Right leg wound is currently dressed no drainage on the dressing - Labs CBC & Chem 7: 11/15/21 08:00 11/16/21 06:54 Labs: Abnormal Lab Results - Last 24 Hours (Table) 11/15/21 11/15/21 11/16/21 Range/Units 17:04 20:08 07:15 POC Glucose (mg/dL) 185 H 184 H 219 H (75-99) mg/dL Microbiology - Last 24 Hours (Table) 11/12/21 19:11 Blood Culture - Preliminary Blood No Growth after 72 hours 11/12/21 18:50 Blood Culture - Preliminary Blood No Growth after 72 hours 11/12/21 19:11 Gram Stain - Final Leg - Right Wound Culture - Final Pseudomonas aeruginosa Assessment and Plan (1) Leg ulcer Current Visit: Yes Status: Acute Code(s): L97.909 - NON-PRS CHRONIC ULC UNSP PRT OF UNSP LOW LEG W UNSP SEVERITY SNOMED Code(s): 57100036 (2) Left leg cellulitis Current Visit: No Status: Acute Code(s): L03.116 - CELLULITIS OF LEFT LOWER LIMB SNOMED Code(s): 137528099 Plan: 1patient presented to hospital with bilateral lower extremity cellulitis right leg greater than left in this patient with evidence of fluid overload and cellulitis and not responding to the outpatient Bactrim DS more likely because of the burden of disease. 2patient is status post surgical debridement of the wound and deep cultures 3-initial cultures has been finalized with pseudomonas aeruginosa that is resistant to Cipro, will get a midline and plan for total of 2 week course of IV cefepime 2 g every 8 hours local care to continue per vascular surgery, and a close outpatient follow-up Time with Patient: Less than 30
--- NOTE | 2021-11-26 12:56 | P.OP ---
Date of Procedure: 11/19/21 Description of Procedure: Procedure: Sharp excisional debridement right lower extremity to subcutaneous tissues measuring 5.8 x 6 x 0.2 cm Preoperative diagnosis right lower extremity diabetic ulceration, venous stasis ulceration Postoperative diagnosis: Same Surgeon: Wilian Anesthesia: Monitored anesthesia care EBL less than 10 cc Procedure in detail: The patient is a 71-year-old male with significant past medical history who presented to the hospital with worsening right lower extremity pain and found to have an infected right lower extremity wound from venous stasis as well as complicated by his diabetes. It was found a culture positive for Pseudomonas therefore it was decided he would benefit from surgical debridement as it was too tender to do at the bedside. During the procedure the patient was made a full code. This was discussed with the patient and his at the bedside he seemingly understood and were willing to proceed as such. Patient was taken to the operative suite and placed in supine position. The right lower extremities prepped and draped in usual sterile fashion. A pre procedural timeout performed, all parties were in agreement. A surgical scrub brush was utilized and the fibrinous tissue was excised. A curette was used to remove any further overlying slough. This is debrided down to healthy appearing granulation tissue. The area was then cleansed and a compression dressing was placed. Patient was transferred to recovery in stable condition having tolerated the procedure well.
== END 2021-11-16 16:58 | disposition home health service (06) | DRG 264 ==
LOC: EC 17:25 → 6NMEDSUR 19:11 → OBSVTOIN 11-14 16:17
PROVIDERS: ADMIT Family Medicine; ATTEND Family Medicine
PROC: 0JBN0ZZ Excision of Right Lower Leg Subcutaneous Tissue and Fascia, Open Approach (ICD-10-PCS; principal; 2021-11-14 14:20)
PROC: 05HC33Z Insertion of Infusion Device into Left Basilic Vein, Percutaneous Approach (ICD-10-PCS; 2021-11-16 12:30)
DX: E11.51 Type 2 diabetes mellitus with diabetic peripheral angiopathy without gangrene (principal); L03.115 Cellulitis of right lower limb; L03.116 Cellulitis of left lower limb; Z68.43 Body mass index [BMI] 50.0-59.9, adult; L97.819 Non-pressure chronic ulcer of other part of right lower leg with unspecified severity; Z16.23 Resistance to quinolones and fluoroquinolones; J98.11 Atelectasis; I83.018 Varicose veins of right lower extremity with ulcer other part of lower leg; M41.85 Other forms of scoliosis, thoracolumbar region; E11.622 Type 2 diabetes mellitus with other skin ulcer; B96.5 Pseudomonas (aeruginosa) (mallei) (pseudomallei) as the cause of diseases classified elsewhere; E66.01 Morbid (severe) obesity due to excess calories; E11.65 Type 2 diabetes mellitus with hyperglycemia; Z79.4 Long term (current) use of insulin; E78.5 Hyperlipidemia, unspecified; I10 Essential (primary) hypertension; I25.10 Atherosclerotic heart disease of native coronary artery without angina pectoris; G47.30 Sleep apnea, unspecified; G89.29 Other chronic pain; M48.56XD Collapsed vertebra, not elsewhere classified, lumbar region, subsequent encounter for fracture with routine healing; M51.35 Other intervertebral disc degeneration, thoracolumbar region; M47.9 Spondylosis, unspecified; F40.240 Claustrophobia; Z79.84 Long term (current) use of oral hypoglycemic drugs; Z79.899 Other long term (current) drug therapy; Z90.49 Acquired absence of other specified parts of digestive tract; Z87.19 Personal history of other diseases of the digestive system; Z87.39 Personal history of other diseases of the musculoskeletal system and connective tissue; Z98.890 Other specified postprocedural states; Z71.3 Dietary counseling and surveillance; Z80.9 Family history of malignant neoplasm, unspecified
CPT/HCPCS: 36410; 36415; 71046; 76937; 80048; 80053; 80202; 82565; 83036; 85025; 87040; 87070; 87077; 87186; 87205; 96365; 96375; 99284

== ENCOUNTER 2022-01-08 15:32 | Observation (INO) | payer MEDICARE ==
--- NOTE | 2022-01-09 01:00 | ED ---
General Adult HPI - General Chief complaint: Extremity Problem,Nontraumatic Stated complaint: Cellulitis Left Leg Time Seen by Provider: 01/09/22 00:21 Source: patient, family, RN notes reviewed Mode of arrival: ambulatory - History of Present Illness Initial comments: 71-year-old male presents to the emergency department for evaluation of pain and swelling to the left lower extremity. Patient states he tripped on Friday and fell causing abrasions on the left george. Reports increased pain, redness, and swelling since injury. Patient states he went to the foot doctor today and was told to come to the ER for an IV antibiotic. Reports recent hospitalization for cellulitis of the right lower extremity. Denies fever, chills, headache, dizziness, chest pain, shortness of breath, abdominal pain, nausea, vomiting, diarrhea, or dysuria. - Related Data Home Medications Medication Instructions Recorded Confirmed Atenolol/Chlorthalidone 1 tab PO BID 09/13/17 01/09/22 [Atenolol/Chlorthalidone 50-25] Canagliflozin [Invokana] 300 mg PO DAILY 09/13/17 01/09/22 Enalapril Maleate [Vasotec] 20 mg PO BID 09/13/17 01/09/22 glipiZIDE XL [Glucotrol XL] 10 mg PO BID 09/13/17 01/09/22 metFORMIN HCL ER [Glucophage XR] 1,000 mg PO BID 09/14/17 01/09/22 Insulin Aspart [NovoLOG Flexpen] 30 - 60 units SQ ACHS 10/06/18 01/09/22 Rosuvastatin [Crestor] 20 mg PO HS 04/12/20 01/09/22 Previous Rx's Medication Instructions Recorded Acetaminophen Tab [Tylenol] 650 mg PO Q6HR PRN tab 11/15/21 Ibuprofen [Motrin] 400 mg PO Q6H PRN #0 11/15/21 Pantoprazole [Protonix] 40 mg PO DAILY #30 tab 11/15/21 Allergies Allergy/AdvReac Type Severity Reaction Status Date / Time No Known Allergies Allergy Verified 01/09/22 12:43 Review of Systems ROS Statement: Those systems with pertinent positive or pertinent negative responses have been documented in the HPI. ROS Other: All systems not noted in ROS Statement are negative. Past Medical History Past Medical History: Diabetes Mellitus, Hyperlipidemia, Hypertension, Sleep Apnea/CPAP/BIPAP History of Any Multi-Drug Resistant Organisms: None Reported Past Surgical History: Appendectomy, Orthopedic Surgery Past Anesthesia/Blood Transfusion Reactions: No Reported Reaction Past Psychological History: No Psychological Hx Reported Smoking Status: Never smoker Past Alcohol Use History: Rare Past Drug Use History: None Reported - Past Family History Father Family Medical History: Cancer Brother(s) Family Medical History: Cancer Mother Family Medical History: Myocardial Infarction ([place]) Additional Family Medical History / Comment(s): Mother at 62 yrs of [place] General Exam Limitations: no limitations (Well-developed, well-nourished male in no acute distress initial temperature 98.0, pulse 84, respirations 20, blood pressure 138/88, pulse ox to 92% on room air.) General appearance: alert, in no apparent distress Head exam: Present: normocephalic Eye exam: Present: normal appearance, PERRL, EOMI, periorbital swelling (Contusion noted left periorbital region from fall 4 days ago). Absent: scleral icterus, conjunctival injection Neck exam: Present: normal inspection. Absent: tenderness, meningismus, lymphadenopathy Respiratory exam: Present: normal lung sounds bilaterally. Absent: respiratory distress, wheezes, rales, rhonchi, stridor, chest wall tenderness Cardiovascular Exam: Present: regular rate, normal rhythm, normal heart sounds. Absent: systolic murmur, diastolic murmur, rubs, gallop, clicks GI/Abdominal exam: Present: soft, normal bowel sounds. Absent: distended, tenderness, guarding, rebound, rigid Left Lower Leg exam: Present: full ROM, tenderness (tenderness upon palpation left lateral aspect lower leg), swelling, abrasion (three open areas sustained in fall), erythema Neurovascular tendon exam: Present: no vascular compromise. Absent: pulse deficit, abnormal cap refill, motor deficit, sensory deficit, tendon deficit Neurological exam: Present: alert, oriented X3, CN II-XII intact Psychiatric exam: Present: normal affect, normal mood Skin exam: Present: warm, dry Course Vital Signs 01/08/22 01/09/22 01/09/22 15:38 01:00 06:00 Temperature 98 F 97.7 F Pulse Rate 84 67 70 Respiratory 20 18 18 Rate Blood Pressure 138/88 137/75 125/52 O2 Sat by Pulse 92 L 92 L 95 Oximetry 04/27/22 10:30 Temperature 98 F Pulse Rate 82 Respiratory 20 Rate Blood Pressure 142/79 O2 Sat by Pulse 91 L Oximetry Medical Decision Making - Medical Decision Making This is a pleasant 71-year-old male with a past medical history of type 2 diabetes, hypertension, and recent pseudomonas infection in the right lower extremity presents to the emergency department for evaluation of suspected left lower extremity cellulitis. Upon exam, patient is well-appearing and in no acute distress. He does have moderate amount of erythema and edema in the left lower leg. There are 3 open wounds with minimal drainage. +2 pedal pulses. Laboratory studies were reviewed and are unremarkablen (K 5.9, hemolyzed sample). Patient was given a dose of Cefepime and will be admitted for further evaluation and treatment. This patient's care was discussed with my attending, Dr. Mcclain. - Lab Data Result diagrams: 01/09/22 01:04 01/09/22 01:04 Lab Results 01/09/22 01/09/22 Range/Units 01:04 01:04 WBC 6.7 (3.8-10.6) k/uL RBC 5.40 (4.30-5.90) m/uL Hgb 16.6 (13.0-17.5) gm/dL Hct 49.8 (39.0-53.0) % MCV 92.2 (80.0-100.0) fL MCH 30.7 (25.0-35.0) pg MCHC 33.3 (31.0-37.0) g/dL RDW 13.9 (11.5-15.5) % Plt Count 238 (150-450) k/uL MPV 7.7 Neutrophils % 63 % Lymphocytes % 19 % Monocytes % 8 % Eosinophils % 6 % Basophils % 1 % Neutrophils # 4.3 (1.3-7.7) k/uL Lymphocytes # 1.3 (1.0-4.8) k/uL Monocytes # 0.5 (0-1.0) k/uL Eosinophils # 0.4 (0-0.7) k/uL Basophils # 0.1 (0-0.2) k/uL Sodium 140 (137-145) mmol/L Potassium 5.9 H (3.5-5.1) mmol/L Chloride 101 (98-107) mmol/L Carbon Dioxide 31 H (22-30) mmol/L Anion Gap 8 mmol/L BUN 38 H (9-20) mg/dL Creatinine 0.91 (0.66-1.25) mg/dL Est GFR (CKD-EPI)AfAm >90 (>60 ml/min/1.73 sqM) Est GFR (CKD-EPI)NonAf 86 (>60 ml/min/1.73 sqM) Glucose 166 H (74-99) mg/dL Calcium 9.1 (8.4-10.2) mg/dL Total Bilirubin 1.4 H (0.2-1.3) mg/dL AST 51 (17-59) U/L ALT 20 (4-49) U/L Alkaline Phosphatase 64 (38-126) U/L Total Protein 8.3 H (6.3-8.2) g/dL Albumin 4.4 (3.5-5.0) g/dL Disposition Clinical Impression: Cellulitis of left lower extremity, Failure of outpatient treatment Disposition: ADMITTED IP TO THIS [facility] Condition: Serious Decision Date: 01/09/22 Decision Time: 03:30
[2022-01-09 01:32] LABS: Basophils # (A) 0.1 k/uL (0-0.2); Basophils % (A) 1 %; Eosinophils # (A) 0.4 k/uL (0-0.7); Eosinophils % (A) 6 %; HCT 49.8 % (39.0-53.0); HGB 16.6 gm/dL (13.0-17.5); Lymphocytes # (A) 1.3 k/uL (1.0-4.8); Lymphocytes % (A) 19 %; MCH 30.7 pg (25.0-35.0); MCHC 33.3 g/dL (31.0-37.0); MCV 92.2 fL (80.0-100.0); Mean Platelet Volume 7.7; Monocytes # (A) 0.5 k/uL (0-1.0); Monocytes % (A) 8 %; Neutrophils # (A) 4.3 k/uL (1.3-7.7); Neutrophils % (A) 63 %; Platelet Count 238 k/uL (150-450); RDW 13.9 % (11.5-15.5); WBC 6.7 k/uL (3.8-10.6)
[2022-01-09 01:48] LABS: ALT 20 U/L (4-49); AST 51 U/L (17-59); African American GFR (CKD) >90 (>60 ml/min/1.73 sqM); Albumin 4.4 g/dL (3.5-5.0); Alkaline Phosphatase 64 U/L (38-126); Anion Gap 8 mmol/L; Blood Urea Nitrogen 38 mg/dL (9-20); Calcium 9.1 mg/dL (8.4-10.2); Carbon Dioxide 31 mmol/L (22-30); Chloride 101 mmol/L (98-107); Glucose 166 mg/dL (74-99); Non-African American GFR(CKD) 86 (>60 ml/min/1.73 sqM); Sodium 140 mmol/L (137-145); Total Bilirubin 1.4 mg/dL (0.2-1.3); Total Protein 8.3 g/dL (6.3-8.2)
[2022-01-09 02:17] LABS: Potassium 5.9 mmol/L (3.5-5.1)
[2022-01-09] MEDS ORDERED: CEFEPIME 2 GM in SODIUM CHLORIDE 0.9% 100 ML IVPB STA (03:26)
[2022-01-09] MEDS ORDERED: IBUPROFEN 400 MG TAB PO PRN ×2 (03:53→21:20)
[2022-01-09] MEDS ORDERED: ONDANSETRON 4 MG/2 ML VIAL IVP PRN (03:53)
[2022-01-09] MEDS ORDERED: NALOXONE 0.4 MG/ML 1 ML VIAL IV PRN (03:53)
[2022-01-09] MEDS ORDERED: traMADol 50 MG TAB PO PRN (03:53)
[2022-01-09 12:39] LABS: Glucose,Whole Blood 230 mg/dL (75-99)
[2022-01-09] MEDS: INSULIN ASPART (NovoLOG) 100 UNIT/ML VIAL SQ SCH ×3 (13:08→22:10)
--- NOTE | 2022-01-09 16:54 | P.HPIM ---
History of Present Illness H&P Date: 01/09/22 This is a 70-year-old gentleman with recent admission with bilateral x-rays cellulitis right lower extr. ulcer ,status post debridement with wound cultures reporting Pseudomonas aeruginosa.medical history of morbid obesity, sleep apnea chronic back pain, lumbar fracture, diabetes, hypertension, hyperlipidemia and multiple other medical issues presenting CER with left lower extremity worsening edema, pain and redness, status post fall. He states he tripped on the nightstand, hit his left side of the face- ecchymosis noted around the left eye, then scraped his left lower leg on his oxygen tank-states that it was not put away in its normal place. Right leg appears much better had been on antibiotic actually for bilateral lower extremity cellulitis with Pseudomonas on antibiotics at home per infectious disease. Reports he wants to return his oxygen as he now sats 90-97% on room air at home, PCP states his last O2 sat in the office was 88%. Patient currently maintaining O2 sats in the low 90s on room air. Denies chest pain, palpitations or increasing shortness of breath. Denies lightheadedness dizziness or focal deficits. Denies syncope. Denies nausea vomiting diarrhea. Afebrile, normal WBC. Potassium hemolyzed. BUN 38, creatinine 0.91. Blood sugars 160s to 200s. Cefepime initiated.. Review of Systems ROS Statement: Those systems with pertinent positive or pertinent negative responses have been documented in the HPI. ROS Other: All systems not noted in ROS Statement are negative. Past Medical History Past Medical History: Cancer, Diabetes Mellitus, Hyperlipidemia, Hypertension, Osteoarthritis (OA), Pneumonia, Skin Disorder, Sleep Apnea/CPAP/BIPAP, Vascular Disorder Additional Past Medical History / Comment(s): Pt recently admitted to [facility] on 11/14/21 with bilateral lower extremity cellulitis, R lower leg ulcer, low oximeter/discharged with home oxygen which he states he no longer wears much. Other hx: NIDDM type II, bilateral eye diabetic retinopathy with eye injections, prostate cancer with radiation treatments, pt denies COPD/emphysema, YOSI but did not tolerate device, DDD, chronic back pain/L1 compression fracture, arthritis in multiple joints, PVD, venous insufficiency, past bilateral lower leg cellulitis, benign colon polyps History of Any Multi-Drug Resistant Organisms: None Reported Past Surgical History: Appendectomy, Joint Replacement, Orthopedic Surgery Additional Past Surgical History / Comment(s): 11/14/21 R lower leg ulcer debrid ement, total L knee arthroplasty, bilateral carpal tunnel releases, L shoulder surgery, colonoscopy/polypectomy, bilateral cataract removals/lens implants, bilateral eyelid surgery/skin removed bilateral lower lid and top R lid, prostate biopsy. Past Anesthesia/Blood Transfusion Reactions: No Reported Reaction Smoking Status: Former smoker - Past Family History Father Family Medical History: Cancer Additional Family Medical History / Comment(s): Lung and prostate cancer Brother(s) Family Medical History: Cancer Mother Family Medical History: Myocardial Infarction ([place]) Additional Family Medical History / Comment(s): Mother at 62 yrs of [place] Medications and Allergies Home Medications Medication Instructions Recorded Confirmed Type Atenolol/Chlorthalidone 1 tab PO BID 09/13/17 01/09/22 History [Atenolol/Chlorthalidone 50-25] Canagliflozin [Invokana] 300 mg PO DAILY 09/13/17 01/09/22 History Enalapril Maleate [Vasotec] 20 mg PO BID 09/13/17 01/09/22 History glipiZIDE XL [Glucotrol XL] 10 mg PO BID 09/13/17 01/09/22 History metFORMIN HCL ER [Glucophage XR] 1,000 mg PO BID 09/14/17 01/09/22 History Insulin Aspart [NovoLOG Flexpen] 30 - 60 units SQ ACHS 10/06/18 01/09/22 History Rosuvastatin [Crestor] 20 mg PO HS 04/12/20 01/09/22 History Acetaminophen Tab [Tylenol] 650 mg PO Q6HR PRN tab 11/15/21 01/09/22 Rx Ibuprofen [Motrin] 400 mg PO Q6H PRN #0 11/15/21 01/09/22 Rx Pantoprazole [Protonix] 40 mg PO DAILY #30 tab 11/15/21 01/09/22 Rx Allergies Allergy/AdvReac Type Severity Reaction Status Date / Time No Known Allergies Allergy Verified 01/09/22 12:43 Physical Exam Vitals: Vital Signs Temp Pulse Pulse Resp BP BP Pulse Ox 01/09/22 14:28 97.7 F 73 18 150/70 93 L 01/09/22 10:30 98 F 82 20 142/79 91 L 01/09/22 06:00 97.7 F 70 18 125/52 95 01/09/22 01:00 67 18 137/75 92 L Intake and Output 01/09/22 01/09/22 01/09/22 06:59 14:59 22:59 Intake Total 237 Balance 237 Intake: Oral 237 Other: Voiding Method Toilet Weight 176.901 kg - Exam PHYSICAL EXAM: VITAL SIGNS: As above GENERAL: Alert and oriented 3, Sitting up in bed, in no acute distress HEENT: Conjunctivae normal. eyes normal. Left Periorbital ecchymosis, Oral mucosa moist NECK: Supple, No JVD. CARDIOVASCULAR: S1, S2 regular. No murmur RESPIRATION: Breath sounds diminished in the bases. No rhonchi or crackles. No bronchial breathing. ABDOMEN: Soft, nontender . No guarding. no masses palpable. No ascites, No hepatosplenomegaly.Bowel sounds heard. LEGS: Bilateral lower extremites with stasis dermatitis, left lower extremity reddened, erythema, edema, tender with abrasions 3 with minimal drainage ,positive tenderness.Pos. pulses. NERVOUS SYSTEM: Cranial N 2-12 grossly normal. Moves all 4 limbs. No focal deficits. Strength and sensation grossly intact. Skin: Warm and dry, no rash Results CBC & Chem 7: 01/09/22 01:04 01/09/22 01:04 Labs: Abnormal Lab Results - Last 24 Hours (Table) 01/09/22 01/09/22 Range/Units 01:04 12:36 Potassium 5.9 H (3.5-5.1) mmol/L Carbon Dioxide 31 H (22-30) mmol/L BUN 38 H (9-20) mg/dL Glucose 166 H (74-99) mg/dL POC Glucose (mg/dL) 230 H (75-99) mg/dL Total Bilirubin 1.4 H (0.2-1.3) mg/dL Total Protein 8.3 H (6.3-8.2) g/dL Microbiology - Last 24 Hours (Table) 01/09/22 01:04 Wound Culture - Preliminary Leg - Left Thrombosis Risk Factor Assmnt - Choose All That Apply Any of the Below Risk Factors Present?: Yes Each Factor Represents 1 point: Obesity (BMI >25) Other Risk Factors: Yes Each Risk Factor Represents 2 Points: Age 61-74 years, Malignancy Other congenital or acquired thrombophilia - If yes, enter type in comment: No Thrombosis Risk Factor Assessment Total Risk Factor Score: 5 Thrombosis Risk Factor Assessment Level: High Risk Assessment and Plan Assessment: Left lower extremity cellulitis, in a patient with peripheral vascular disease, venous insufficiency, trauma induced secondary to fall. Recent admission with right lower extr. ulcer ,status post debridement with wound cultures reporting Pseudomonas aeruginosa. Left periorbital ecchymosis, secondary to prior fall Diabetes mellitus type 2, uncontrolled, hyperglycemia CAD Hypertension Hyperlipidemia Degenerative joint disease Chronic back pain, chronic L1 compression fracture, multiple levels of degenerative disc disease, spondylosis and mild thoracolumbar scoliosis Morbid obesity, BMI 56 Sleep apnea, reevaluate outpatient outpatient Atelectasis Plan: Continue on current medication regime ,monitoring and symptomatic treatment. Cefepime initiated. Antibiotics as wound care as per ID. PT/OT consulted Further orders to follow. The impression and plan of care has been dictated as directed. : I performed a history and examination of this patient, discussed the same with the dictator. I agree with the dictator's note ,documented as a scribe. Any additional findings or plans will be noted.
[2022-01-09 17:08] LABS: Glucose,Whole Blood 149 mg/dL (75-99)
[2022-01-09] MEDS: CEFEPIME 2 GM in SODIUM CHLORIDE 0.9% 100 ML IVPB SCH (17:45)
[2022-01-09 20:32] LABS: Glucose,Whole Blood 254 mg/dL (75-99)
[2022-01-09] MEDS ORDERED: ACETAMINOPHEN TAB 325 MG TAB PO PRN (21:20)
[2022-01-09] MEDS: CHLORTHALIDONE 25 MG TAB PO SCH (22:10)
[2022-01-09] MEDS: lisinopriL 20 MG TAB PO SCH (22:10)
[2022-01-09] MEDS: ATORVASTATIN 40 MG TAB PO SCH (22:11)
[2022-01-09] MEDS: glipiZIDE 10 MG TAB PO SCH (22:11)
[2022-01-09] MEDS: atenoloL 50 MG TAB PO SCH (22:11)
[2022-01-10] MEDS: CEFEPIME 2 GM in SODIUM CHLORIDE 0.9% 100 ML IVPB SCH ×4 (00:11→23:53)
--- NOTE | 2022-01-10 00:45 | P.CONS ---
History of Present Illness - Reason for Consult Consult date: 01/09/22 Left lower extremity cellulitis Requesting physician: Annie Koch - Chief Complaint Left leg swelling and redness x few days - History of Present Illness Patient is a 71-year-old male with multiple comorbidities in this patient presented to hospital with increasing pain swelling redness of the left lower extremity, patient did have a fall on Friday night that is 3 days before presentation to the hospital patient did have a laceration to the left leg subs equently patient started having increasing swelling redness of the left leg and pain patient is having the pain to the left leg to be more of a sharp intensity is about 6 out of 10 no radiation with associated swelling redness and minimal drainage, patient on present hospital was afebrile no fever have been called subsequently treated him normal white count creatinine was normal liver exams are normal he did have local wound cultures obtained the patient was started on cefepime admitted to hospital infectious disease was consulted for further management of antibiotic therapy Review of Systems Positive point has been mentioned in the HPI rest of the systems are negative Past Medical History Past Medical History: Cancer, Diabetes Mellitus, Hyperlipidemia, Hypertension, Osteoarthritis (OA), Pneumonia, Skin Disorder, Sleep Apnea/CPAP/BIPAP, Vascular Disorder Additional Past Medical History / Comment(s): Pt recently admitted to [facility] on 11/14/21 with bilateral lower extremity cellulitis, R lower leg ulcer, low oximeter/discharged with home oxygen which he states he no longer wears much. Other hx: NIDDM type II, bilateral eye diabetic retinopathy with eye injections, prostate cancer with radiation treatments, pt denies COPD/emphysema, YOSI but did not tolerate device, DDD, chronic back pain/L1 compression fracture, arthritis in multiple joints, PVD, venous insufficiency, past bilateral lower leg cellulitis, benign colon polyps History of Any Multi-Drug Resistant Organisms: None Reported Past Surgical History: Appendectomy, Joint Replacement, Orthopedic Surgery Additional Past Surgical History / Comment(s): 11/14/21 R lower leg ulcer debridement, total L knee arthroplasty, bilateral carpal tunnel releases, L s [place] surgery, colonoscopy/polypectomy, bilateral cataract removals/lens implants, bilateral eyelid surgery/skin removed bilateral lower lid and top R lid, prostate biopsy. Past Anesthesia/Blood Transfusion Reactions: No Reported Reaction Smoking Status: Former smoker - Past Family History Father Family Medical History: Cancer Additional Family Medical History / Comment(s): Lung and prostate cancer Brother(s) Family Medical History: Cancer Mother Family Medical History: Myocardial Infarction ([place]) Additional Family Medical History / Comment(s): Mother at 62 yrs of [place] Medications and Allergies Home Medications Medication Instructions Recorded Confirmed Type Atenolol/Chlorthalidone 1 tab PO BID 09/13/17 01/09/22 History [Atenolol/Chlorthalidone 50-25] Canagliflozin [Invokana] 300 mg PO DAILY 09/13/17 01/09/22 History Enalapril Maleate [Vasotec] 20 mg PO BID 09/13/17 01/09/22 History glipiZIDE XL [Glucotrol XL] 10 mg PO BID 09/13/17 01/09/22 History metFORMIN HCL ER [Glucophage XR] 1,000 mg PO BID 09/14/17 01/09/22 History Insulin Aspart [NovoLOG Flexpen] 30 - 60 units SQ ACHS 10/06/18 01/09/22 History Rosuvastatin [Crestor] 20 mg PO HS 04/12/20 01/09/22 History Acetaminophen Tab [Tylenol] 650 mg PO Q6HR PRN tab 11/15/21 01/09/22 Rx Ibuprofen [Motrin] 400 mg PO Q6H PRN #0 11/15/21 01/09/22 Rx Pantoprazole [Protonix] 40 mg PO DAILY #30 tab 11/15/21 01/09/22 Rx Cephalexin [Keflex] 500 mg PO Q6HR 10 Days #40 cap 01/11/22 Rx Allergies Allergy/AdvReac Type Severity Reaction Status Date / Time No Known Allergies Allergy Verified 01/09/22 12:43 Physical Exam Vitals: Vital Signs Temp Pulse Pulse Resp BP BP Pulse Ox 01/09/22 14:28 97.7 F 73 18 150/70 93 L 01/09/22 10:30 98 F 82 20 142/79 91 L 01/09/22 06:00 97.7 F 70 18 125/52 95 01/09/22 01:00 67 18 137/75 92 L 01/08/22 15:38 98 F 84 20 138/88 92 L Intake and Output 01/09/22 01/09/22 01/09/22 06:59 14:59 22:59 Intake Total 237 Balance 237 Intake: Oral 237 Other: Voiding Method Toilet Weight 176.901 kg GENERAL DESCRIPTION: An elderly male lying in bed, no distress. No tachypnea or accessory muscle of respiration use. HEENT: Shows Pallor , no scleral icterus. Oral mucous membrane is dry. No pharyngeal erythema or thrush NECK: Trachea central, no thyromegaly. LUNGS: Unlabored breathing. Clear to auscultation anteriorly. No wheeze or crackle. HEART: S1, S2, regular rate and rhythm. No loud murmur ABDOMEN: Soft, no tenderness , guarding or rigidity, no organomegaly EXTREMITIES: Left leg swelling and redness and warmth to touch SKIN: No rash, no masses palpable. NEUROLOGICAL: The patient is awake, alert, oriented x3, mood and affect normal. Results CBC & Chem 7: 01/11/22 05:12 01/11/22 05:12 Labs: Abnormal Lab Results - Last 24 Hours (Table) 01/09/22 01/09/22 Range/Units 01:04 12:36 Potassium 5.9 H (3.5-5.1) mmol/L Carbon Dioxide 31 H (22-30) mmol/L BUN 38 H (9-20) mg/dL Glucose 166 H (74-99) mg/dL POC Glucose (mg/dL) 230 H (75-99) mg/dL Total Bilirubin 1.4 H (0.2-1.3) mg/dL Total Protein 8.3 H (6.3-8.2) g/dL Microbiology - Last 24 Hours (Table) 01/09/22 01:04 Wound Culture - Preliminary Leg - Left Assessment and Plan (1) Left leg cellulitis Status: Acute Code(s): L03.116 - CELLULITIS OF LEFT LOWER LIMB SNOMED Code(s): 178072366 Plan: 1patient with acute left lower extremity cellulitis in this patient who did have diffuse swelling redness started with the trauma more likely from gram- positive skin ken underlying gram-negative infection less likely but not entirely excluded. 2local wound care to the left leg wound with the Aquacel silver dressing to the open area followed by Bernardino wrap from just above the toe to below the knee. 3continue the cefepime 2 g every 8 while waiting for the culture to finalize. We will follow on clinical condition and cultures to further adjust medication if needed Thank you for this consultation will follow this patient along with you Time with Patient: Greater than 30
[2022-01-10 07:05] LABS: Glucose,Whole Blood 225 mg/dL (75-99)
[2022-01-10] MEDS: lisinopriL 20 MG TAB PO SCH ×2 (08:37→21:03)
[2022-01-10] MEDS: INSULIN ASPART (NovoLOG) 100 UNIT/ML VIAL SQ SCH ×8 (08:37→21:13)
[2022-01-10] MEDS: CHLORTHALIDONE 25 MG TAB PO SCH ×2 (08:38→21:04)
[2022-01-10] MEDS: PANTOPRAZOLE 40 MG TABLET PO SCH (08:38)
[2022-01-10] MEDS: glipiZIDE 10 MG TAB PO SCH ×2 (08:39→21:13)
[2022-01-10] MEDS: atenoloL 50 MG TAB PO SCH ×2 (08:40→21:03)
[2022-01-10] MEDS ORDERED: metFORMIN 500 MG TAB PO SCH (09:00)
[2022-01-10] MEDS: NON FORMULARY DRUG (Canagliflozin [Invokana] 300 MG Tablet) PO SCH (09:23)
[2022-01-10 10:11] LABS: Basophils # (A) 0.07 X 10*3/uL (0.00-0.10); Eosinophils # (A) 0.33 X 10*3/uL (0.04-0.35); Eosinophils % (A) 4.5 %; HCT 51.9 % (39.6-50.0); HGB 16.2 g/dL (13.0-17.0); Immature Grans, Automated 0.8 %; Lymphocytes # (A) 1.36 X 10*3/uL (0.90-5.00); Lymphocytes % (A) 18.5 %; MCH 28.5 pg (27.0-32.0); MCHC 31.2 g/dL (32.0-37.0); MCV 91.4 fL (80.0-97.0); Mean Platelet Volume 10.7 fL (9.5-12.2); Monocytes # (A) 0.81 X 10*3/uL (0.20-1.00); NRBC Per 100 WBC 0 /100 WBCS (0.0-0.0); Neutrophils # (A) 4.73 X 10*3/uL (1.80-7.70); Neutrophils % (A) 64.2 %; Platelet Count 244 X 10*3/uL (140-440); RBC 5.68 X 10*6/uL (4.40-5.60); RDW 14.1 % (11.5-14.5); WBC 7.36 X 10*3/uL (4.50-10.00)
[2022-01-10 10:20] LABS: African American GFR (CKD) 88.6 (60.0-200.0); Anion Gap 15.1 mmol/L (10.00-18.00); BUN/Creat Ratio 36.6 Ratio (12.00-20.00); Blood Urea Nitrogen 36.6 mg/dL (9.0-27.0); Calcium 9.4 mg/dL (8.7-10.3); Carbon Dioxide 23.9 mmol/L (20.0-27.5); Non-African American GFR(CKD) 76.5 (60.0-200.0); Potassium 4.9 mmol/L (3.5-5.5)
[2022-01-10 11:56] LABS: Glucose,Whole Blood 225 mg/dL (75-99)
--- NOTE | 2022-01-10 15:06 | P.PN ---
Subjective Progress Note Date: 01/10/22 01/09/2022 This is a 70-year-old gentleman with recent admission with bilateral x-rays cellulitis right lower extr. ulcer ,status post debridement with wound cultures reporting Pseudomonas aeruginosa.medical history of morbid obesity, sleep apnea chronic back pain, lumbar fracture, diabetes, hypertension, hyperlipidemia and multiple other medical issues presenting CER with left lower extremity worsening edema, pain and redness, status post fall. He states he tripped on the nightstand, hit his left side of the face- ecchymosis noted around the left eye, then scraped his left lower leg on his oxygen tank-states that it was not put away in its normal place. Right leg appears much better had been on antibiotic actually for bilateral lower extremity cellulitis with Pseudomonas on antibiotics at home per infectious disease. Reports he wants to return his oxygen as he now sats 90-97% on room air at home, PCP states his last O2 sat in the office was 88%. Patient currently maintaining O2 sats in the low 90s on room air. Denies chest pain, palpitations or increasing shortness of breath. Denies lightheadedness dizziness or focal deficits. Denies syncope. Denies nausea vomiting diarrhea. Afebrile, normal WBC. Potassium hemolyzed. BUN 38, creatinine 0.91. Blood sugars 160s to 200s. Cefepime initiated.. 01/10/2022 continues on cefepime as per infectious disease with local wound care of left lower extremity with Silvadene/Bernardino wrap. Maintaining O2 sats in the mid 90s on 2 L nasal cannula, staff reports patient decreases his O2 sat with exertion. Afebrile, normal WBC. Wound cultures pending. BUN 36.6, creatinine 1. Blood sugars uncontrolled. Denies chest pain, palpitations. Objective - Vital Signs Vital signs: Vital Signs Temp 97.4 F L 01/10/22 14:30 Pulse 63 01/10/22 14:30 Resp 16 01/10/22 14:30 BP 111/62 01/10/22 14:30 Pulse Ox 95 01/10/22 14:30 Intake & Output 01/09/22 01/10/22 01/10/22 18:59 06:59 18:59 Intake Total 475 473 Balance 475 473 Weight 176.901 kg Intake: Oral 475 473 Other: Voiding Method Toilet # Voids 2 1 - Exam - Exam PHYSICAL EXAM: VITAL SIGNS: As above GENERAL: Alert and oriented 3, Sitting up in bed, in no acute distress HEENT: Conjunctivae normal. eyes normal. Left Periorbital ecchymosis, Oral mucosa moist NECK: Supple, No JVD. CARDIOVASCULAR: S1, S2 regular. No murmur RESPIRATION: Breath sounds diminished in the bases. No rhonchi or crackles. No bronchial breathing. ABDOMEN: Soft, nontender . No guarding. no masses palpable. No ascites, No hepatosplenomegaly.Bowel sounds heard. LEGS: Bilateral lower extremites with stasis dermatitis, left lower extremity Bernardino wrap dressing clean dry and intact. NERVOUS SYSTEM: Cranial N 2-12 grossly normal. Moves all 4 limbs. No focal deficits. Strength and sensation grossly intact. Skin: Warm and dry, no rash - Labs CBC & Chem 7: 01/10/22 06:01 01/10/22 06:01 Labs: Abnormal Lab Results - Last 24 Hours (Table) 01/09/22 01/09/22 01/10/22 Range/Units 17:06 20:31 06:01 RBC 5.68 H (4.40-5.60) X 10*6/uL Hct 51.9 H (39.6-50.0) % MCHC 31.2 L (32.0-37.0) g/dL Immature Gran # 0.06 H (0.00-0.04) X 10*3/uL BUN (9.0-27.0) mg/dL BUN/Creatinine Ratio (12.00-20.00) Ratio Glucose (70-110) mg/dL POC Glucose (mg/dL) 149 H 254 H (75-99) mg/dL 01/10/22 01/10/22 01/10/22 Range/Units 06:01 07:04 11:54 RBC (4.40-5.60) X 10*6/uL Hct (39.6-50.0) % MCHC (32.0-37.0) g/dL Immature Gran # (0.00-0.04) X 10*3/uL BUN 36.6 H (9.0-27.0) mg/dL BUN/Creatinine Ratio 36.60 H (12.00-20.00) Ratio Glucose 261 H (70-110) mg/dL POC Glucose (mg/dL) 225 H 225 H (75-99) mg/dL Microbiology - Last 24 Hours (Table) 01/09/22 01:04 Gram Stain - Preliminary Leg - Left Wound Culture - Preliminary Assessment and Plan Assessment: Left lower extremity cellulitis, in a patient with peripheral vascular disease, venous insufficiency, trauma induced secondary to fall. Recent admission with right lower extr. ulcer ,status post debridement with wound cultures reporting Pseudomonas aeruginosa. Left periorbital ecchymosis, secondary to prior fall Diabetes mellitus type 2, uncontrolled, hyperglycemia CAD Hypertension Hyperlipidemia Degenerative joint disease Chronic back pain, chronic L1 compression fracture, multiple levels of degenerative disc disease, spondylosis and mild thoracolumbar scoliosis Morbid obesity, BMI 56 Sleep apnea, reevaluate outpatient outpatient Atelectasis Plan: Continue on current medication regime ,monitoring and symptomatic treatment. Cultures pending. Maintain IV Antibiotics as wound care as per ID. Lantus added to med regimen with close monitoring of Accu-Cheks. PT/OT. Close monitoring of renal function, electrolytes with repeat labs ordered for a.m. Further orders to follow. The impression and plan of care has been dictated as directed. : I performed a history and examination of this patient, discussed the same with the dictator. I agree with the dictator's note ,documented as a scribe. Any additional findings or plans will be noted.
[2022-01-10] MEDS: INSULIN DETEMIR (LEVEMIR) 100 UNIT/ML SYR SQ SCH (16:55)
[2022-01-10 17:05] LABS: Glucose,Whole Blood 94 mg/dL (75-99)
[2022-01-10 21:07] LABS: Glucose,Whole Blood 173 mg/dL (75-99)
[2022-01-10] MEDS: ATORVASTATIN 40 MG TAB PO SCH (21:13)
--- NOTE | 2022-01-10 22:37 | P.PN ---
Subjective Progress Note Date: 01/10/22 Principal diagnosis: Left lower extremity cellulitis Patient is a 71 year male presenting to the hospital with fall with laceration to the left leg and secondary cellulitis. On today's evaluation that is 01/10/2022, the patient denies having any fever or rigors, the patient is breathing comfortably no chest pain shortness of cough no abdominal pain discomfort in the left leg has decreased in intensity Objective - Vital Signs Vital signs: Vital Signs Temp 97.4 F L 01/10/22 14:30 Pulse 63 01/10/22 14:30 Resp 16 01/10/22 14:30 BP 111/62 01/10/22 14:30 Pulse Ox 95 01/10/22 14:30 Intake & Output 01/09/22 01/10/22 01/10/22 18:59 06:59 18:59 Intake Total 475 473 Balance 475 473 Weight 176.901 kg Intake: Oral 475 473 Other: Voiding Method Toilet # Voids 2 1 - Exam GENERAL DESCRIPTION: An elderly male lying in bed in no distress RESPIRATORY SYSTEM: Unlabored breathing , decreased breath sounds at bases HEART: S1 S2 regular rate and rhythm , ABDOMEN: Soft , no tenderness EXTREMITIES: Left leg is currently dressed no drainage on the dressing - Labs CBC & Chem 7: 01/10/22 06:01 01/10/22 06:01 Labs: Abnormal Lab Results - Last 24 Hours (Table) 01/09/22 01/09/22 01/10/22 Range/Units 17:06 20:31 06:01 RBC 5.68 H (4.40-5.60) X 10*6/uL Hct 51.9 H (39.6-50.0) % MCHC 31.2 L (32.0-37.0) g/dL Immature Gran # 0.06 H (0.00-0.04) X 10*3/uL BUN (9.0-27.0) mg/dL BUN/Creatinine Ratio (12.00-20.00) Ratio Glucose (70-110) mg/dL POC Glucose (mg/dL) 149 H 254 H (75-99) mg/dL 01/10/22 01/10/22 01/10/22 Range/Units 06:01 07:04 11:54 RBC (4.40-5.60) X 10*6/uL Hct (39.6-50.0) % MCHC (32.0-37.0) g/dL Immature Gran # (0.00-0.04) X 10*3/uL BUN 36.6 H (9.0-27.0) mg/dL BUN/Creatinine Ratio 36.60 H (12.00-20.00) Ratio Glucose 261 H (70-110) mg/dL POC Glucose (mg/dL) 225 H 225 H (75-99) mg/dL Microbiology - Last 24 Hours (Table) 01/09/22 01:04 Gram Stain - Preliminary Leg - Left Wound Culture - Preliminary Assessment and Plan (1) Left leg cellulitis Current Visit: Yes Status: Acute Code(s): L03.116 - CELLULITIS OF LEFT LOWER LIMB SNOMED Code(s): 519440955 Plan: 1patient with acute left lower extremity cellulitis in this patient who did have diffuse swelling redness started with the trauma more likely from gram- positive skin ken underlying gram-negative infection less likely but not entirely excluded. 2local wound care to the left leg wound with the Aquacel silver dressing to the open area followed by Bernardino wrap from just above the toe to below the knee. 3patient continue the cefepime 2 g every 8 while waiting for the culture to finalize. Time with Patient: Less than 30
[2022-01-11 07:31] LABS: Glucose,Whole Blood 192 mg/dL (75-99)
[2022-01-11] MEDS: CEFEPIME 2 GM in SODIUM CHLORIDE 0.9% 100 ML IVPB SCH (07:40)
[2022-01-11] MEDS: INSULIN DETEMIR (LEVEMIR) 100 UNIT/ML SYR SQ SCH (07:40)
[2022-01-11] MEDS: glipiZIDE 10 MG TAB PO SCH (07:41)
[2022-01-11] MEDS: lisinopriL 20 MG TAB PO SCH (07:41)
[2022-01-11] MEDS: PANTOPRAZOLE 40 MG TABLET PO SCH (07:41)
[2022-01-11] MEDS: CHLORTHALIDONE 25 MG TAB PO SCH (07:41)
[2022-01-11] MEDS: atenoloL 50 MG TAB PO SCH (07:42)
[2022-01-11] MEDS: INSULIN ASPART (NovoLOG) 100 UNIT/ML VIAL SQ SCH ×4 (08:43→12:40)
[2022-01-11 08:57] VITALS: BP 124/55; PULSE 73; RESP 18; TEMP 97.9
[2022-01-11 09:32] LABS: Basophils # (A) 0.05 X 10*3/uL (0.00-0.10); Basophils % (A) 0.7 %; Eosinophils # (A) 0.32 X 10*3/uL (0.04-0.35); Eosinophils % (A) 4.2 %; HCT 51.5 % (39.6-50.0); HGB 16.3 g/dL (13.0-17.0); Immature Grans, Automated 0.9 %; Lymphocytes # (A) 1.11 X 10*3/uL (0.90-5.00); Lymphocytes % (A) 14.7 %; MCH 28.8 pg (27.0-32.0); MCHC 31.7 g/dL (32.0-37.0); MCV 91.2 fL (80.0-97.0); Mean Platelet Volume 10.8 fL (9.5-12.2); Monocytes # (A) 0.86 X 10*3/uL (0.20-1.00); Monocytes % (A) 11.4 %; NRBC Per 100 WBC 0 /100 WBCS (0.0-0.0); Neutrophils # (A) 5.15 X 10*3/uL (1.80-7.70); Neutrophils % (A) 68.1 %; Platelet Count 232 X 10*3/uL (140-440); RBC 5.65 X 10*6/uL (4.40-5.60); RDW 14.1 % (11.5-14.5); WBC 7.56 X 10*3/uL (4.50-10.00)
[2022-01-11 09:53] LABS: Anion Gap 12.1 mmol/L (10.00-18.00); BUN/Creat Ratio 41.18 Ratio (12.00-20.00); Blood Urea Nitrogen 45.3 mg/dL (9.0-27.0); Calcium 9.2 mg/dL (8.7-10.3); Carbon Dioxide 25.9 mmol/L (20.0-27.5); Non-African American GFR(CKD) 68.1 (60.0-200.0); Potassium 4.7 mmol/L (3.5-5.5)
[2022-01-11] MEDS: NON FORMULARY DRUG (Canagliflozin [Invokana] 300 MG Tablet) PO SCH (10:40)
--- NOTE | 2022-01-11 11:42 | P.DS ---
Providers Date of admission: 01/10/22 14:49 Expected date of discharge: 01/11/22 Attending physician: Darren Juarez Consults: 01/09/22 03:54 Consult Physician Routine Consulting Provider: Piedad Nieves Consult Reason/Comments: LLE cellulitis, recent h/o pseudomonas Do you want consulting provider notified?: Yes, Notify in am Primary care physician: Darren Juarez Hospital Course: Final Diagnoses: Left lower extremity cellulitis, in a patient with peripheral vascular disease, venous insufficiency, trauma induced secondary to fall. Recent admission with right lower extr. ulcer ,status post debridement with wound cultures reporting Pseudomonas aeruginosa. Gram stain reported rare polymorphonuclear leukocytes, few gram-positive cocci, aerobic culture grew many normal skin ken isolated. Left periorbital ecchymosis, secondary to prior fall Diabetes mellitus type 2, uncontrolled, hyperglycemia CAD Hypertension Hyperlipidemia Degenerative joint disease Chronic back pain, chronic L1 compression fracture, multiple levels of degenerative disc disease, spondylosis and mild thoracolumbar scoliosis Morbid obesity, BMI 56 Sleep apnea, reevaluate outpatient outpatient Atelectasis Hospital course:01/09/2022 This is a 70-year-old gentleman with recent admission with bilateral x-rays cellulitis right lower extr. ulcer ,status post debridement with wound cultures reporting Pseudomonas aeruginosa.medical history of morbid obesity, sleep apnea chronic back pain, lumbar fracture, diabetes, hypertension, hyperlipidemia and multiple other medical issues presenting CER with left lower extremity worsening edema, pain and redness, status post fall. He states he tripped on the nightstand, hit his left side of the face- ecchymosis noted around the left eye, then scraped his left lower leg on his oxygen tank-states that it was not put away in its normal place. Right leg appears much better had been on antibiotic actually for bilateral lower extremity cellulitis with Pseudomonas on antibiotics at home per infectious disease. Reports he wants to return his oxygen as he now sats 90-97% on room air at home, PCP states his last O2 sat in the office was 88%. Patient marline narayanan maintaining O2 sats in the low 90s on room air. Denies chest pain, palpitations or increasing shortness of breath. Denies lightheadedness dizziness or focal deficits. Denies syncope. Denies nausea vomiting diarrhea. Afebrile, normal WBC. Potassium hemolyzed. BUN 38, creatinine 0.91. Blood sugars 160s to 200s. Cefepime initiated.. 01/10/2022 continues on cefepime as per infectious disease with local wound care of left lower extremity with Silvadene/Bernardino wrap. Maintaining O2 sats in the mid 90s on 2 L nasal cannula, staff reports patient decreases his O2 sat with exertion. Afebrile, normal WBC. Wound cultures pending. BUN 36.6, creatinine 1. Blood sugars uncontrolled. Denies chest pain, palpitations. Significant clinical improvement. Afebrile. Patient will be discharged home today in a stable condition with guarded prognosis pending final DC recommendations/antibiotics and clearance per ID. The impression and plan of care has been dictated as directed. : I performed a history and examination of this patient, discussed the same with the dictator. I agree with the dictator's note ,documented as a scribe. Any additional findings or plans will be noted. Microbiology 01/09/22 01:04 Leg - Left Gram Stain - Final 01/09/22 01:04 Leg - Left Wound Culture - Final Patient Condition at Discharge: Stable Plan - Discharge Summary Discharge Rx Participant: No New Discharge Prescriptions: Continue glipiZIDE XL [Glucotrol XL] 10 mg PO BID Enalapril Maleate [Vasotec] 20 mg PO BID Canagliflozin [Invokana] 300 mg PO DAILY Atenolol/Chlorthalidone [Atenolol/Chlorthalidone 50-25] 1 tab PO BID metFORMIN HCL ER [Glucophage XR] 1,000 mg PO BID Insulin Aspart [NovoLOG Flexpen] 30 - 60 units SQ ACHS Rosuvastatin [Crestor] 20 mg PO HS Pantoprazole [Protonix] 40 mg PO DAILY #30 tab Acetaminophen Tab [Tylenol] 650 mg PO Q6HR PRN tab PRN Reason: Mild Pain Or Fever > 100.5 Ibuprofen [Motrin] 400 mg PO Q6H PRN #0 PRN Reason: Pain Discharge Medication List Atenolol/Chlorthalidone [Atenolol/Chlorthalidone 50-25] 1 tab PO BID 09/13/17 [History] Canagliflozin [Invokana] 300 mg PO DAILY 09/13/17 [History] Enalapril Maleate [Vasotec] 20 mg PO BID 09/13/17 [History] glipiZIDE XL [Glucotrol XL] 10 mg PO BID 09/13/17 [History] metFORMIN HCL ER [Glucophage XR] 1,000 mg PO BID 09/14/17 [History] Insulin Aspart [NovoLOG Flexpen] 30 - 60 units SQ ACHS 10/06/18 [History] Rosuvastatin [Crestor] 20 mg PO HS 04/12/20 [History] Acetaminophen Tab [Tylenol] 650 mg PO Q6HR PRN tab 11/15/21 [Rx] Ibuprofen [Motrin] 400 mg PO Q6H PRN #0 11/15/21 [Rx] Pantoprazole [Protonix] 40 mg PO DAILY #30 tab 11/15/21 [Rx] Follow up Appointment(s)/Referral(s): Darren Juarez DO [Primary Care Provider] - 1-2 days [facility], [NON-STAFF] - 1 Week [facility]Infusion [NON-STAFF] - 1 Week Patient Instructions/Handouts: Chest Pain (GEN), Chronic Diarrhea (GEN)
[2022-01-11 12:18] LABS: Glucose,Whole Blood 264 mg/dL (75-99)
--- NOTE | 2022-01-18 14:52 | P.PN ---
Subjective Progress Note Date: 01/11/22 Principal diagnosis: Left lower extremity cellulitis Patient is a 71 year male presenting to the hospital with fall with laceration to the left leg and secondary cellulitis. On today's evaluation that is 01/11/2022, the patient remains to be febrile, the patient is breathing comfortably on room air, the patient denies chest pain shortness of cough no abdominal , the patient pain discomfort in the left leg has decreased in intensity Objective - Vital Signs Vital signs: Vital Signs Temp 97.9 F 01/11/22 07:00 Pulse 73 01/11/22 07:00 Resp 18 01/11/22 07:00 BP 124/55 01/11/22 07:00 Pulse Ox 94 L 01/11/22 07:00 Intake & Output 01/10/22 01/11/22 01/11/22 18:59 06:59 18:59 Intake Total 591 Balance 591 Intake: Oral 591 Other: Voiding Method Toilet Toilet # Voids 1 3 - Exam GENERAL DESCRIPTION: An elderly male lying in bed in no distress RESPIRATORY SYSTEM: Unlabored breathing , decreased breath sounds at bases HEART: S1 S2 regular rate and rhythm , ABDOMEN: Soft , no tenderness EXTREMITIES: Left leg is currently dressed no drainage on the dressing - Labs CBC & Chem 7: 01/11/22 05:12 01/11/22 05:12 Labs: Abnormal Lab Results - Last 24 Hours (Table) 01/10/22 01/11/22 01/11/22 Range/Units 21:05 05:12 05:12 RBC 5.65 H (4.40-5.60) X 10*6/uL Hct 51.5 H (39.6-50.0) % MCHC 31.7 L (32.0-37.0) g/dL Immature Gran # 0.07 H (0.00-0.04) X 10*3/uL BUN 45.3 H (9.0-27.0) mg/dL BUN/Creatinine Ratio 41.18 H (12.00-20.00) Ratio Glucose 253 H (70-110) mg/dL POC Glucose (mg/dL) 173 H (75-99) mg/dL 01/11/22 01/11/22 Range/Units 07:29 12:17 RBC (4.40-5.60) X 10*6/uL Hct (39.6-50.0) % MCHC (32.0-37.0) g/dL Immature Gran # (0.00-0.04) X 10*3/uL BUN (9.0-27.0) mg/dL BUN/Creatinine Ratio (12.00-20.00) Ratio Glucose (70-110) mg/dL POC Glucose (mg/dL) 192 H 264 H (75-99) mg/dL Microbiology - Last 24 Hours (Table) 01/09/22 01:04 Gram Stain - Final Leg - Left Wound Culture - Final Assessment and Plan (1) Left leg cellulitis Status: Acute Code(s): L03.116 - CELLULITIS OF LEFT LOWER LIMB SNOMED Code(s): 603831394 Plan: 1patient with acute left lower extremity cellulitis in this patient who did have diffuse swelling redness started with the trauma more likely from gram- positive skin ken underlying gram-negative infection less likely but not entirely excluded. 2local wound care to the left leg wound with the Aquacel silver dressing to the open area followed by Bernardino wrap from just above the toe to below the knee. 3patient wound culture came back negative he will finish therapy with oral Keflex 500 mg every 8 hours 10 days prescription was sent pharmacy Time with Patient: Less than 30
== END 2022-01-11 14:20 | disposition home health service (06) ==
LOC: EC 15:32 → 6NMEDSUR 01-09 05:49 → OBSVTOIN 01-10 14:49 → INTOOBSV 01-10 14:49 → UNDODISIN 01-11 14:20
PROVIDERS: ADMIT Family Medicine; ATTEND Family Medicine
DX: L03.116 Cellulitis of left lower limb (principal); S81.812A Laceration without foreign body, left lower leg, initial encounter; S00.12XA Contusion of left eyelid and periocular area, initial encounter; E11.51 Type 2 diabetes mellitus with diabetic peripheral angiopathy without gangrene; L03.115 Cellulitis of right lower limb; B96.5 Pseudomonas (aeruginosa) (mallei) (pseudomallei) as the cause of diseases classified elsewhere; E11.622 Type 2 diabetes mellitus with other skin ulcer; L97.919 Non-pressure chronic ulcer of unspecified part of right lower leg with unspecified severity; I10 Essential (primary) hypertension; G47.33 Obstructive sleep apnea (adult) (pediatric); E78.5 Hyperlipidemia, unspecified; M15.9 Polyosteoarthritis, unspecified; E11.319 Type 2 diabetes mellitus with unspecified diabetic retinopathy without macular edema; J98.11 Atelectasis; I25.10 Atherosclerotic heart disease of native coronary artery without angina pectoris; M41.9 Scoliosis, unspecified; E11.65 Type 2 diabetes mellitus with hyperglycemia; G89.29 Other chronic pain; M48.56XA Collapsed vertebra, not elsewhere classified, lumbar region, initial encounter for fracture; M47.9 Spondylosis, unspecified; E66.01 Morbid (severe) obesity due to excess calories; Z68.43 Body mass index [BMI] 50.0-59.9, adult; W01.198A Fall on same level from slipping, tripping and stumbling with subsequent striking against other object, initial encounter; Y92.009 Unspecified place in unspecified non-institutional (private) residence as the place of occurrence of the external cause; Z79.4 Long term (current) use of insulin; Z79.84 Long term (current) use of oral hypoglycemic drugs; Z79.899 Other long term (current) drug therapy; Z90.49 Acquired absence of other specified parts of digestive tract; Z86.010 Personal history of colon polyps; Z98.41 Cataract extraction status, right eye; Z98.42 Cataract extraction status, left eye; Z96.1 Presence of intraocular lens; Z96.652 Presence of left artificial knee joint; Z87.891 Personal history of nicotine dependence; Z92.3 Personal history of irradiation; Z85.46 Personal history of malignant neoplasm of prostate; Z98.890 Other specified postprocedural states; Z82.49 Family history of ischemic heart disease and other diseases of the circulatory system; Z80.42 Family history of malignant neoplasm of prostate; Z80.1 Family history of malignant neoplasm of trachea, bronchus and lung
CPT/HCPCS: 96366 ×3; 96365; 99284; 36415; 97161; 97165; 80053; 80048 ×2; 85025 ×3; 87070; 87205; 83036; G0378 ×3; J0692 ×3

== ENCOUNTER → 2022-08-21 | Outpatient (CLI) | payer MEDICARE ==
--- NOTE | 2022-08-21 15:23 | US ---
LOWER EXTREMITY VENOUS INSUFFICIENCY CLINICAL HISTORY: L97.822 NON-PRESSURE ULCER OF LT LE. Non-healing wounds bilateral lower legs. Diabe maximus Male, 72 years old with history of L97.822 NON-PRESSURE ULCER OF LT LE; SIDE PERFORMED: bilateral 1) Color flow is present and patency is documented in the following vessels. No DVT or SVT is noted . Common Femoral Vein Deep Femoral Vein Femoral Vein Popliteal Vein Proximal Calf Veins Greater Saph Vein Upper Small Saph Vein 2) There is venous reflux noted at the following venous levels: no evidence of reflux IMPRESSION: No evidence of venous insufficiency of the bilateral lower extremity veins. No evidence o f deep vein or superficial vein thrombosis.
== END | disposition home or self-care (01) ==
LOC: RADUSWWP 14:16
PROVIDERS: ATTEND Nurse Practitioner Family
DX: L97.822 Non-pressure chronic ulcer of other part of left lower leg with fat layer exposed (principal); L97.812 Non-pressure chronic ulcer of other part of right lower leg with fat layer exposed; I87.333 Chronic venous hypertension (idiopathic) with ulcer and inflammation of bilateral lower extremity
CPT/HCPCS: 93970

== ENCOUNTER 2023-03-30 15:01 | Emergency (ER) | payer MEDICARE ==
[2023-03-30 15:05] VITALS: BP 154/96; PULSE 79; RESP 20; TEMP 98.1
[2023-03-30] MEDS ORDERED: DIPH,PERTUS(ACELL)TETVAC-LF 0.5 ML VIAL IM ONE (15:25)
[2023-03-30] MEDS ORDERED: MORPHINE SULFATE 4 MG/ML SYRINGE IM STA (15:25)
--- NOTE | 2023-03-30 15:29 | ED ---
Fall HPI - General Chief Complaint: Fall Stated Complaint: Fall; left shoulder pain Time Seen by Provider: 03/30/23 15:15 Source: patient Mode of arrival: ambulatory - History of Present Illness Initial Comments: 73-year-old male presents after a trip and fall off curb onto his left side hitting his shoulder on the concrete. States he also hit his head a little but denies any loss of consciousness. Mom and many blood thinners. States he feels as though its dislocation. Does have a partial left shoulder surgery in the past about [address] Webb. History of obesity, diabetes, osteoarthritis, hypertension, hyperlipidemia and vascular disease. MD Complaint: fall -: hour(s) (2) Fall From: standing When Fall Occurred: 1-3 hours [employer] Fall Witnessed: yes, by family Place Fall Occurred: street Loss of Consciousness: none Prolonged Down Time?: no Symptoms Prior to Fall: none Severity scale (1-10): 8 Context: tripped/slipped Associated Symptoms: denies - Related Data Home Medications Medication Instructions Recorded Confirmed Atenolol/Chlorthalidone 1 tab PO BID 09/13/17 01/09/22 [Atenolol/Chlorthalidone 50-25] Canagliflozin [Invokana] 300 mg PO DAILY 09/13/17 01/09/22 Enalapril Maleate [Vasotec] 20 mg PO BID 09/13/17 01/09/22 glipiZIDE XL [Glucotrol XL] 10 mg PO BID 09/13/17 01/09/22 metFORMIN HCL ER [Glucophage XR] 1,000 mg PO BID 09/14/17 01/09/22 Insulin Aspart [NovoLOG Flexpen] 30 - 60 units SQ ACHS 10/06/18 01/09/22 Rosuvastatin [Crestor] 20 mg PO HS 04/12/20 01/09/22 Previous Rx's Medication Instructions Recorded Acetaminophen Tab [Tylenol] 650 mg PO Q6HR PRN tab 11/15/21 Ibuprofen [Motrin] 400 mg PO Q6H PRN #0 11/15/21 Pantoprazole [Protonix] 40 mg PO DAILY #30 tab 11/15/21 Cephalexin [Keflex] 500 mg PO Q6HR 10 Days #40 cap 01/11/22 HYDROcodone/APAP 7.5-325MG [Galien 1 tab PO Q6HR PRN 3 Days #12 tab 03/30/23 7.5-325] Allergies Allergy/AdvReac Type Severity Reaction Status Date / Time No Known Allergies Allergy Verified 03/30/23 15:05 Review of Systems ROS Statement: Those systems with pertinent positive or pertinent negative responses have been documented in the HPI. ROS Other: All systems not noted in ROS Statement are negative. Past Medical History Past Medical History: Cancer, Diabetes Mellitus, Hyperlipidemia, Hypertension, Osteoarthritis (OA), Pneumonia, Skin Disorder, Sleep Apnea/CPAP/BIPAP, Vascular Disorder Additional Past Medical History / Comment(s): Pt recently admitted to [facility] on 11/14/21 with bilateral lower extremity cellulitis, R lower leg ulcer, low oximeter/discharged with home oxygen which he states he no longer wears much. Other hx: NIDDM type II, bilateral eye diabetic retinopathy with eye injections, prostate cancer with radiation treatments, pt denies COPD/emphysema, YOSI but did not tolerate device, DDD, chronic back pain/L1 compression fracture, arthritis in multiple joints, PVD, venous insufficiency, past bilateral lower leg cellulitis, benign colon polyps History of Any Multi-Drug Resistant Organisms: None Reported Past Surgical History: Appendectomy, Joint Replacement, Orthopedic Surgery Additional Past Surgical History / Comment(s): 11/14/21 R lower leg ulcer debridement, total L knee arthroplasty, bilateral carpal tunnel releases, L shoulder surgery, colonoscopy/polypectomy, bilateral cataract removals/lens implants, bilateral eyelid surgery/skin removed bilateral lower lid and top R lid, prostate biopsy. Past Anesthesia/Blood Transfusion Reactions: No Reported Reaction Past Psychological History: No Psychological Hx Reported Smoking Status: Former smoker - Past Family History Father Family Medical History: Cancer Additional Family Medical History / Comment(s): Lung and prostate cancer Brother(s) Family Medical History: Cancer Mother Family Medical History: Myocardial Infarction ([place]) Additional Family Medical History / Comment(s): Mother at 62 yrs of [place] General Exam Limitations: no limitations General appearance: alert, in no apparent distress Head exam: Present: atraumatic, normocephalic, normal inspection Eye exam: Present: normal appearance. Absent: scleral icterus, conjunctival injection, periorbital swelling Neck exam: Present: full ROM. Absent: tenderness, meningismus Respiratory exam: Absent: respiratory distress, accessory muscle use Cardiovascular Exam: Present: regular rate Left Shoulder Exam: Present: tenderness. Absent: full ROM, swelling, abrasion, laceration, ecchymosis, deformity, crepitus, erythema, tenderness over AC joint Upper Arm exam: Present: swelling. Absent: tenderness, abrasion, laceration, ecchymosis, deformity, erythema Elbow exam: Present: full ROM, abrasion. Absent: tenderness, swelling Forearm Wrist exam: Present: full ROM. Absent: tenderness Hand Wrist exam: Present: full ROM. Absent: tenderness Neuro motor exam: Present: wrist extension intact Neurosensory exam: Present: radial nerve intact, ulnar nerve intact, median nerve intact Vascular: Present: normal capillary refill. Absent: vascular compromise Neurological exam: Present: alert, oriented X3 Psychiatric exam: Present: normal affect, normal mood Skin exam: Present: warm, dry, normal color. Absent: cyanosis, diaphoretic, petechiae, pallor Course Vital Signs 03/30/23 15:02 Temperature 98.1 F Pulse Rate 79 Respiratory 20 Rate Blood Pressure 154/96 O2 Sat by Pulse 91 L Oximetry Medical Decision Making - Medical Decision Making Was pt. sent in by a medical professional or institution (, PA, [employer], urgent care, hospital, or prison...) When possible be specific @ -No Did you speak to anyone other than the patient for history (EMS, parent, family, police, friend...)? What history was obtained from this source @ -No Did you review nursing and triage notes (agree or disagree)? Why? @ -I reviewed and agree with nursing and triage notes Were old charts reviewed (outside hosp., previous admission, EMS record, old EKG, old radiological studies, urgent care reports/EKG's, prison records)? Report findings @ -No old charts were reviewed Differential Diagnosis (chest pain, altered mental status, abdominal pain women, abdominal pain men, vaginal bleeding, weakness, fever, dyspnea, syncope, headache, dizziness, GI bleed, back pain, seizure, CVA, palpatations, mental health, musculoskeletal)? @ -Clavicle fracture, shoulder dislocation, humerus fracture, musculoskeletal pain EKG interpreted by me (3pts min.). @ -n/a X-rays interpreted by me (1pt min.). @ -yes X-ray of the left clavicle interpreted by me shows no osseous abnormality, X-ray of the left shoulder shows an oblique fracture of the proximal humerus. CT interpreted by me (1pt min.). @ -None done U/S interpreted by me (1pt. min.). @ -None done What testing was considered but not performed or refused? (CT, X-rays, U/S, labs)? Why? @ -None What meds were considered but not given or refused? Why? @ -None Did you discuss the management of the patient with other professionals (professionals i.e. , PA, [employer], lab, RT, psych nurse, social work nurse, foreign diplomat, teacher, bomb squad officer, manager case)? Give summary @ -Dr. Jennifer Smith orthopedics recommended sling and discharg, follow-up in the office this week Was smoking cessation discussed for >3mins.? @ -No Was critical care preformed (if so, how long)? @ -No Were there social determinants of health that impacted care today? How? (Homelessness, low income, unemployed, alcoholism, drug addiction, transportation, low edu. Level, literacy, decrease access to med. care, fpc, rehab)? @ -No Was there de-escalation of care discussed even if they declined (Discuss DNR or withdrawal of care, Hospice)? DNR status @ -No What co-morbidities impacted this encounter? (DM, HTN, Smoking, COPD, CAD, Ca ncer, CVA, ARF, Chemo, Hep., AIDS, mental health diagnosis, sleep apnea, morbid obesity)? @ -History of obesity, diabetes, osteoarthritis, hypertension, hyperlipidemia and vascular disease. Was patient admitted / discharged? Hospital course, mention meds given and route, prescriptions, significant lab abnormalities, going to OR and other pertinent info. @ -Discharged 73-year-old male presents after a trip and fall off curb onto his left side hitting his shoulder on the concrete. States he also hit his head a little but denies any loss of consciousness. Mom and many blood thinners. States he feels as though its dislocation. Does have a partial left shoulder surgery in the past about [address] Webb. X-ray of the left clavicle interpreted by me shows no osseous abnormality, X-ray of the left shoulder shows an oblique fracture of the proximal humerus. Radiologist interpretation oblique fracture of proximal humerus extending from the lateral margin of the greater tuberosity down medially to the proximal diaphysis. Inferior margin of the fracture there is lateral displacement up to 3.5 cm. Lesser degree of lateral to along the superior margin of the fracture. There appears to be some soft tissue swelling to the elbow as well. Patient does have full range of motion or elbow. Abrasions noted. Radial, ul tommy and median nerves intact. Sensation intact. Radial pulses present. Capillary refill less than 2 seconds. Pain medication was provided tetanus shot was updated. I did speak with Dr. Smith who recommended sling and pain medication and follow-up with orthopedics this week. Patient was placed in a sling, prescription for Galien was provided. Ultram starter pack given. Patient. Were directed to return with any new or concerning problems including increased pain, pallor or paresthesia. They stated understanding. Case discussed with Dr. Casillas Undiagnosed new problem with uncertain prognosis? @ -No Drug Therapy requiring intensive monitoring for toxicity (Heparin, Nitro, Insulin, Cardizem)? @ -No Were any procedures done? @ -No Diagnosis/symptom? @ -Proximal humerus fracture, fall Acute, or Chronic, or Acute on Chronic? @ -Acute Uncomplicated (without systemic symptoms) or Complicated (systemic symptoms)? @ -Uncomplicated Side effects of treatment? @ -No Exacerbation, Progression, or Severe Exacerbation? @ -No Poses a threat to life or bodily function? How? (Chest pain, [place], [place], pneumonia, PE, COPD, DKA, ARF, appy, cholecystitis, CVA, Diverticulitis, Homicidal, Suicidal, threat to staff... and all critical care pts) @ -No Disposition Clinical Impression: Left humeral fracture, Fall Disposition: HOME SELF-CARE Condition: Stable Instructions (If sedation given, give patient instructions): Fall Prevention (ED), Proximal Humerus Fracture (ED) Additional Instructions: Take Galien as prescribed for pain. Wear sling for comfort. Return to the emergency room with any new or concerning symptoms including increased pain, pallor or numbness. Follow-up with orthopedics this week call tomorrow for an appointment. Prescriptions: HYDROcodone/APAP 7.5-325MG [Galien 7.5-325] 1 tab PO Q6HR PRN 3 Days #12 tab PRN Reason: Pain Is patient prescribed a controlled substance at d/c from ED?: No Referrals: Darren Juarez DO [Primary Care Provider] - 1-2 days Jennifer Smith DO [Doctor of Osteopathic Medicine] - 1-2 days Time of Disposition: 17:09
--- NOTE | 2023-03-30 16:54 | XR ---
EXAMINATION TYPE: XR clavicle 2 views LT, XR humerus 2 views LT, XR shoulder complete 3 views LT DATE OF EXAM: 03/30/2023 COMPARISON: NONE HISTORY: 73-year-old male follow-up on cement with left shoulder pain FINDINGS: Left clavicle: No acute fracture of the clavicle. There is moderate degenerative joint space narrowing at the AC connor nt with subchondral cystic change. Left shoulder: There is an oblique fracture involving the proximal humerus. This appears to exit the greater tuberos ity and courses obliquely down medially to below the surgical neck region within the proximal diaphys is. There is up to 3.5 cm of lateral displacement inferiorly and lesser degree 1.4 cm displacement guevara periorly. Slight lateral angulation. Resurfacing shoulder arthroplasty is noted. No definite fracture extension to the prosthesis. Underlying degenerative change at the glenoid with a eccentric joint sp tato narrowing inferiorly. Left humerus: Soft tissue swelling also suggested at the elbow. The lateral view is suboptimal. No definite additio nal acute fracture is seen. IMPRESSION: 1. Left clavicle: No acute osseous abdomen body seen. 2. Left shoulder: Previous resurfacing left shoulder hemiarthroplasty. There is an oblique fracture o f the proximal humerus extending from the lateral margin of the greater tuberosity down medially to t he proximal diaphysis. At the inferior margin of the fracture, there is lateral displacement up to 3 .5 cm. Lesser degree of lateral displacement along the superior margin of the fracture. 3. Humerus: There appears to be some soft tissue swelling at the elbow as well. However, no obvious a dditional fractures seen. Suboptimal lateral view.
[2023-03-30] MEDS ORDERED: traMADol 50 MG STARTER PACK 3 TAB BTL PO STA (17:11)
== END 2023-03-30 17:39 | disposition home or self-care (01) ==
LOC: EC 15:01
DX: S42.202A Unspecified fracture of upper end of left humerus, initial encounter for closed fracture (principal); S50.312A Abrasion of left elbow, initial encounter; E11.36 Type 2 diabetes mellitus with diabetic cataract; E11.59 Type 2 diabetes mellitus with other circulatory complications; I10 Essential (primary) hypertension; E78.5 Hyperlipidemia, unspecified; M19.90 Unspecified osteoarthritis, unspecified site; E66.9 Obesity, unspecified; Z87.891 Personal history of nicotine dependence; Z79.84 Long term (current) use of oral hypoglycemic drugs; Z79.899 Other long term (current) drug therapy; Z68.43 Body mass index [BMI] 50.0-59.9, adult; W01.198A Fall on same level from slipping, tripping and stumbling with subsequent striking against other object, initial encounter
CPT/HCPCS: 73030; 73000; 73060; 90715; 99284; 96372; 90471; J2270

== ENCOUNTER → 2023-04-01 | Outpatient (CLI) | payer MEDICARE ==
--- NOTE | 2023-04-01 07:45 | CT ---
EXAMINATION TYPE: CT shoulder LT wo con DATE OF EXAM: 04/01/2023 COMPARISON: 03/30/2023 shoulder x-ray HISTORY: left shoulder fx CT DLP: 1430.2 mGycm Automated exposure control for dose reduction was used. Contrast: None Technique: Axial images 3 mm thick sections. Reconstructed images in the coronal and sagittal plane. Three-D reconstructed images were performed on a separate computerized technologist. FINDINGS: Humeral head prosthesis is present. This causes beam hardening artifact in some limitation adjacent. Fracture line appears to extend to the prosthesis stem. Prosthesis appears intact. There is a long oblique fracture extending from the humeral head prosthesis into the proximal diaphys is of the humerus. There is wide diastases of the fracture fragments. The humeral prosthesis articulates with the degenerative glenoid. Acromioclavicular junction has some degenerative change. Scapula appears intact. IMPRESSION: 1. LONG OBLIQUE FRACTURE EXTENDING FROM THE SUPERIOR HUMERUS TO THE MEDIAL PROXIMAL DIAPHYSIS. THIS E XTENDS ADJACENT TO THE STEM OF THE HUMERAL HEAD PROSTHESIS. DIASTASES OF THE FRACTURE FRAGMENTS IS NO DINA.
== END | disposition home or self-care (01) ==
LOC: RADXRMAIN 06:47
PROVIDERS: ATTEND Orthopaedic Surgery Hand Surgery
DX: M97.32XA Periprosthetic fracture around internal prosthetic left shoulder joint, initial encounter (principal); M25.512 Pain in left shoulder

== ENCOUNTER → 2023-11-05 | Outpatient (CLI) | payer MEDICARE ==
[2023-11-05 14:10] VITALS: BP 157/85; PULSE 83; RESP 15; TEMP 97.7
--- NOTE | 2023-11-05 14:50 | P.PAINPG ---
PQRS Measure Charge Sheet Comment: HISTORY OF PRESENT ILLNESS: A 73 yr old malew at side as a referral from Dr Rodriguez presents today w severe and chronic LBP x 1 yr secondary to L1 Compression Fracture, DDD, spondylosis and facet arthropathy without myelopathy for evaluation. Pt states pain level is provoked at 6 /10 in intensity, constant, localized in the lumbar spine, predominantly axial, achy in character w occasional shooting pain towards the R buttock and RLE. Pain is provoked by bending. Pain is alleviated by PT x 2 wks which he is currently in, medications (Tyl), manual massage, repositioning and rest. Oswestry axial pain score at 31. PMH: OA, Prostate CA, NIDDM II, Hyperlipidemia, HTN, COPD/ Emphysema, Skin Disorder, YOSI, PVD PSH: Colonoscopy (2018), RLE Debridement (2021), L1 Compression Fracture, Appendectomy, L Total Knee Arthroplasty, BL CTR, L Shoulder Surgery, BL Cataract Extraction w Lens Implants, BL Blepharoplasty, Prostate Biopsy SH: Former tobacco user, No ETOH abuse, No illicit drug use FH: Fa- Lung & Prostate CA. Bro- CA. Mo- MO/ at age 64. All: See list Meds: See list REVIEW OF ORGAN SYSTEMS: CONSTITUTIONAL: No fevers or chills. No recent weight loss. NEUROLOGICAL: + numbness and tingling along the distal extremities. No seizure disorders or headaches. MUSCULOSKELETAL: + pain PSYCHIATRIC: Denies current depression or suicidal thoughts. Physical Examinations : Constitutional : Cooperative , not in acute distress . Neurologic : Cranial nerve II to XII intact. No focal neurological deficits. Psychiatric : alert & oriented x 3. Matching mood & appropriate affect. Judgment & insight intact. Musculoskeletal : Cervical Spine Motor strength in the deltoid and biceps: Normal right side. Normal Left side Motor strength biceps and the wrist extensors: Normal right side . Normal left side Motor strength in the triceps muscle: Normal right side. Normal left side Deep tendon reflexes: Normal at the biceps. Normal at Brachioradialis. Normal at triceps Vertebral body tenderness to deep palpation over Cervical facet loading test: positive bilaterally Spurling test: positive bilaterally Neck distraction test: positive bilaterally Roberto sign: positive bilaterally Lumbar spine Motor strength lower extremities ,thigh and legs 5/5 Right side , 5/5 Left side Deep tendon reflexes : Normal Knee Jerk. Normal Ankle Jerk Vertebral body tenderness over Gotti Test positive L1- L2 Lumbar facet Loading Test: positive Right / positive Left Range of motion of the lumbar spine Flexion 30 degrees, extension 10 degrees Straight Leg Raise test: Left/ Right positive at degrees Curly test: positive right / positive left. Severe tenderness over the Sacroiliac joint on the Right / Left sides Gaenslen test: positive bilaterally Seated flexion test: positive bilaterally. Sacral spine : Severe tenderness over the Sacroiliac joint: right side / left side Range of motion: Flexion of the lumbar spine <60 degrees Range of motion: Extension of the lumbar spine <20 degrees Gaenslen's Test positive Curly test: positive right side / left side Thigh Thrust Test Sacral Thrust Test Imaging: Lumbar x ray reviewed Assessment/ Plan : L1 Compression Fracture, Lumbar DDD Recommendation of MRI non contrast lumbar spine M51.36 . May need additional testing if clinically indicated. All questions answered. I have spent greater than 30 minutes on patient care today. Dr García was available by phone for the evaluation of this patient. The time was used to review the medical records including relevant urine studies and Prescription history (MAPs), review of the available imaging, evaluation and examination of the patient, coordination of care with the medical staff and if applicable referring physicians, as well as creation of the medical record - Pain Location Bilateral Lower Back Non-Pharmacological Interventions: Physical Therapy Pharmacological Interventions: PRN Medication PQRS Narrative: Smoking Status Never smoker Home Medications: Ambulatory Orders Atenolol/Chlorthalidone [Atenolol/Chlorthalidone 50-25] 1 tab PO BID 09/13/17 Canagliflozin [Invokana] 300 mg PO DAILY 09/13/17 Enalapril Maleate [Vasotec] 20 mg PO BID 09/13/17 glipiZIDE XL [Glucotrol XL] 10 mg PO BID 09/13/17 metFORMIN HCL ER [Glucophage XR] 1,000 mg PO BID 09/14/17 Insulin Aspart [NovoLOG Flexpen] 30 - 60 units SQ ACHS 10/06/18 Rosuvastatin [Crestor] 20 mg PO HS 04/12/20 Acetaminophen Tab [Tylenol] 650 mg PO Q6HR PRN tab 11/15/21 Ibuprofen [Motrin] 400 mg PO Q6H PRN #0 11/15/21 Pantoprazole [Protonix] 40 mg PO DAILY #30 tab 11/15/21 Cephalexin [Keflex] 500 mg PO Q6HR 10 Days #40 cap 01/11/22 HYDROcodone/APAP 7.5-325MG [[place] 7.5-325] 1 tab PO Q6HR PRN 3 Days #12 tab 03/30/23 Controlled Substance Measures - Controlled Substance Measures Is patient prescribed a controlled substance at discharge?: No
== END ==
LOC: PNWHC3 13:23
PROVIDERS: ATTEND Specialist
DX: S32.010A Wedge compression fracture of first lumbar vertebra, initial encounter for closed fracture (principal); M48.062 Spinal stenosis, lumbar region with neurogenic claudication; M54.51 Vertebrogenic low back pain; M51.36 Other intervertebral disc degeneration, lumbar region; M47.817 Spondylosis without myelopathy or radiculopathy, lumbosacral region; M19.90 Unspecified osteoarthritis, unspecified site; E78.5 Hyperlipidemia, unspecified; I10 Essential (primary) hypertension; J43.9 Emphysema, unspecified; G47.33 Obstructive sleep apnea (adult) (pediatric); E11.51 Type 2 diabetes mellitus with diabetic peripheral angiopathy without gangrene; Z85.46 Personal history of malignant neoplasm of prostate; Z79.84 Long term (current) use of oral hypoglycemic drugs; Z79.4 Long term (current) use of insulin; Z79.899 Other long term (current) drug therapy; Z87.891 Personal history of nicotine dependence; X58.XXXA Exposure to other specified factors, initial encounter
CPT/HCPCS: 99211

== ENCOUNTER → 2024-02-19 | Outpatient (CLI) | payer MEDICARE ==
--- NOTE | 2024-02-19 14:40 | P.PAINPG ---
PQRS Measure Charge Sheet Comment: HISTORY OF PRESENT ILLNESS: A 73 yr old male w at side presents today w severe and chronic LBP > 40 yrs secondary to L1 Compression Fracture, DDD, spondylosis and facet arthropathy without myelopathy for evaluation of MRI results. Pt states pain level is provoked at 6 /10 in intensity, constant, localized in the lumbar spine, predominantly axial, achy in character w occasional shooting pain towards the R buttock and RLE. Pain is provoked by bending. Pain is alleviated by PT x 6 wks which ended in Nov 2023, physician guided home exercises/ stretches daily since Nov 2023, medications, manual massage, repositioning and rest. Oswestry axial pain score at 31. Interventional procedures include Medications include Tyl Arthritis REVIEW OF ORGAN SYSTEMS: CONSTITUTIONAL: No fevers or chills. No recent weight loss. NEUROLOGICAL: + numbness and tingling along the distal extremities. No seizure disorders or headaches. MUSCULOSKELETAL: + pain PSYCHIATRIC: Denies current depression or suicidal thoughts. Physical Examinations : Constitutional : Cooperative , not in acute distress . Neurologic : Cranial nerve II to XII intact. No focal neurological deficits. Psychiatric : alert & oriented x 3. Matching mood & appropriate affect. Judgment & insight intact. Musculoskeletal : Cervical Spine Motor strength in the deltoid and biceps: Normal right side. Normal Left side Motor strength biceps and the wrist extensors: Normal right side . Normal left side Motor strength in the triceps muscle: Normal right side. Normal left side Deep tendon reflexes: Normal at the biceps. Normal at Brachioradialis. Normal at triceps Vertebral body tenderness to deep palpation over Cervical facet loading test: positive bilaterally Spurling test: positive bilaterally Neck distraction test: positive bilaterally Roberto sign: positive bilaterally Lumbar spine Motor strength lower extremities ,thigh and legs 5/5 Right side , 5/5 Left side Deep tendon reflexes : Normal Knee Jerk. Normal Ankle Jerk Vertebral body tenderness over L4 Gotti Test positive BL L3-L4 Lumbar facet Loading Test: positive Right / positive Left Range of motion of the lumbar spine Flexion 30 degrees, extension 10 degrees Straight Leg Raise test: Left/ Right positive at degrees Curly test: positive right / positive left. Severe tenderness over the Sacroiliac joint on the Right / Left sides Gaenslen test: positive bilaterally Seated flexion test: positive bilaterally. Sacral spine : Severe tenderness over the Sacroiliac joint: right side / left side Range of motion: Flexion of the lumbar spine <60 degrees Range of motion: Extension of the lumbar spine <20 degrees Gaenslen's Test positive Curly test: positive right side / left side Thigh Thrust Test Sacral Thrust Test Imaging: Lumbar x ray reviewed MRI non contrast of the lumbar spine from 01/26/24 reviewed Assessment/ Plan : L1 Compression Fracture, Lumbar DDD Recommendation of RICCO L3-L4 #1. May need a series of injections for optimal pain relief. Risks, benefits of procedure discussed and pt verbalized understanding. Protocol for discontinuation/ continuation of medications caroline procedure discussed. All questions answered. I have spent greater than 30 minutes on patient care today. Dr García was available by phone for the evaluation of this patient. The time was used to review the medical records including relevant urine studies and Prescription history (MAPs), review of the available imaging, evaluation and examination of the patient, coordination of care with the medical staff and if applicable referring physicians, as well as creation of the medical record PQRS Narrative: Smoking Status Never smoker Hx Alcohol Use (MH) No Home Medications: Ambulatory Orders Atenolol/Chlorthalidone [Atenolol/Chlorthalidone 50-25] 1 tab PO BID 09/13/17 Enalapril Maleate [Vasotec] 20 mg PO BID 09/13/17 glipiZIDE XL [Glucotrol XL] 10 mg PO BID 09/13/17 metFORMIN HCL ER [Glucophage XR] 1,000 mg PO BID 09/14/17 Insulin Aspart [NovoLOG Flexpen] 30 - 60 units SQ ACHS 10/06/18 Rosuvastatin [Crestor] 20 mg PO HS 04/12/20 Acetaminophen Tab [Tylenol] 650 mg PO Q6HR PRN tab 11/15/21 Dapagliflozin Propanediol [Farxiga] 10 mg PO DAILY 02/19/24 Semaglutide [Ozempic] 2 mg SQ WEEKLY 02/19/24 diazePAM [Valium] 5 mg PO DAILY PRN 1 Days #2 tab 02/19/24 Controlled Substance Measures - Controlled Substance Measures Is patient prescribed a controlled substance at discharge?: Yes When asked, does pt state using other controlled substances?: Yes If prescribed controlled substance>3 days was MAPS reviewed?: Prescribed <3 Days
[2024-02-19 14:44] VITALS: BP 166/94; PULSE 79; RESP 16; TEMP 98.4
== END ==
LOC: PNWHC3 13:24
PROVIDERS: ATTEND Specialist
DX: M48.56XA Collapsed vertebra, not elsewhere classified, lumbar region, initial encounter for fracture (principal); M51.36 Other intervertebral disc degeneration, lumbar region
CPT/HCPCS: 99211

== ENCOUNTER 2024-03-11 08:09 | Day surgery (SDC) | payer MEDICARE ==
[2024-03-11 08:55] LABS: Glucose,Whole Blood 152 mg/dL (70-110)
[2024-03-11 09:00] VITALS: RESP 16; TEMP 97.9
[2024-03-11 09:42] VITALS: PULSE 79
--- NOTE | 2024-03-11 09:47 | P.PCN ---
Description of Procedure: PREOPERATIVE DIAGNOSIS: 1- Lumbar Degenerative Disc Diseases 2-Lumbar spondylosis with Facet arthropathy without myelopathy. 3-lumbar spinal stenosis POSTOPERATIVE DIAGNOSIS: 1-lumbar degenerative disc disease. 2-lumbar spondylosis with facet arthropathy without myelopathy. 3-lumbar spinal stenosis. PROCEDURE Attempted lumbar epidural steroid injection secondary to inability position because of extreme morbid obesity. ANESTHESIA: Lidocaine 1% subcutaneously. In OR continuous pulse ox, EKG, blood pressure and verbal communication was maintained with the patient. EBL: Minimal PROCEDURE INDICATION: Before the procedure were discussed with the patient detailed procedure, alternatives, complications including infection, bleeding, nerve damage, paralysis all of which could be permanent. Patient understands and all questions were answered. PATIENT WEIGHS 172 KG WITH BMI 55. PROCEDURE DESCRIPTION : After getting consent, patient in OR . Because of the nominal girth patient could not be in prone position. Attempted prone position but patient got hypoxic. Then tried in lateral position with significant difficulty. Could not get any AP view of the fluoroscope to identify vertebral space. In lateral view had some identification of the vertebra. After injecting 10 mL of plain 1% lidocaine subcutaneously 18-gauge Touhy needle was attempted without success. At this point decided to abandon the procedure. DISPOSITION / PLANS: The patient tolerated the procedure well. No complication. The patient was placed in a supine position and transferred to the recovery area in a stable condition for observation. There was no evidence of lower extremity motor or sensory deficit after the procedure. Patient was discharged from the recovery room after meeting discharge criteria. Home discharge instructions were given to the patient by the staff. The patient was reexamined prior to discharge. The patient will schedule a follow up in the clinic in 2-4 weeks.
[2024-03-11 09:54] VITALS: BP 126/85
--- NOTE | 2024-03-11 09:58 | FL ---
EXAMINATION TYPE: FL guided pain mgmt statistic Intraoperative/procedural fluoroscopic services were provided. Total fluoroscopy time is 0.6 seconds with a total of 1 submitted images to PACS. Please se e the operative/procedural note for further details. DAP: [id number] mGym2
== END 2024-03-11 10:02 | disposition home or self-care (01) ==
LOC: ORPAIN 08:09
PROVIDERS: ATTEND Pain Medicine Interventional Pain Medicine
DX: M47.816 Spondylosis without myelopathy or radiculopathy, lumbar region (principal); M48.061 Spinal stenosis, lumbar region without neurogenic claudication; M51.36 Other intervertebral disc degeneration, lumbar region
CPT/HCPCS: 62323

== ENCOUNTER → 2024-04-01 | Outpatient (CLI) | payer MEDICARE ==
[2024-04-01 12:08] VITALS: BP 193/91; PULSE 73; RESP 16
--- NOTE | 2024-04-01 14:16 | P.PAINPG ---
PQRS Measure Charge Sheet Comment: HISTORY OF PRESENT ILLNESS: A 74 yr old male w at side presents today w severe and chronic LBP > 40 yrs secondary to L1 Compression Fracture, DDD, radiculopathy, DDD, spondylosis and facet arthropathy without myelopathy for medication refills after failed RICCO attempt. Pt states pain level is provoked at 6 /10 in intensity, constant, localized in the lumbar spine, predominantly axial, achy in character w occasional shooting pain towards the R buttock and RLE. Pain is provoked by bending. Pain is alleviated by PT x 6 wks which ended in Nov 2023, physician guided home exercises/ stretches daily since Nov 2023, medications, manual massage, repositioning and rest. Oswestry axial pain score at 31. Interventional procedures include Medications include Tyl Arthritis REVIEW OF ORGAN SYSTEMS: CONSTITUTIONAL: No fevers or chills. No recent weight loss. NEUROLOGICAL: + numbness and tingling along the distal extremities. No seizure disorders or headaches. MUSCULOSKELETAL: + pain PSYCHIATRIC: Denies current depression or suicidal thoughts. Physical Examinations : Constitutional : Cooperative , not in acute distress . Neurologic : Cranial nerve II to XII intact. No focal neurological deficits. Psychiatric : alert & oriented x 3. Matching mood & appropriate affect. Judgment & insight intact. Musculoskeletal : Cervical Spine Motor strength in the deltoid and biceps: Normal right side. Normal Left side Motor strength biceps and the wrist extensors: Normal right side . Normal left side Motor strength in the triceps muscle: Normal right side. Normal left side Deep tendon reflexes: Normal at the biceps. Normal at Brachioradialis. Normal at triceps Vertebral body tenderness to deep palpation over Cervical facet loading test: positive bilaterally Spurling test: positive bilaterally Neck distraction test: positive bilaterally Roberto sign: positive bilaterally Lumbar spine Motor strength lower extremities ,thigh and legs 5/5 Right side , 5/5 Left side Deep tendon reflexes : Normal Knee Jerk. Normal Ankle Jerk Vertebral body tenderness over L4 Gotti Test positive BL L3-L4 Lumbar facet Loading Test: positive Right / positive Left Range of motion of the lumbar spine Flexion 30 degrees, extension 10 degrees Straight Leg Raise test: Left/ Right positive at degrees Curly test: positive right / positive left. Severe tenderness over the Sacroiliac joint on the Right / Left sides Gaenslen test: positive bilaterally Seated flexion test: positive bilaterally. Sacral spine : Severe tenderness over the Sacroiliac joint: right side / left side Range of motion: Flexion of the lumbar spine <60 degrees Range of motion: Extension of the lumbar spine <20 degrees Gaenslen's Test positive Curly test: positive right side / left side Thigh Thrust Test Sacral Thrust Test Imaging: Lumbar x ray reviewed MRI non contrast of the lumbar spine from 01/26/24 reviewed Assessment/ Plan : L1 Compression Fracture, Lumbar DDD Recommendation of medication management. Diclofenac gel 3% apply to AA BID Disp 1 tube w w RF. Use, side effects, adverse reactions, safe storage discussed. All questions answered. I have spent greater than 30 minutes on patient care today. Dr García was available by phone for the evaluation of this patient. The time was used to review the medical records including relevant urine studies and Prescription history (MAPs), review of the available imaging, evaluation and examination of the patient, coordination of care with the medical staff and if applicable referring physicians, as well as creation of the medical record PQRS Narrative: Smoking Status Never smoker Hx Alcohol Use (MH) No Home Medications: Ambulatory Orders Atenolol/Chlorthalidone [Atenolol/Chlorthalidone 50-25] 1 tab PO BID 09/13/17 Enalapril Maleate [Vasotec] 20 mg PO BID 09/13/17 glipiZIDE XL [Glucotrol XL] 10 mg PO BID 09/13/17 metFORMIN HCL ER [Glucophage XR] 1,000 mg PO BID 09/14/17 Insulin Aspart [NovoLOG Flexpen] 30 - 60 units SQ ACHS 10/06/18 Rosuvastatin [Crestor] 20 mg PO HS 04/12/20 Acetaminophen Tab [Tylenol] 650 mg PO Q6HR PRN tab 11/15/21 Dapagliflozin Propanediol [Farxiga] 10 mg PO DAILY 02/19/24 Semaglutide [Ozempic] 2 mg SQ WEEKLY 02/19/24 diazePAM [Valium] 5 mg PO DAILY PRN 1 Days #2 tab 02/19/24 Diclofenac Sodium Gel [Voltaren 1% Gel] 100 gm TOPICAL BID 30 Days #1 each 04/01/24 Controlled Substance Measures - Controlled Substance Measures Is patient prescribed a controlled substance at discharge?: No
== END ==
LOC: PNWHC3 11:14
PROVIDERS: ATTEND Anesthesiology
DX: M48.56XA Collapsed vertebra, not elsewhere classified, lumbar region, initial encounter for fracture (principal); M51.36 Other intervertebral disc degeneration, lumbar region
CPT/HCPCS: 99211

== ENCOUNTER 2024-07-15 06:19 | Day surgery (SDC) | payer MEDICARE ==
[2024-07-14 14:22] VITALS: BMI 53.1
[~2024-07-15 06:19] MED LIST changes: +ALPRAZolam 0.25 MG TAB PO PRN; +ALPRAZolam 0.5 MG TAB PO PRN; +ATORVASTATIN 80 MG TAB PO STA; +HEPARIN SODIUM,PORCINE (1 ML) 2,500 UNIT in SODIUM CHLORIDE 0.9% 250 ML IRRIGATION PRN; +HEPARIN SODIUM,PORCINE 10,000 UNIT in SODIUM CHLORIDE 0.9% 1,000 ML IRRIGATION PRN; -LACTATED RINGERS 1,000 ML IV SCH; +NITROGLYCERIN SL TABS 0.4 MG TAB SUBLINGUAL PRN
[2024-07-15] MEDS: IV FLUID CONTINUATION 1,000 ML IV ONE (06:45)
[2024-07-15 06:56] LABS: Glucose,Whole Blood 140 mg/dL (70-110)
[2024-07-15] MEDS: ASPIRIN 325 MG TAB PO STA (07:03)
[2024-07-15] MEDS: SODIUM CHLORIDE 0.9% 1,000 ML in EMPTY BAG 1 BAG IV SCH (07:03)
[2024-07-15 07:15] VITALS: TEMP 98.7
[2024-07-15] MEDS: HEPARIN SODIUM,PORCINE 10,000 UNIT in SODIUM CHLORIDE 0.9% 1,000 ML IRRIGATION ONE (07:33)
[2024-07-15] MEDS: HEPARIN SODIUM,PORCINE (1 ML) 2,500 UNIT in SODIUM CHLORIDE 0.9% 250 ML IRRIGATION ONE (07:33)
[2024-07-15] MEDS: fentaNYL (PF) 50 MCG/ML 2 ML AMP IVP ONE (07:40)
[2024-07-15] MEDS: LIDOCAINE 1% INJ 10MG/ML (20 ML MDV) SQ ONE (07:41)
[2024-07-15] MEDS: VERAPAMIL SYRINGE (5 MG/10 ML) INTRAARTER ONE (07:46)
[2024-07-15] MEDS: HEPARIN SODIUM 1,000 UN/ML (10ML VL) IVP ONE ×3 (07:49→08:31)
[2024-07-15] MEDS: CLOPIDOGREL 75 MG TAB PO ONE (08:00)
[2024-07-15] MEDS: IOPAMIDOL-370 100ML BTL INJ ONE ×2 (08:17→08:24)
[2024-07-15] MEDS ORDERED: ATROPINE SULFATE 0.1 MG/ML 10ML SYRINGE IV PRN (08:36)
[2024-07-15] MEDS ORDERED: RX INFO: IV CONTRAST WAS GIVEN 1 EACH MISC MISCELLANE PRN (08:36)
[2024-07-15] MEDS ORDERED: MAG HYDROX/AL HYDROX/SIMETH 30 ML CUP PO PRN (08:36)
[2024-07-15] MEDS ORDERED: ZOLPIDEM 5 MG TAB PO PRN (08:36)
[2024-07-15] MEDS ORDERED: NITROGLYCERIN SL TABS 0.4 MG TAB SUBLINGUAL PRN (08:36)
[2024-07-15] MEDS: ACETAMINOPHEN TAB 500 MG TAB PO STA (08:41)
[2024-07-15] MEDS: atenoloL 50 MG TAB PO STA (08:43)
[2024-07-15] MEDS: lisinopriL 20 MG TAB PO STA (08:43)
[2024-07-15] MEDS: CHLORTHALIDONE 25 MG TAB PO SCH (08:43)
[2024-07-15] MEDS ORDERED: SODIUM CHLORIDE 0.9% 1,000 ML in EMPTY BAG 1 BAG IV SCH (08:45)
--- NOTE | 2024-07-15 08:47 | P.CARDCATH ---
Date of Procedure: 07/15/24 Description of Procedure: Cardiac Catheterization: The patient is a 74-year-old male with a history of hypertension, hyperlipidemia, diabetes, CAD by coronary angiography in 2019 who presented with worsening dyspnea and increase in his ventricular ectopic activity. Because of his weight he was not a candidate for a stress test or a CT angiogram. Recommendations were made regarding cardiac catheterization, the risks and the complications were discussed with the patient who is in full understanding and agreement. Procedure Description: Patient was brought to golf course lab[facility] in fasting semi-sedated state after receiving Fentanyl and Benadryl achieiving moderate conscious sedated state. Using Xylocaine Anesthesia and modified Seldinger technique, a 6-Kyrgyz sheath was introduced in the right radial artery . Subsequently, selective coronary angiography was performed using a 5-Kyrgyz 3.5 bend Jaun catheter. Multiple views of the coronary artery including hemiaxial views were obtained. The right Juan catheter was used to cross the aortic valve and LVEDP was calculated. PCI: After removing the catheters a 6 Kyr[place]z 0.75 AL guiding catheter was introduced into the system and after cannulating the right coronary ostium a 0.014 BMW J- wire was positioned in the distal right coronary artery. Subsequently a [employer] Zapata eye IVUS catheter was introduced and imaging were obtained and revealed mild calcification with a distal lumen measuring about 4.0 mm in diameter. After removing the catheter a 3.5 x 28 mm Xience mallory point stent was advanced and deployed at 16 johnathan, repeat IVUS imaging was performed, and revealed no dissection. After removing the catheter a 4.0 x 20 mm NC trek balloon was advanced and 1 inflation at 12 johnathan was performed. After removing the balloon and the wire images were obtained and revealed stable successful stenting. Following that, catheter and sheath were removed. Hemostasis was obtained with deployment of vascular band . There was no immediate complication. Patient was returned to room in stable condition. Of note, the patient received a total of 10,500 units of intravenous heparin as well as intra-arterial verapamil. His ACT was followed. He received an oral loading dose of clopidogrel. He had no chest discomfort or EKG changes with the inflations. Findings: Fluoroscopy: Calcification of the left main and LAD was noted. Left main: This is a large size vessel, bifurcating into LAD and left circumflex, left main has no obstructive disease LAD: This is a large size vessel, giving rise to proximal moderate diagonal branch. The proximal LAD has a 40 to 50% eccentric lesion with no progression compared to 2019 the rest of the vessel has no high-grade stenosis Left circumflex: This is a large nondominant vessel giving rise to a large obtuse marginal branch in the midsegment. The left circumflex and its branches have no evidence of obstructive disease RCA: This is a large dominant vessel giving rise to a PDA and a PLV distally. The mid right coronary artery has an eccentric 80% stenosis with a long segment of intimal plaque. Left Ventriculogram: Not performed Hemodynamics: There was no gradient across aortic valve, LVEDP was 20-25 mmHg Conclusion: 1. Severe stenosis in the mid RCA 2. Mild to moderate disease in the proximal LAD with no progression compared to 2019 3. No evidence of obstructive disease in the left circumflex 4. Successful stenting of the mid RCA with IVUS guidance and reduction of stenosis from 80% to less than 5% and TROY-3 flow Recommendations: The patient will continue on aspirin and clopidogrel for 6 months without any interruption with aggressive coronary risks modification, attempting to maintain LDL less than 70 mg/dL. The findings and the recommendations were discussed with the patient and the family and they were in full understanding and agreement. Duration of sedation is 44 minutes.
[2024-07-15] MEDS ORDERED: NON FORMULARY DRUG (Glipizide Xl 10 MG Tab.Er.24) PO SCH (09:00)
[2024-07-15] MEDS ORDERED: NON FORMULARY DRUG (Semaglutide [Ozempic] 2 MG/0.75 ML Pen.Injctr) SQ SCH (09:00)
[2024-07-15] MEDS ORDERED: NON FORMULARY DRUG (Ubidecarenone [Co Q-10] 300 MG Capsule) PO SCH (09:00)
[2024-07-15] MEDS ORDERED: ENALAPRIL MALEATE 20 MG PO SCH (09:00)
[2024-07-15] MEDS ORDERED: NON FORMULARY DRUG (Atenolol/Chlorthalidone [Atenolol/Chlorthalidone 50-25] 1 EACH Tablet) PO SCH (09:00)
[2024-07-15 09:04] VITALS: RESP 20
[2024-07-15] MEDS: INSULIN ASPART (NovoLOG) 100 UNIT/ML VIAL SQ ONE (12:50)
[2024-07-15 18:11] VITALS: BP 155/72; PULSE 78
[2024-07-15] MEDS ORDERED: NON FORMULARY DRUG (Rosuvastatin 20 MG Tablet) PO SCH (21:00)
[2024-07-16] MEDS ORDERED: CLOPIDOGREL 75 MG TAB PO SCH (09:00)
[2024-07-16] MEDS ORDERED: ASPIRIN 81 MG PO SCH (09:00)
== END 2024-07-15 12:58 | disposition home or self-care (01) ==
LOC: CATHCVL 06:19
PROVIDERS: ATTEND Internal Medicine Interventional Cardiology
DX: I25.10 Atherosclerotic heart disease of native coronary artery without angina pectoris (principal); I10 Essential (primary) hypertension; E11.9 Type 2 diabetes mellitus without complications; E78.5 Hyperlipidemia, unspecified; Z87.891 Personal history of nicotine dependence
CPT/HCPCS: 99152; 99153; 92978; 93458; C9600; C1769 ×3; C1894; C1753; C1874; C1887; C1725; J1644 ×3; J2003; J3010; Q9967